=== PATIENT | female | born 1950 | race Caucasian/White ===

== ENCOUNTER → 2016-11-20 | Outpatient (CLI) | payer OTHER ==
[~2016-11-20] MED LIST: AMLO-110 PO; ASPI81TA28 PO; ATOR-24 PO; CIPR-255 PO; CLOP1TAB15 PO; DOCU-94 PO; LOSA50TA6 PO; MELA1TAB5 PO; METO50TA16 PO; NICO4GUM PO
== END | disposition home or self-care (01) ==
LOC: C.LABSPEC 17:16
PROVIDERS: ATTEND Urology
DX: C67.9 Malignant neoplasm of bladder, unspecified (principal)

== ENCOUNTER → 2017-04-08 | Outpatient (CLI) | payer OTHER ==
[~2017-04-08] MED LIST changes: +ASPI325T4 PO; +CALC200T PO; +CHOL100010 PO; +FSM70 PO; +NAPR1TAB9 PO; +PHEN-876 PO; +POTA10CA28 PO; +TPRSR/50 PO; +VITACAP37 PO
== END | disposition home or self-care (01) ==
LOC: C.LABSPEC 16:47
PROVIDERS: ATTEND Nurse Practitioner Family
DX: N39.0 Urinary tract infection, site not specified (principal)

== ENCOUNTER → 2017-06-25 | Outpatient (CLI) | payer OTHER ==
[~2017-06-25] MED LIST changes: -ASPI325T4 PO; -CALC200T PO; -CHOL100010 PO; -FSM70 PO; -NAPR1TAB9 PO; -PHEN-876 PO; -POTA10CA28 PO; -TPRSR/50 PO; -VITACAP37 PO
== END | disposition home or self-care (01) ==
LOC: C.PATHSPEC 17:26
PROVIDERS: ATTEND Urology
DX: C67.9 Malignant neoplasm of bladder, unspecified (principal)

== ENCOUNTER 2017-10-08 06:58 | Day surgery (SDC) | payer OTHER ==
[2017-10-02 09:57] VITALS: BMI 25.0
--- NOTE | 2017-10-02 10:37 | PAT Medication Instructions ---
Service Date Oct 02, 2017. Current Home Medication List Alendronate Sodium (Alendronate Sodium), 1 TAB PO WK Amlodipine (Norvasc), 5 MG PO QAM Aspirin (Aspirin), 325 MG PO QAM Atorvastatin (Lipitor), 40 TAB PO HS Calcium Carbonate-Vitamin D (Oscal 500/200 D-3), 1 TAB PO BID Cholecalciferol (Vitamin D), 1 TAB PO QAM Losartan Potassium (Cozaar), 50 MG PO QAM Melatonin (Kp Melatonin), 1 TAB PO HS Metoprolol Succinate (Metoprolol Succinate ER), 1 TAB PO BID Naproxen (Aleve), 220 MG PO DAILY PRN for Pain or Fever Potassium Chloride (Micro-K Ext Rel), 10 MEQ PO QAM Vitamin E (E-400), 1 TAB PO QAM Medication Instructions For Your Scheduled Surgery - Hold the following medications 3 days prior to surgery per surgeon's instructions: Aspirin (Aspirin), 325 MG PO QAM - Hold the following medications as of 10/03/17: Vitamin E (E-400), 1 TAB PO QAM Naproxen (Aleve), 220 MG PO DAILY PRN for Pain or Fever (per surgeon's instructions) - Continue as directed: Alendronate Sodium (Alendronate Sodium), 1 TAB PO WK - Hold the following medications the morning of surgery: Cholecalciferol (Vitamin D), 1 TAB PO QAM Losartan Potassium (Cozaar), 50 MG PO QAM Calcium Carbonate-Vitamin D (Oscal 500/200 D-3), 1 TAB PO BID Potassium Chloride (Micro-K Ext Rel), 10 MEQ PO QAM - Take the following medications the morning of surgery with a sip of water OTHERWISE NOTHING TO EAT OR DRINK AFTER MIDNIGHT: Amlodipine (Norvasc), 5 MG PO QAM Metoprolol Succinate (Metoprolol Succinate ER), 1 TAB PO BID - Take the following medications as scheduled the night before surgery: Melatonin (Kp Melatonin), 1 TAB PO HS Atorvastatin (Lipitor), 40 TAB PO HS Calcium Carbonate-Vitamin D (Oscal 500/200 D-3), 1 TAB PO BID Metoprolol Succinate (Metoprolol Succinate ER), 1 TAB PO BID If you have any questions please call us at [phone] or [phone] or [phone]
[2017-10-02 11:25] LABS: BASO % 0.1 %; BASO ABS # 0.01 K/uL (0-0.2); COMPLETE YES; EOS % 1.2 %; HEMATOCRIT 44.6 % (37-47); IG% 0.2 %; LYMPH % 23.7 %; LYMPH ABS # 2.11 K/uL (1.2-3.4); MEAN CELL VOLUME 93.3 fL (80-100); MEAN CORPUSCULAR HEMOGLOBIN 31.2 pg (25-34); MEAN CORPUSCULAR HGB CONC 33.4 g/dl (32-36); MEAN PLATELET VOLUME 9.7 fL (7.4-10.4); MONO % 8.5 %; NEUT % 66.3 %; PLATELET COUNT 227 K/uL (130-400); RED BLOOD COUNT 4.78 M/uL (4.2-5.4); WHITE BLOOD COUNT 8.89 K/uL (4.8-10.8)
[2017-10-02 11:34] LABS: URINE APPEARANCE CLEAR (CLEAR); URINE BILIRUBIN NEG (NEG); URINE COLOR YELLOW; URINE EPITHELIAL CELL AUTO >30 /lpf (0-5); URINE NITRITE NEG (NEG); URINE SPECIFIC GRAVITY 1.017 (1.000-1.030); UROBILINOGEN NEG (NEG)
[2017-10-02 11:36] LABS: MANUAL MICROSCOPIC REQUIRED? NO; REVIEW REQ? NO
--- NOTE | 2017-10-02 11:43 | DIAGNOSTIC IMAGING REPORT ---
TWO VIEW CHEST CLINICAL HISTORY: Preoperative examination. FINDINGS: PA and lateral chest radiographs are compared to study dated 08/10/2016. The heart is mildly enlarged and there is atherosclerotic calcification of the thoracic aorta. The pulmonary vasculature is noncongested. Linear atelectasis versus scarring is seen at the left lung base. No airspace consolidation or pleural effusion is identified. There is no pneumothorax. The skeletal structures are osteopenic. Degenerative change and scoliosis are noted in the thoracic spine. IMPRESSION: Mild cardiac enlargement with no active disease in the chest. Electronically signed by: Radu Alejo M.D. 10/02/2017 11:41 AM Dictated Date/Time: 10/02/2017 11:40 AM
[2017-10-02 12:13] LABS: BUN/CREATININE RATIO 29.4 (10-20); CALCIUM 9.5 mg/dl (8.5-10.1); CREATININE 0.69 mg/dl (0.60-1.20)
[~2017-10-08] VITALS: Ht 154.9 cm; Wt 61.3 kg
[~2017-10-08 06:58] MED LIST changes: +ASPI325T4 PO; -ASPI81TA28 PO; +CALC200T PO; +CHOL100010 PO; -CIPR-255 PO; +CIPROFLOXACIN / D5W 400 MG IV SCH; -CLOP1TAB15 PO; -DOCU-94 PO; +FSM70 PO; +LACTATED RINGER'S 1000ML 1,000 ML IV SCH; -METO50TA16 PO; +NAPR1TAB9 PO; -NICO4GUM PO; +POTA10CA28 PO; +TPRSR/50 PO; +VITACAP37 PO
[2017-10-08 07:35] VITALS: BP 123/70; PULSE 64; TEMP 36.9; O2SAT 98; Ht 154.9 cm; Wt 61.3 kg
[2017-10-08] MEDS ORDERED: ONDANSETRON INJ 2 MG/ML 2 ML VIAL ONE (07:54)
[2017-10-08] MEDS ORDERED: FENTANYL CITRATE INJ 50 MCG/1 ML 2 ML VIAL ONE (07:54)
[2017-10-08] MEDS ORDERED: EpHEDrine SULFATE 50MG/5ML SYR ONE (07:54)
[2017-10-08] MEDS ORDERED: PHENYLEPHRINE 100MCG/ML 5ML SYR ONE (07:54)
[2017-10-08] MEDS ORDERED: LIDOCAINE HCL 2% 2 ML VIAL (20MG/ML) ONE (07:54)
[2017-10-08] MEDS ORDERED: DEXAMETHASONE SOD INJ 4 MG/ML VIAL ONE (07:54)
[2017-10-08] MEDS ORDERED: MIDAZOLAM HCL 1 MG/ML 2ML VIAL ONE (07:54)
[2017-10-08] MEDS ORDERED: PROPOFOL IV EMULSION 10 MG/ML 20 ML VIAL IV ONE (07:54)
--- NOTE | 2017-10-08 08:40 | History & Physical Bridge Note ---
H&P Re-Evaluation Bridge Note: I have examined the patient, reviewed the History & Physical and in the interval since the performance of the History & Physical I have noted the following changes of clinical significance: No changes noted
[2017-10-08] MEDS ORDERED: MITOMYCIN FOR IR SCH (09:30)
[2017-10-08] MEDS ORDERED: EpHEDrine SULFATE INJ 50 MG/ML AMP IV PRN (09:45)
[2017-10-08] MEDS ORDERED: LABETALOL HCL IV 5 MG/ML 20ML IV PRN (09:45)
[2017-10-08] MEDS ORDERED: ONDANSETRON INJ 2 MG/ML 2 ML VIAL IV PRN (09:45)
[2017-10-08] MEDS ORDERED: MEPERIDINE HCL 25 MG/ML CARP IV PRN (09:45)
[2017-10-08] MEDS ORDERED: HYDROmorphone INJ 0.5 MG/0.5 ML SYR IV PRN (09:45)
[2017-10-08] MEDS ORDERED: FENTANYL CITRATE INJ 50 MCG/1 ML 2 ML VIAL IV PRN (09:45)
[2017-10-08] MEDS ORDERED: ATROPINE SULFATE 0.1 MG/ML 5ML SYR IV PRN (09:45)
--- NOTE | 2017-10-08 10:26 | [facility] Post Operative Brief Note ---
Immediate Operative Summary Operative Date Oct 08, 2017. Pre-Operative Diagnosis Primary Transitional cell carcinoma of bladder Post-Operative Diagnosis Primary Transitional cell carcinoma of bladder Procedure(s) Performed cysto multiple bladder biopsies around ureteral orifices and bladder neck Surgeon Dr. 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
[2017-10-08] MEDS ORDERED: PHEN-876 PO (10:28)
--- NOTE | 2017-10-08 10:30 | Discharge Instructions ---
Discharge Instructions Date of Service Oct 08, 2017. Visit Reason for Visit: Bladder Tumor Discharge Discharge Diagnosis / Problem: post op bladder biopsies Discharge Goals Goal(s): Improve disease control Activity Recommendations Activity Limitations: resume your previous activity Anesthesia . Post Anesthesia Instructions: If you have had General Anesthesia or IV Sedation: * Do not drive today. * Resume driving when surgeon permits. * Do not make important decisions or sign legal documents today. * Call surgeon for: 1. Temperature elevations greater than 101 degrees F. 2. Uncontrollable pain. 3. Excessive bleeding. 4. Persistent nausea and vomiting. 5. Medication intolerance (nausea, vomiting or rash). * For nausea and vomiting use only clear liquids such as: tea, soda, bouillon until nausea subsides, then gradually increase diet as tolerated. * If you have any concerns or questions, call your surgeon's office. If physician is unavailable and it is an emergency, call 911 or go to the nearest emergency room. . Diet Recommendations Recommended Home Diet: resume previous diet Procedures Procedures Performed: cysto multiple bladder biopsies around ureteral orifices and bladder neck Pending Studies Studies pending at discharge: no Medical Emergencies . Who to Call and When: Medical Emergencies: If at any time you feel your situation is an emergency, please call 911 immediately. . Non-Emergent Contact Non-Emergency issues call your: Urologist you have bleeding with clots that does not stop after several days , blood tinged urine is ok . . "Provider Documentation" section prepared by Anand Olivo. .
--- NOTE | 2017-10-08 10:36 | Anesthesiology Progress Note ---
Anesthesia Post Op Note Date & Time Oct 08, 2017 at 10:36 Vital Signs Pain Intensity: 0 Vital Signs Past 12 Hours Date Time Temp Pulse Resp B/P (MAP) Pulse Ox O2 Delivery O2 Flow Rate FiO2 10/08/17 10:25 83 18 114/68 97 Oxymask 10 10/08/17 10:15 78 16 105/66 96 Oxymask 10 10/08/17 10:05 36.4 81 18 109/66 95 Oxymask 10 10/08/17 07:35 36.9 64 18 123/70 (87) 98 Room Air Notes Mental Status: alert / awake / arousable, participated in evaluation Pt Amnestic to Procedure: Yes Nausea / Vomiting: adequately controlled Pain: adequately controlled Airway Patency, RR, SpO2: stable & adequate BP & HR: stable & adequate Hydration State: stable & adequate Anesthetic Complications: no major complications apparent
[2017-10-08 11:15] VITALS: BP 110/82; PULSE 81; TEMP 36.1; O2SAT 92
--- NOTE | 2017-10-08 11:28 | OPERATIVE REPORT ---
DATE OF OPERATION: 10/08/2017 DATE OF PROCEDURE: 10/08/2017. PROCEDURE PERFORMED: Multiple cup biopsies of the bladder. SURGEON: Dr. Anand Olivo. HISTORY OF PRESENTATION: The patient is a 67-year-old female who has had a long history of bladder cancer who has had several TURBTs in the past, whose last TURBT was not quite a year ago. She subsequently has had BCG who presented to the office with some changes in the bladder neck which she has had in the past, but could not rule out bladder cancer. The changes were inflammatory and there were some papillary changes and some erythema that mimicked CIS and possible papillary tumors. There also were changes that looked suspicious for cystitis glandularis. Because of the location around the ureteral orifices. bilaterally and right at the bladder neck, impossible to do adequate biopsies in the office. She is brought today for bladder biopsies and staging. DESCRIPTION OF THE PROCEDURE: The patient was taken to the operating room. She had been off aspirin for 3 days. She was given preoperative antibiotics. She was given general anesthesia with Venodyne stockings and placed in dorsal lithotomy position. Cystoscopy was performed initially with 110 degrees lens to thoroughly examine the bladder neck. There was a 7-8 mm papillary lesion right inside the bladder neck at the base of the trigone where it intersected with the bladder neck. There were some papillary changes at the bladder neck. There were some granulomatous changes around the left ureteral orifice and erythema around the right ureteral orifice, but clear efflux was seen bilaterally. Biopsies were taken around each ureteral orifice and then these areas were fulgurated. There was a lot of erythema which bleed easily and the fulguration was aggressive. Subsequent biopsies were taken of the papillary lesion on the right bladder neck and a second area in the left bladder neck and then another biopsy was taken lateral to the left ureteral orifice. All these areas were fulgurated. There was fulgurated anteriorly at the bladder neck that appeared also to be inflammatory and could not rule out tumor. At the end of the procedure, the rest of the bladder appeared clear. No other biopsies were taken. A Patiño catheter was placed and mitomycin was instilled and the catheter was clamped. She was sent to the recovery room in stable condition. I attest to the content of the Intraoperative Record and any orders documented therein. Any exception s are noted below.
[2017-10-08 11:45] VITALS: BP 122/63; PULSE 79; O2SAT 93
[2017-10-08 12:15] VITALS: BP 100/53; PULSE 82; TEMP 36.6; O2SAT 18
== END 2017-10-08 13:20 | disposition home or self-care (01) ==
LOC: C.ACU 06:58
PROVIDERS: ATTEND Urology
DX: C67.5 Malignant neoplasm of bladder neck (principal); I10 Essential (primary) hypertension; F17.200 Nicotine dependence, unspecified, uncomplicated; Z79.899 Other long term (current) drug therapy

== ENCOUNTER → 2017-11-05 | Outpatient (CLI) | payer OTHER ==
[~2017-11-05] MED LIST changes: -AMLO-110 PO; +AMLO5TAB3 PO; +CEFD1CAP14 PO; -CIPROFLOXACIN / D5W 400 MG IV SCH; +ENOX40IN SQ; +HYDR-5688 PO; -LACTATED RINGER'S 1000ML 1,000 ML IV SCH; +ONDA4TAB10 SL; +OPTIRAY 320 IV PRN; +PHEN-876 PO
--- NOTE | 2017-11-05 10:07 | DIAGNOSTIC IMAGING REPORT ---
CT ABD/PELVIS COMBO CLINICAL HISTORY: C67.9 Carcinoma of [id number] Gross hematuria/ COMPARISON STUDY: 07/17/2016 TECHNIQUE: Unenhanced images were obtained to the abdomen and pelvis. The patient was injected with 50 cc of Optiray 320. Findings 5 delay, the patient was rescanned in a dynamic helical fashion during intravenous administration of additional 68 cc of Optiray 320. A dose lowering technique was utilized adhering to the principles of ALARA. CT DOSE: 1015.20 mGycm FINDINGS: Lower chest: There are mild basilar atelectatic changes. Liver: There is a stable 1 cm hypodense lesion within the left hepatic lobe, consistent with a cyst. Gallbladder: Unremarkable. Spleen: Normal in size and attenuation. Pancreas: Unremarkable. Adrenal glands: Unremarkable. Kidneys: No renal, ureteral, or bladder calculi are visualized. There are tiny subcentimeter renal hypodensities, similar to the prior study and likely representing cysts. No solid renal masses are visualized. There is mild right-sided hydronephrosis with a dilated renal pelvis. This may be secondary to a congenital UPJ obstruction. The findings appear similar to the preceding study. There is an extrarenal pelvis on the left. No collecting system or ureteral filling defects are visualized. Bowel: There are no transition zones indicate bowel obstruction. No acute inflammatory changes are visualized. Peritoneum: There is no intraperitoneal free air or abdominal ascites. Vasculature: The abdominal aorta is normal in course and caliber. Adenopathy: None. Pelvic viscera: The uterus appears surgically absent. There is mild bladder base thickening with wall calcification. Skeletal structures: No destructive osseous lesions are seen. IMPRESSION: 1. Mild thickening and calcification of the bladder base 2. No evidence of pathologic adenopathy 3. No upper tract mucosal lesions identified 4. No renal, ureteral, or bladder calculi identified 5. Persistent mild UPJ type obstruction on the right Electronically signed by: Mendez Guardado M.D. 11/05/2017 10:05 AM Dictated Date/Time: 11/05/2017 9:54 AM
== END | disposition home or self-care (01) ==
LOC: C.CTS 09:25
PROVIDERS: ATTEND Urology
DX: C67.9 Malignant neoplasm of bladder, unspecified (principal); R31.0 Gross hematuria; R93.41 Abnormal radiologic findings on diagnostic imaging of renal pelvis, ureter, or bladder; Q62.39 Other obstructive defects of renal pelvis and ureter

== ENCOUNTER 2017-12-23 16:11 | Emergency (ER) | payer OTHER ==
[~2017-12-23] VITALS: Ht 154.9 cm; Wt 60.5 kg
[~2017-12-23 16:11] MED LIST changes: +AMLO-110 PO; -AMLO5TAB3 PO; -CEFD1CAP14 PO; -ENOX40IN SQ; -HYDR-5688 PO; -ONDA4TAB10 SL; -OPTIRAY 320 IV PRN
[2017-12-23 16:21] VITALS: TEMP 36.9; Ht 154.9 cm; Wt 60.5 kg
[2017-12-23] MEDS ORDERED: SODIUM CHLORIDE 0.9% 1000ML 1,000 ML IV STA (18:32)
[2017-12-23 19:06] LABS: BASO % 0.1 %; BASO ABS # 0.02 K/uL (0-0.2); EOS % 0.6 %; HEMATOCRIT 34.4 % (37-47); IG# 0.07 K/uL (0.00-0.02); LYMPH ABS # 0.62 K/uL (1.2-3.4); MEAN CELL VOLUME 88.4 fL (80-100); MEAN CORPUSCULAR HEMOGLOBIN 30.8 pg (25-34); MEAN CORPUSCULAR HGB CONC 34.9 g/dl (32-36); MEAN PLATELET VOLUME 8.4 fL (7.4-10.4); MONO ABS # 0.94 K/uL (0.11-0.59); NEUT % 88.9 %; PLATELET COUNT 420 K/uL (130-400); RED CELL DISTRIBUTION WIDTH CV 14.3 % (11.5-14.5); RED CELL DISTRIBUTION WIDTH SD 46.2 fL (36.4-46.3); WHITE BLOOD COUNT 15.65 K/uL (4.8-10.8)
[2017-12-23 19:25] LABS: ALBUMIN 1.8 gm/dl (3.4-5.0); CALCIUM 10.2 mg/dl (8.5-10.1); CREATININE 1.15 mg/dl (0.60-1.20); POTASSIUM 3.9 mmol/L (3.5-5.1)
[2017-12-23 19:28] LABS: TOTAL PROTEIN 6.5 gm/dl (6.4-8.2)
--- NOTE | 2017-12-23 19:33 | EMERGENCY ROOM VISIT NOTE ---
History Report prepared by Julieth: Rosa Velasquez Under the Supervision of: Dr. Kevon Swan D.O. First contact with patient: 18:24 Chief Complaint: GI ASSESSMENT Stated Complaint: C-DIFF Nursing Triage Summary: Diarrhea since Saturday. Worsened today. She relates that it is almost constant. History of Present Illness The patient is a 67 year old female who presents to the Emergency Room with complaints of worsening diarrhea starting 3 days ago. She has never had diarrhea like this before. She states her diarrhea is resolved as long as she does not eat or drink. She reports some nausea, but denies any vomiting. She is having abdominal pain and back pain. She denies any fever. She denies any history of C diff. The patient has a history of bladder removal, hypertension, hysterectomy, and spinal stenosis. Source of History: patient Onset: 3 days ago Position: other (global) Quality: other (diarrhea) Timing: worsening Associated Symptoms: + nausea, + abdominal pain, + back pain, No fevers, No vomiting Review of Systems See HPI for pertinent positives & negatives. A total of 10 systems reviewed and were otherwise negative. Past Medical & Surgical Medical Problems: (1) Bladder cancer (2) Chest pain (3) Hypertension (4) PVD (peripheral vascular disease) Surgical Problems: (1) History of hysterectomy (2) History of procedure for peripheral vascular disease (3) S/P urological surgery Family History FH: heart disease Hypertension Social History Smoking Status: Former Smoker Marital Status: Housing Status: lives alone Current/Historical Medications Scheduled Alendronate Sodium (Alendronate Sodium), 70 MG PO WK Amlodipine (Norvasc), 5 MG PO QAM Aspirin (Aspirin), 325 MG PO QAM Atorvastatin (Lipitor), 40 MG PO DAILY Calcium Carbonate-Vitamin D (Oscal 500/200 D-3), 1 TAB PO BID Cefdinir (Omnicef), 300 MG PO Q12H Cholecalciferol (Vitamin D), 1 TAB PO QAM Enoxaparin (Lovenox), 40 MG SQ DAILY Losartan Potassium (Cozaar), 50 MG PO QAM Melatonin (Kp Melatonin), 1 TAB PO HS Metoprolol Succinate (Metoprolol Succinate ER), 1 TAB PO BID Ondasetron Odt (Zofran Odt), 4 MG SL Q6H Phenazopyridine HCl (Pyridium), 200 MG PO TID Potassium Chloride (Micro-K Ext Rel), 10 MEQ PO QAM Vitamin E (E-400), 1 TAB PO QAM Scheduled PRN Naproxen (Aleve), 220 MG PO DAILY PRN for Pain or Fever Allergies Coded Allergies: No Known Allergies (Unverified , 10/02/17) Physical Exam Vital Signs Date Time Temp Pulse Resp B/P (MAP) Pulse Ox O2 Delivery O2 Flow Rate FiO2 12/23/17 21:49 87 16 93/56 92 12/23/17 21:17 84 16 106/57 91 Room Air 12/23/17 19:44 94 18 109/59 93 Room Air 12/23/17 18:26 85 16 100/58 96 Room Air 12/23/17 16:21 36.9 100 20 113/68 92 Room Air Physical Exam GENERAL: Patient is awake, alert, and in no acute distress. Patient is resting comfortably and showing no signs of anxiety EYES: The conjunctivae are clear. The pupils are round and reactive. EARS, NOSE, MOUTH AND THROAT: The nose is without any evidence of any deformity. Mucous membranes are moist tongue is midline NECK: The neck is nontender and supple. RESPIRATORY: Normal respiratory effort is noted there is no evidence of wheezing rhonchi or rales CARDIOVASCULAR: Regular rate and rhythm noted there no murmurs rubs or gallops normal S1 normal S2 GASTROINTESTINAL: The abdomen is mildly distended with tenderness in both lower quadrants. There was a bladder stoma noted in the suprapubic region. Clear yellow urine was noted. MUSCULOSKELETAL/EXTREMITIES: There is no evidence of gross deformity full range of motion is noted in the hips and shoulders SKIN: There is no obvious evidence of any rash. There are no petechiae, pallor or cyanosis noted. NEUROLOGIC: Patient is awake alert and oriented x3 Medical Decision & Procedures ER Provider Diagnostic Interpretation: X-ray results as stated below per interpretation by me and the radiologist. ABDOMEN 2VIEW W/PA CHEST RTN CLINICAL HISTORY: ABDOMINAL PAIN/GI pain COMPARISON STUDY: 10/02/2017 FINDINGS: Chronic atelectatic change left lung base. Lungs otherwise appear clear. There is right-sided ostomy. Ureteral stents are present possibly from an ileal conduit. Nonobstructive bowel pattern. 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 Nonobstructive bowel pattern. No acute process the chest. The above report was generated using voice recognition software. It may contain grammatical, syntax or spelling errors. Electronically signed by: Santana Gastelum M.D. 12/23/2017 8:55 PM Dictated Date/Time: 12/23/2017 8:54 PM Laboratory Results 12/23/17 18:55 Red Blood Count 3.89, Mean Corpuscular Volume 88.4, Mean Corpuscular Hemoglobin 30.8, Mean Corpuscular Hemoglobin Concent 34.9, Mean Platelet Volume 8.4, Neutrophils (%) (Auto) 88.9, Lymphocytes (%) (Auto) 4.0, Monocytes (%) (Auto) 6.0, Eosinophils (%) (Auto) 0.6, Basophils (%) (Auto) 0.1, Neutrophils # (Auto) 13.90, Lymphocytes # (Auto) 0.62, Monocytes # (Auto) 0.94, Eosinophils # (Auto) 0.10, Basophils # (Auto) 0.02 12/23/17 18:55 Test 12/23/17 18:55 12/23/17 19:38 White Blood Count 15.65 K/uL (4.8-10.8) Red Blood Count 3.89 M/uL (4.2-5.4) Hemoglobin 12.0 g/dL (12.0-16.0) Hematocrit 34.4 % (37-47) Mean Corpuscular Volume 88.4 fL (80-100) Mean Corpuscular Hemoglobin 30.8 pg (25-34) Mean Corpuscular Hemoglobin Concent 34.9 g/dl (32-36) Platelet Count 420 K/uL (130-400) Mean Platelet Volume 8.4 fL (7.4-10.4) Neutrophils (%) (Auto) 88.9 % Lymphocytes (%) (Auto) 4.0 % Monocytes (%) (Auto) 6.0 % Eosinophils (%) (Auto) 0.6 % Basophils (%) (Auto) 0.1 % Neutrophils # (Auto) 13.90 K/uL (1.4-6.5) Lymphocytes # (Auto) 0.62 K/uL (1.2-3.4) Monocytes # (Auto) 0.94 K/uL (0.11-0.59) Eosinophils # (Auto) 0.10 K/uL (0-0.5) Basophils # (Auto) 0.02 K/uL (0-0.2) RDW Standard Deviation 46.2 fL (36.4-46.3) RDW Coefficient of Variation 14.3 % (11.5-14.5) Immature Granulocyte % (Auto) 0.4 % Immature Granulocyte # (Auto) 0.07 K/uL (0.00-0.02) Anion Gap 10.0 mmol/L (3-11) Est Creatinine Clear Calc Drug Dose 39.1 ml/min Estimated GFR () 56.6 Estimated GFR (Non- 48.9 BUN/Creatinine Ratio 19.3 (10-20) Calcium Level 10.2 mg/dl (8.5-10.1) Total Bilirubin 0.7 mg/dl (0.2-1) Direct Bilirubin 0.2 mg/dl (0-0.2) Aspartate Amino Transf (AST/SGOT) 68 U/L (15-37) Alanine Aminotransferase (ALT/SGPT) 71 U/L (12-78) Alkaline Phosphatase 73 U/L (45-117) Total Protein 6.5 gm/dl (6.4-8.2) Albumin 1.8 gm/dl (3.4-5.0) Lipase 145 U/L (73-393) Urine Color DK YELLOW Urine Appearance TURBID (CLEAR) Urine pH 5.5 (4.5-7.5) Urine Specific [place]ley 1.017 (1.000-1.030) Urine Protein 2+ (NEG) Urine Glucose (UA) NEG (NEG) Urine Ketones TRACE (NEG) Urine Occult Blood 2+ (NEG) Urine Nitrite NEG (NEG) Urine Bilirubin NEG (NEG) Urine Urobilinogen NEG (NEG) Urine Leukocyte Esterase LARGE (NEG) Urine WBC (Auto) >30 /hpf (0-5) Urine RBC (Auto) 5-10 /hpf (0-4) Urine Hyaline Casts (Auto) >30 /lpf (0-5) Urine Epithelial Cells (Auto) >30 /lpf (0-5) Urine Bacteria (Auto) 4+ (NEG) Urine Pathogenic Casts 5-10 GRANULAR CASTS /lpf (0) Urine Yeast (Auto) (NONE PRSENT) Date/Time Source Procedure Growth Status 12/23/17 19:38 Stool C.difficile Toxin B Gene (PCR) - Final No C. difficile toxin B gene detected Complete Laboratory results per my review. Medications Administered Medications (Trade) Dose Ordered Sig/Dyana Route Start Time Stop Time Status Last Admin Dose Admin Sodium Chloride 1,000 ml @ 999 mls/hr Q1H1M STAT IV 12/23/17 18:32 12/23/17 19:32 DC 12/23/17 19:42 999 MLS/HR Cefdinir (Omnicef Cap) 600 mg ONE STAT PO 12/23/17 21:12 12/23/17 21:13 DC 12/23/17 21:44 600 MG ED Course 1829: The patient was evaluated in room C8. A complete history and physical examination were performed. 1831: NSS 1000 ml @ 999 mls/hr IV. 2111: Cefdinir 600 mg PO. 2129: Upon reevaluation, the patient is resting comfortably. I discussed the results and treatment plan with her. She verbalized agreement of the treatment plan. She was discharged home. Medical Decision Prior records/ancillary studies reviewed. Triage Nursing notes reviewed. The patient's history was concerning for abdominal pain. Differential diagnosis: Etiologies such as appendicitis, diverticulitis, PUD, biliary pathology, UTI, pancreatitis, obstruction, mesenteric ischemia, aortic pathology, infections, inflammatory bowel disease, renal colic, as well as others were entertained. The patient is a 67-year-old female who presented to the emergency department for evaluation of diarrhea and malaise. The patient had recent surgery. She was found to have signs of urinary tract infection on urinalysis. Her stool was sent for studies and was negative for C. difficile. The patient was treated with IV fluids as well as antibiotics in the emergency department. She was reevaluated multiple times. I discussed patient's laboratory and radiographic studies with her. She was encouraged to rest and avoid any strenuous activity. She was also encouraged to follow-up with her primary care physician for further evaluation but return to the emergency department immediately if symptoms change worsening of the need arises. Medication Reconcilliation Current Medication List: was personally reviewed by me Blood Pressure Screening Patient's blood pressure: Normal blood pressure Blood pressure disposition: Did not require urgent referral Impression Primary Impression: Diarrhea Additional Impression: UTI (urinary tract infection) Scribe Attestation The scribe's documentation has been prepared under my direction and personally reviewed by me in its entirety. I confirm that the note above accurately reflects all work, treatment, procedures, and medical decision making performed by me. Departure Information Dispostion Home / Self-Care Prescriptions Ondasetron Odt (ZOFRAN ODT) 4 Mg Tab 4 MG SL Q6H for Nausea, #15 TAB Prov: Kevon Swan, DO 12/23/17 Cefdinir (Omnicef) 300 Mg Cap 300 MG PO Q12H, #14 CAP Prov: Kevon Swan, DO 12/23/17 Referrals Ashwin Ji PA-C (PCP) Anand Olivo M.D. Forms HOME CARE DOCUMENTATION FORM, IMPORTANT VISIT INFORMATION Patient Instructions Diarrhea, My [facility], Urinary Tract Infecs Women Additional Instructions Continue all medications as prescribed. Drink plenty of clear liquids. Follow- up with your family doctor as well as her primary urologist as soon as possible. Return to the emergency department immediately if symptoms change worsen or the need arises. Problem Qualifiers Primary Impression: Diarrhea Diarrhea type: unspecified type Qualified Codes: R19.7 - Diarrhea, unspecified Additional Impression: UTI (urinary tract infection) Urinary tract infection type: catheter-associated UTI Indwelling urinary catheter type: cystostomy catheter Encounter type: initial encounter Qualified Codes: T83.510A - Infection and inflammatory reaction due to cystostomy catheter, initial encounter; N39.0 - Urinary tract infection, site not specified
--- NOTE | 2017-12-23 20:57 | DIAGNOSTIC IMAGING REPORT ---
ABDOMEN 2VIEW W/PA CHEST RTN CLINICAL HISTORY: ABDOMINAL PAIN/GI pain COMPARISON STUDY: 10/02/2017 FINDINGS: Chronic atelectatic change left lung base. Lungs otherwise appear clear. There is right-sided ostomy. Ureteral stents are present possibly from an ileal conduit. Nonobstructive bowel pattern. 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 Nonobstructive bowel pattern. No acute process the chest. The above report was generated using voice recognition software. It may contain grammatical, syntax or spelling errors. Electronically signed by: Santana Gastelum M.D. 12/23/2017 8:55 PM Dictated Date/Time: 12/23/2017 8:54 PM
[2017-12-23] MEDS ORDERED: ENOX40IN SQ (21:12)
[2017-12-23] MEDS ORDERED: CEFDINIR 300 MG CAP PO STA (21:12)
[2017-12-23] MEDS ORDERED: ATOR-24 PO (21:22)
[2017-12-23] MEDS ORDERED: ONDA4TAB10 SL (21:27)
[2017-12-23] MEDS ORDERED: CEFD1CAP14 PO (21:27)
[2017-12-23 21:49] VITALS: BP 93/56; PULSE 87; O2SAT 92
== END 2017-12-23 21:50 | disposition home or self-care (01) ==
LOC: C.EDB 16:19 → C.EDC 21:50
DX: R19.7 Diarrhea, unspecified (principal); N39.0 Urinary tract infection, site not specified; T83.510A Infection and inflammatory reaction due to cystostomy catheter, initial encounter; X58.XXXA Exposure to other specified factors, initial encounter; I10 Essential (primary) hypertension; I73.9 Peripheral vascular disease, unspecified; Z82.49 Family history of ischemic heart disease and other diseases of the circulatory system; Z87.891 Personal history of nicotine dependence; Z79.82 Long term (current) use of aspirin

== ENCOUNTER → 2018-01-16 | Outpatient (CLI) | payer OTHER ==
[~2018-01-16] MED LIST changes: +CEFD1CAP14 PO; +ENOX40IN SQ; +ONDA4TAB10 SL
[2018-01-16 12:21] LABS: BASO % 0.2 %; BASO ABS # 0.02 K/uL (0-0.2); EOS ABS # 0.16 K/uL (0-0.5); HEMATOCRIT 34.5 % (37-47); HEMOGLOBIN 11.3 g/dL (12.0-16.0); IG# 0.08 K/uL (0.00-0.02); LYMPH % 18.6 %; MEAN CELL VOLUME 89.6 fL (80-100); MEAN CORPUSCULAR HEMOGLOBIN 29.4 pg (25-34); MEAN CORPUSCULAR HGB CONC 32.8 g/dl (32-36); MEAN PLATELET VOLUME 8.9 fL (7.4-10.4); MONO % 8.2 %; MONO ABS # 0.66 K/uL (0.11-0.59); NEUT ABS # 5.63 K/uL (1.4-6.5); PLATELET COUNT 545 K/uL (130-400); RED CELL DISTRIBUTION WIDTH CV 14.4 % (11.5-14.5); RED CELL DISTRIBUTION WIDTH SD 46.9 fL (36.4-46.3); WHITE BLOOD COUNT 8.05 K/uL (4.8-10.8)
[2018-01-16 12:56] LABS: BLOOD UREA NITROGEN 16 mg/dl (7-18); CALCIUM 9.3 mg/dl (8.5-10.1); CARBON DIOXIDE 27 mmol/L (21-32); CREATININE 0.76 mg/dl (0.60-1.20); GLUCOSE 107 mg/dl (70-99); POTASSIUM 3.6 mmol/L (3.5-5.1); SODIUM 139 mmol/L (136-145)
== END | disposition home or self-care (01) ==
LOC: C.LABPBG 10:11
PROVIDERS: ATTEND Urology
DX: C67.9 Malignant neoplasm of bladder, unspecified (principal)

== ENCOUNTER → 2018-01-29 | Day surgery (SDC) | payer OTHER ==
[~2018-01-29] VITALS: Ht 156.2 cm; Wt 56.0 kg
[~2018-01-29] MED LIST changes: +ATROPINE SULFATE 0.1 MG/ML 5ML SYR IV PRN; +CEFAZOLIN 2000MG IV PUSH 15 ML IV SCH; +CEFAZOLIN SOD 1 GM VIAL ONE; +CONRAY 60% 50 ML VIAL ONE; +EpHEDrine SULFATE INJ 50 MG/ML AMP IV PRN; +FENTANYL CITRATE INJ 50 MCG/1 ML 2 ML VIAL IV PRN; +FENTANYL CITRATE INJ 50 MCG/1 ML 2 ML VIAL ONE; +HEPARIN SOD (PORCINE) 1000 UNIT/ML 10 ML VIAL ONE; +HYDR-5688 PO; +HYDROCODONE/ACETAMIN 5/325MG TAB PO PRN; +KETAMINE HCL INJ 50 MG/ML 10 ML VIAL ONE; +LACTATED RINGER'S 1000ML 1,000 ML IV SCH; +LIDOCAINE HCL 1% 20 ML VIAL ONE; +LIDOCAINE HCL 2% 2 ML VIAL (20MG/ML) ONE; +MIDAZOLAM HCL 1 MG/ML 2ML VIAL ONE; +ONDANSETRON INJ 2 MG/ML 2 ML VIAL IV PRN; +PROPOFOL IV EMULSION 10 MG/ML 20 ML VIAL IV ONE; +THROMBIN FOR SOLN 20000 UNIT KIT ONE
[2018-01-29 05:32] VITALS: BP 117/60; PULSE 67; TEMP 36.9; O2SAT 95; Ht 156.2 cm; Wt 56.0 kg
--- NOTE | 2018-01-29 07:34 | Discharge Instructions ---
Discharge Instructions Date of Service Jan 29, 2018. Visit Reason for Visit: Bladder Cancer Discharge Discharge Diagnosis / Problem: A-port Discharge Goals Goal(s): Therapeutic intervention Activity Recommendations Activity Limitations: resume your previous activity Shower/Bathe: keep incision dry (for 2 days) Anesthesia . Post Anesthesia Instructions: If you have had General Anesthesia or IV Sedation: * Do not drive today. * Resume driving when surgeon permits. * Do not make important decisions or sign legal documents today. * Call surgeon for: 1. Temperature elevations greater than 101 degrees F. 2. Uncontrollable pain. 3. Excessive bleeding. 4. Persistent nausea and vomiting. 5. Medication intolerance (nausea, vomiting or rash). * For nausea and vomiting use only clear liquids such as: tea, soda, bouillon until nausea subsides, then gradually increase diet as tolerated. * If you have any concerns or questions, call your surgeon's office. If physician is unavailable and it is an emergency, call 911 or go to the nearest emergency room. . Instructions / Follow-Up Instructions / Follow-Up Dr. Goncalves office in 2 weeks for suture removal, call [phone] if you do not already have an appt or have any questions Diet Recommendations Recommended Home Diet: no limitations Pending Studies Studies pending at discharge: no Medical Emergencies . Who to Call and When: Medical Emergencies: If at any time you feel your situation is an emergency, please call 911 immediately. . Non-Emergent Contact Non-Emergency issues call your: Surgeon Call Non-Emergent contact if: you have a fever, temperature is above 101.5, your pain is not controlled, wound has increased redness, you have any medication questions . . "Provider Documentation" section prepared by Kvng Roland. .
--- NOTE | 2018-01-29 07:49 | [facility] Operative Report ---
Operative Report Operative Date Jan 29, 2018. Pre-Operative Diagnosis Carcinoma of bladder Post-Operative Diagnosis Carcinoma of bladder Procedure(s) Performed Insertion of A-Port Surgeon Dr. Singleton Geodetic Engineer Surgeon(s) none Estimated Blood Loss 5 ML Findings placed via Lt cephalic vein Specimens none per surgeon Anesthesia Type MAC Complication(s) none Disposition Recovery Room / PACU I attest to the content of the Intraoperative Record and any orders documented therein. Any exceptions are noted below.
[2018-01-29 07:55] VITALS: BP 117/62; PULSE 67; TEMP 36.8; O2SAT 92
--- NOTE | 2018-01-29 08:05 | OPERATIVE REPORT ---
DATE OF OPERATION: 01/29/2018 NAME OF OPERATION: Port placement. PREOPERATIVE DIAGNOSIS: Bladder cancer. POSTOPERATIVE DIAGNOSIS: Same. STAFF SURGEON: Alfredo Singleton MD. ANESTHESIA: 1% plain lidocaine with sedation. DESCRIPTION OF PROCEDURE: The patient was brought into the operating room and placed on the operating table in supine position. Her chest was prepped and draped in usual fashion. The skin and subcutaneous tissue over the left deltopectoral groove were anesthetized. Incision made carrying dissection down identifying the left cephalic vein which was ligated distally using 2-0 silk suture. It was opened and under fluoroscopy, a catheter was passed into the superior vena cava. The catheter was secured using 2-0 silk suture. It was aspirated and flushed with heparinized solution. A pocket was fashioned in the chest wall. The port was attached to the catheter, placed into the pocket and secured to the chest wall using 3-0 Prolene suture. The port was aspirated and flushed with heparinized solution. The site was irrigated with antibiotic solution. Subcutaneous tissue was reapproximated using 2-0 chromic catgut suture and then the skin reapproximated using 4-0 nylon suture. Dressing applied and patient transferred to recovery room in stable condition. I attest to the content of the Intraoperative Record and any orders documented therein. Any exception s are noted below.
--- NOTE | 2018-01-29 08:06 | OPERATIVE REPORT ---
DATE OF OPERATION: 01/29/2018 NAME OF OPERATION: Fluoroscopy used for port placement. PROCEDURE: The patient in the operating room undergoing port placement where I was able to use fluoroscopy to place the catheter in the superior vena cava. I attest to the content of the Intraoperative Record and any orders documented therein. Any exception s are noted below.
[2018-01-29 08:25] VITALS: BP 111/60; PULSE 70; TEMP 36.7; O2SAT 95
--- NOTE | 2018-01-29 08:33 | Anesthesiology Progress Note ---
Anesthesia Post Op Note Date & Time Jan 29, 2018 at 08:33 Vital Signs Pain Intensity: 0 Vital Signs Past 12 Hours Date Time Temp Pulse Resp B/P (MAP) Pulse Ox O2 Delivery O2 Flow Rate FiO2 01/29/18 07:55 36.8 67 18 117/62 92 Room Air 01/29/18 05:32 36.9 67 18 117/60 (79) 95 Room Air Notes Mental Status: alert / awake / arousable, participated in evaluation Pt Amnestic to Procedure: Yes Nausea / Vomiting: adequately controlled Pain: adequately controlled Airway Patency, RR, SpO2: stable & adequate BP & HR: stable & adequate Hydration State: stable & adequate Anesthetic Complications: no major complications apparent
== END | disposition home or self-care (01) ==
LOC: C.ACU 05:13
PROVIDERS: ATTEND Surgery
DX: C67.9 Malignant neoplasm of bladder, unspecified (principal); I10 Essential (primary) hypertension; F17.200 Nicotine dependence, unspecified, uncomplicated; Z87.440 Personal history of urinary (tract) infections; Z90.710 Acquired absence of both cervix and uterus; Z82.49 Family history of ischemic heart disease and other diseases of the circulatory system

== ENCOUNTER → 2018-02-04 | Outpatient (CLI) | payer OTHER ==
[~2018-02-04] MED LIST changes: -ATROPINE SULFATE 0.1 MG/ML 5ML SYR IV PRN; -CEFAZOLIN 2000MG IV PUSH 15 ML IV SCH; -CEFAZOLIN SOD 1 GM VIAL ONE; -CEFD1CAP14 PO; -CONRAY 60% 50 ML VIAL ONE; -ENOX40IN SQ; -EpHEDrine SULFATE INJ 50 MG/ML AMP IV PRN; -FENTANYL CITRATE INJ 50 MCG/1 ML 2 ML VIAL IV PRN; -FENTANYL CITRATE INJ 50 MCG/1 ML 2 ML VIAL ONE; -HEPARIN SOD (PORCINE) 1000 UNIT/ML 10 ML VIAL ONE; -HYDROCODONE/ACETAMIN 5/325MG TAB PO PRN; -KETAMINE HCL INJ 50 MG/ML 10 ML VIAL ONE; -LACTATED RINGER'S 1000ML 1,000 ML IV SCH; -LIDOCAINE HCL 1% 20 ML VIAL ONE; -LIDOCAINE HCL 2% 2 ML VIAL (20MG/ML) ONE; -MIDAZOLAM HCL 1 MG/ML 2ML VIAL ONE; -ONDANSETRON INJ 2 MG/ML 2 ML VIAL IV PRN; +OPTIRAY 320 IV PRN; -PHEN-876 PO; -PROPOFOL IV EMULSION 10 MG/ML 20 ML VIAL IV ONE; -THROMBIN FOR SOLN 20000 UNIT KIT ONE
--- NOTE | 2018-02-04 16:02 | DIAGNOSTIC IMAGING REPORT ---
CT SCAN OF THE CHEST, ABDOMEN, AND PELVIS WITH IV CONTRAST CLINICAL HISTORY: Bladder cancer. COMPARISON STUDY: Chest x-ray dated 10/02/2017. Abdominal CT dated 11/05/2017. TECHNIQUE: Following the IV administration of 115 of Optiray 320, CT scan of the chest, abdomen, and pelvis was performed from the thoracic inlet to the proximal femora. Images are reviewed in the axial, sagittal, and coronal planes. IV contrast was administered without complication. Automated dose control exposure was utilized. A dose lowering technique was utilized adhering to the principles of ALARA. CT DOSE: 456.67 mGy.cm FINDINGS: CHEST: Thyroid: Imaged portions of the thyroid gland are normal in size and attenuation. Thoracic aorta: There is atherosclerotic calcification of the thoracic aorta, which is normal in caliber and demonstrates standard 3-vessel arch anatomy. No dissection is seen. A left subclavian central venous infusion port is in place. Pulmonary vasculature: The pulmonary trunk is normal in caliber. There are no filling defects identified in the central pulmonary vessels to indicate pulmonary embolus. Note that this examination was not protocoled for evaluation of the pulmonary arteries. Heart: The heart is mildly enlarged and without pericardial effusion. There are coronary artery calcifications. Lungs and pleural spaces: Emphysematous change is identified. No airspace consolidation or pleural effusion is seen. The trachea and central airways are clear. Bibasilar scarring versus atelectasis is noted. No concerning pulmonary lesion is identified. Mediastinum: There is no mediastinal lymphadenopathy. Zohreh: Clear. Axillae: There is no axillary lymphadenopathy. Bony thorax: The skeletal structures are osteopenic. Degenerative change and mild hyperkyphosis are noted in the thoracic spine. No lytic or blastic lesions are identified. ABDOMEN AND PELVIS: Liver: The contrast-enhanced liver is normal in size, contour, and attenuation. There is no intrahepatic or ductal dilatation. The hepatic veins and portal veins are patent. An 11 mm cyst is noted in the left hepatic lobe. Gallbladder: Unremarkable. Spleen: Normal in size and attenuation. Pancreas: Unremarkable. Adrenal glands: Unremarkable. Kidneys: The contrast enhanced kidneys are demonstrate cortical atrophy. There is mild right hydronephrosis. There is fullness of the left renal pelvis and small extrarenal pelvises are seen bilaterally. The ureters are normal in caliber. The kidneys enhance symmetrically. Scattered subcentimeter cortical hypodensities likely represent cysts but are too small for definitive characterization. Abdominal vasculature: The abdominal aorta is normal in course and caliber noting advanced atherosclerotic calcification. Bowel: There is moderate colonic fecal retention. No bowel obstruction is identified. A small bowel anastomosis is noted in the pelvis and there is a diverging right lower quadrant urostomy. The appendix is not identified and reported surgically absent. Peritoneum: There is no intraperitoneal free air or abdominal ascites. There is a small fat-containing umbilical hernia. Lymphadenopathy: There is an enlarged left iliac chain lymph node seen on image #252. This measures 1.5 x 1.3 cm. Pelvic viscera: The the bladder and uterus are surgically absent. No adnexal lesion is seen. Skeletal structures: The skeletal structures are osteopenic. There is mild to moderate lumbosacral spondylosis. Mild anterolisthesis is noted at L5-S1. Sclerotic degenerative change is noted in the sacroiliac joints. No lytic or blastic lesions are seen. IMPRESSION: 1. There is no evidence of intrathoracic metastatic disease. 2. Cardiomegaly and emphysema. 3. There is no airspace consolidation or pleural effusion. 4. There are postoperative changes from bladder resection and right lower quadrant urostomy. 5. There is a mildly enlarged left iliac chain lymph node. This is nonspecific and metastatic disease is not excluded. 6. No additional findings are concerning for metastatic disease in the abdomen or pelvis. 7. Mild right hydronephrosis is similar to previous. The right ureter is normal in caliber and this likely represents a UPJ type obstruction. 8. Moderate colonic fecal retention. 9. Additional findings as above. Electronically signed by: Radu Alejo M.D. 02/04/2018 4:01 PM Dictated Date/Time: 02/04/2018 3:44 PM
== END | disposition home or self-care (01) ==
LOC: C.CTS 13:29
PROVIDERS: ATTEND Internal Medicine Hematology & Oncology
DX: C67.3 Malignant neoplasm of anterior wall of bladder (principal)

== ENCOUNTER → 2018-05-21 | Outpatient (CLI) | payer OTHER ==
[~2018-05-21] MED LIST changes: -AMLO-110 PO; +AMLO5TAB3 PO; -OPTIRAY 320 IV PRN
[2018-05-21 13:06] LABS: BASO % 0.2 %; BASO ABS # 0.01 K/uL (0-0.2); EOS % 0.6 %; EOS ABS # 0.03 K/uL (0-0.5); HEMATOCRIT 33.1 % (37-47); HEMOGLOBIN 10.7 g/dL (12.0-16.0); IG# 0.01 K/uL (0.00-0.02); LYMPH % 23.4 %; LYMPH ABS # 1.24 K/uL (1.2-3.4); MEAN CELL VOLUME 93.8 fL (80-100); MEAN CORPUSCULAR HEMOGLOBIN 30.3 pg (25-34); MEAN CORPUSCULAR HGB CONC 32.3 g/dl (32-36); MEAN PLATELET VOLUME 9.4 fL (7.4-10.4); MONO % 1.1 %; MONO ABS # 0.06 K/uL (0.11-0.59); NEUT % 74.5 %; NEUT ABS # 3.94 K/uL (1.4-6.5); PLATELET COUNT 335 K/uL (130-400); RED CELL DISTRIBUTION WIDTH CV 19.3 % (11.5-14.5); RED CELL DISTRIBUTION WIDTH SD 66.5 fL (36.4-46.3); WHITE BLOOD COUNT 5.29 K/uL (4.8-10.8)
[2018-05-21 13:55] LABS: ALBUMIN 3.1 gm/dl (3.4-5.0); ALKALINE PHOSPHATASE 69 U/L (45-117); ALT/SGPT 26 U/L (12-78); AST/SGOT 19 U/L (15-37); BLOOD UREA NITROGEN 22 mg/dl (7-18); CALCIUM 9.6 mg/dl (8.5-10.1); CARBON DIOXIDE 26 mmol/L (21-32); CREATININE 1.13 mg/dl (0.60-1.20); GLUCOSE 124 mg/dl (70-99); POTASSIUM 3.2 mmol/L (3.5-5.1); SODIUM 135 mmol/L (136-145); TOTAL PROTEIN 6.3 gm/dl (6.4-8.2)
== END | disposition home or self-care (01) ==
LOC: C.LABPBG 09:54
PROVIDERS: ATTEND Internal Medicine Hematology & Oncology
DX: C67.3 Malignant neoplasm of anterior wall of bladder (principal)

== ENCOUNTER 2019-01-22 19:16 | Inpatient (IN) ==
[2019-01-22 20:26] LABS: Appearance Urine Turbid (Clear); Bilirubin Urine Negative (Negative); Blood Urine Negative (Negative); Color Urine Yellow; Glucose Urine UA Negative (Negative); Ketones Urine Negative (Negative); Leukocyte Esterase Urine Trace (Negative); Nitrite Urine Positive (Negative); Protein Urine Negative (Negative); Specific Gravity Urine 1.003 (1.000-1.030); Urobilinogen Urine Negative (Negative)
[2019-01-22 21:05] LABS: Amorphous Sediment Urine Present (None Prsent); Cast Urine Automated 0 /lpf (0-5); RBC Urine Automated 0-4 /hpf (0-4)
[2019-01-22 21:06] LABS: Bacteria Urine Automated 1+ (Negative)
[2019-01-22] MEDS ORDERED: ACETAMINOPHEN 1,000 MG/100 ML VIAL IV STA (21:19)
[2019-01-22] MEDS ORDERED: SODIUM CHLORIDE 0.9% 1000ML 1,000 ML IV SCH (21:30)
[2019-01-22 21:50] LABS: Eosinophils # (auto) 0.02 K/uL (0-0.5); Eosinophils % (auto) 0.8 %; Hematocrit (blood only) 30.9 % (37-47); Hemoglobin 10.4 g/dL (12.0-16.0); Immature Granulocytes # (auto) 0.02 K/uL (0.00-0.02); Immature Granulocytes % (auto) 0.8 %; Lymphocytes # (auto) 0.66 K/uL (1.2-3.4); Mean Corpuscular Hgb Conc 33.7 g/dL (32-36); Mean Corpuscular Volume 93.9 fL (80-100); Mean Platelet Volume 9.7 fL (7.4-10.4); Monocytes # (auto) 0.13 K/uL (0.11-0.59); Monocytes % (auto) 5.5 %; Neutrophils # (auto) 1.53 K/uL (1.4-6.5); Neutrophils % (auto) 64.9 %; Platelet Count 138 K/uL (130-400); RDW Coefficient of Variation 18.3 % (11.5-14.5); RDW Standard Deviation 60.9 fL (36.4-46.3); Red Blood Count 3.29 M/uL (4.2-5.4); White Blood Count 2.36 K/uL (4.8-10.8)
[2019-01-22 22:08] LABS: Albumin Level 2.6 gm/dl (3.4-5.0); BUN Creatinine Ratio 24.4 (10-20); Calcium 8.5 mg/dl (8.5-10.1); Creatinine Clr Calc Pharmacy 56.2 ml/min; Est GFR (African American) 97.4; Potassium 3.1 mmol/L (3.5-5.1)
[2019-01-22 22:11] LABS: Albumin Globulin Ratio 0.9 (0.9-2); Bilirubin,Total 1.2 mg/dl (0.2-1); Globulin 2.9 gm/dl (2.5-4.0); Total Protein 5.5 gm/dl (6.4-8.2)
[2019-01-22] MEDS ORDERED: IOVERSOL 100ml IV PRN (22:49)
--- NOTE | 2019-01-22 23:42 | CT Scan Report ---
CT OF THE ABDOMEN AND PELVIS WITH CONTRAST CLINICAL HISTORY: Abdominal pain. Bladder cancer. COMPARISON STUDY: CT of the abdomen and pelvis September 08, 2018. PET/CT July 21, 2018. TECHNIQUE: Following IV administration of 93 mL of Optiray-320, axial images of the abdomen and pelvi s were obtained from the lung bases to the proximal femurs. Images were reviewed in the axial, sagitt al, and coronal planes. IV contrast was administered without complication. Automated exposure contro l was utilized for the study. A dose lowering technique was utilized adhering to the principles of A CHASE. CT DOSE: 241.42 mGy.cm FINDINGS: The heart is moderately enlarged. There has been interval development of bilateral lower lo be and right middle lobe airspace opacity. No pneumatosis, free air or portal venous gas is present. Note is made of interval development of multiple hypodense hepatic lesions since CT of September 08 18. The largest is a 1.9 cm segment 7 lesion. The spleen, adrenal glands and pancreas are unremarkabl e. There is material within the gallbladder. There is mild gallbladder wall thickening. Mild biliary ductal dilatation has developed. A right lower quadrant urostomy is noted. Moderate bilateral hydrone phrosis, greater on the right, is minimally increased. No pneumatosis, free air or portal venous gas is present. There is no evidence for a bowel obstruction. There is extensive aortoiliac plaque. A few mildly enlarged left iliac lymph nodes are similar to prior exam. A destructive lesion within the le ft inferior pubic ramus has increased in size since CT of September 08, 2018. This measures 5.1 cm. Den sity of this metastasis is decreased since treatment planning CT of November 05, 2018. An additional 1. 9 cm left inferior pubic ramus lesion is noted. There is associated pathologic fracture. There is a n ondisplaced fracture of the left superior pubic ramus. There is been interval development of multiple skeletal lesions, including a 1.7 cm right acetabular lesion and a 1.2 cm proximal left femoral lesi on. Lower abdominal and pelvic infiltration is noted. This is nonspecific. Left adrenal nodularity is noted. Ill-defined mesenteric nodules have developed. IMPRESSION: 1. Interval development of multiple small hepatic metastases and progression of skeletal metastatic d isease. 2. Sludge or stones within the gallbladder with mild gallbladder wall thickening. This could be corre lated with right upper quadrant pain. Interval development of biliary ductal dilatation which could b e correlated with liver function tests. 3. Lower lung opacities which favor pneumonia. Atelectasis could appear similar. 4. Status post post cystectomy with right lower quadrant urostomy. Slight increase in moderate bilate ral hydronephrosis, greater on the right. 5. No significant change in left inguinal lymphadenopathy. New ill-defined mesenteric nodules which m ay reflect metastatic disease. Nonspecific mesenteric infiltration. Electronically signed by: Simone Nieves M.D. 01/22/2019 11:39 PM
[2019-01-23] MEDS ORDERED: AMPICILLIN/SULBACTAM SOD 3,000 MG in 0.9 % SODIUM CHLORIDE 100 ML IV STA (00:34)
[2019-01-23] MEDS ORDERED: DOXYCYCLINE HYCLATE 100 MG in DEXTROSE 5% 100 ML IV STA (00:34)
[2019-01-23] MEDS ORDERED: POTASSIUM CHLORIDE / WTR 10 MEQ/100 ML PLCT IV ONE (00:41)
[2019-01-23] MEDS ORDERED: SODIUM CHLORIDE 0.9% 1000ML 1,000 ML IV SCH (00:45)
--- NOTE | 2019-01-23 01:18 | Emergency Department Note ---
Entered by Zuelyma Eduardo acting as a scribe for History of Present Illness General Chief complaint: Ostomy Problem Stated complaint: BLADDER PROBLEMS- CHEMO PT Time Seen by Provider: 01/22/19 20:41 Source: patient Mode of arrival: ambulatory Limitations: no limitations History of Present Illness Provider complaint: burning Onset (ago): day(s) (a few) Location: abdomen Pain Consistency: + other (persistent) Maximum Pain Intensity: 10 Current Pain Intensity: 6 Quality: + burning Associated symptoms: + denies other symptoms (diarrhea) and + other (dizzy, cramping); no fever/chills and no nausea/vomiting The patient is a 68 year old female who presents to the Emergency Room with com plaints of a persistent dysuria that began a few days ago. The patient reports that she has felt a burning sensation when urinating. She states that she has a history of bladder cancer and did have urostomy bag placed a year ago last month. She denies ever having any previous infections. She also denies any nausea, vomiting or diarrhea but notes she has been dizzy and had a cramping sensation around the site. She denies any fevers but reports she is always cold. She states that her last cancer treatment was 1.5 weeks ago and that she always has lab work done the day before receiving treatment. Home Medications Home Medications Medication Instructions Recorded Confirmed Type Oscal 500 mg PO BID 01/23/19 01/23/19 History alendronate [Fosamax] 70 mg PO WK 01/23/19 01/23/19 History amlodipine 5 mg PO DAILY 01/23/19 01/23/19 History aspirin, buffered 325 mg PO DAILY 01/23/19 01/23/19 History atorvastatin 40 mg PO DAILY 01/23/19 01/23/19 History cholecalciferol (vitamin D3) 1,000 unit PO DAILY 01/23/19 01/23/19 History [Vitamin D3] gabapentin 300 mg PO DIRECTED 01/23/19 01/23/19 History melatonin 1 - 3 mg PO HS PRN 01/23/19 01/23/19 History metoprolol succinate 50 mg PO BID 01/23/19 01/23/19 History oxycodone 5 mg PO DAILY PRN 01/23/19 01/23/19 History potassium chloride 10 meq PO DAILY 01/23/19 01/23/19 History vitamin E 400 unit PO DAILY 01/23/19 01/23/19 History Allergies Allergy/AdvReac Type Severity Reaction Status Date / Time No Known Allergies Allergy Verified 01/23/19 00:03 Past Med/Surg History Medical History PVD (peripheral vascular disease) (Chronic) "s/p stent placement" Hypertension (Chronic) Bladder cancer (Chronic) Gross hematuria 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 Status post cystoscopy and biopsy July 26, 2016 Reoccurrence October 08, 2017 right neck of the bladder Status post radical cystectomy December 10, 2017 Systemic chemotherapy with cisplatin and Gemzar beginning February 14, 2018 Enlarging left common iliac lymph nodes beginning February 2018 Bone metastasis left inferior pubic ramus noted July 02, 2018 Arthritis (Chronic) Hyperlipemia (Chronic) Hypertension (Chronic) Osteoporosis (Chronic) Surgical History History of procedure for peripheral vascular disease (Chronic) S/P urological surgery (Chronic) History of hysterectomy (Chronic) H/O hysterectomy with oophorectomy (Resolved) H/O total cystectomy (Resolved) History of appendectomy (Resolved) Family History Mother , Passed age 84 of Alzheimers No problems noted. Father , Passed age 64 of PA No problems noted. Brother No problems noted. Brother No problems noted. Brother No problems noted. Brother No problems noted. Son Cerebral aneurysm Son Cerebral aneurysm Social History Preferred Language: Japanese Communication Ability: Effective Rn Medicare Required: No Beliefs That Will Affect Care: Protestant marital status: Current Living Situation: Alone current occupational status: retired current occupation: Retired from [employer] Other Information That Helps Us Care for You: No Feels Safe at Home: Yes Safety Concerns: Feels Safe At This Time Smoking Status: Current some day smoker Hx Alcohol Use: Yes Hx Substance Use: No well-balanced diet: daily or most days caffeine: No during the past year weight has: decreased > 10 lbs Review of Systems See HPI for pertinent positives & negatives. and A total of 10 systems reviewed and were otherwise negative Physical Exam Vital Signs Vital Signs - 24 hr 01/22/19 19:53 01/22/19 20:24 01/22/19 21:53 Temperature 37.1 C Temperature Source Oral Sepsis Recent Fever Within 48 Hours No Sepsis New/Unexplained Change in Mental Status No Sepsis Action Taken by Nursing No Action Required Pulse Rate 86 Pulse Rate [Right Finger] 87 80 Pulse Rhythm Regular Pulse Rhythm [Right Finger] Regular Regular Pulse Strength Normal Pulse Strength [Right Finger] Normal Normal Respiratory Rate 17 20 20 Respiratory Effort / Characteristics Non-Labored Spontaneous Non-Labored Spontaneous Non-Labored Spontaneous Respiratory Depth Normal Normal Normal Respiratory Pattern Regular Blood Pressure 103/62 Blood Pressure [Left Arm] Blood Pressure [Right Arm] 107/58 L 119/65 Blood Pressure Mean 75 Blood Pressure Mean [Left Arm] Blood Pressure Mean [Right Arm] 74 83 Blood Pressure Position Sitting Pulse Oximetry 93 93 89 L Oxygen Delivery Method Room Air Room Air Room Air Oxygen Flow Rate 01/22/19 21:54 01/22/19 23:30 01/23/19 00:00 Temperature 37 C Temperature Source Oral Sepsis Recent Fever Within 48 Hours Sepsis New/Unexplained Change in Mental Status Sepsis Action Taken by Nursing Pulse Rate Pulse Rate [Right Finger] 82 Pulse Rhythm Pulse Rhythm [Right Finger] Regular Pulse Strength Pulse Strength [Right Finger] Normal Respiratory Rate 20 Respiratory Effort / Characteristics Non-Labored Spontaneous Respiratory Depth Normal Respiratory Pattern Blood Pressure Blood Pressure [Left Arm] Blood Pressure [Right Arm] 101/50 L Blood Pressure Mean Blood Pressure Mean [Left Arm] Blood Pressure Mean [Right Arm] 67 Blood Pressure Position Pulse Oximetry 93 97 Oxygen Delivery Method Nasal Cannula Room Air Oxygen Flow Rate 2 01/23/19 02:00 01/23/19 02:39 01/23/19 03:22 Temperature 36.7 C Temperature Source Oral Sepsis Recent Fever Within 48 Hours Sepsis New/Unexplained Change in Mental Status Sepsis Action Taken by Nursing Pulse Rate Pulse Rate [Right Finger] 95 H 70 71 Pulse Rhythm Pulse Rhythm [Right Finger] Regular Pulse Strength Pulse Strength [Right Finger] Normal Respiratory Rate 20 20 16 Respiratory Effort / Characteristics Non-Labored Spontaneous Non-Labored Spontaneous Non-Labored Respiratory Depth Normal Normal Normal Respiratory Pattern Regular Regular Blood Pressure Blood Pressure [Left Arm] 122/59 L Blood Pressure [Right Arm] 112/55 L 106/60 Blood Pressure Mean Blood Pressure Mean [Left Arm] 80 Blood Pressure Mean [Right Arm] 74 75 Blood Pressure Position Pulse Oximetry 95 97 98 Oxygen Delivery Method Room Air Nasal Cannula Nasal Cannula Oxygen Flow Rate 2 3 GENERAL: Awake, alert, chronically ill-appearing, in no distress HENT: Normocephalic, atraumatic. Oropharynx with dry mucous membranes and otherwise unremarkable. EYES: Normal conjunctiva. Sclera non-icteric. NECK: Supple. No nuchal rigidity. FROM. No JVD. RESPIRATORY: Diminished breath sounds at the bases but otherwise clear to auscultation. CARDIAC: Regular rate, normal rhythm. Extremities warm and well perfused. Pulses equal. ABDOMEN: Soft, non-distended. Generalized abdominal discomfort without discrete tenderness to palpation. No rebound or guarding. No masses. Urostomy site in RLQ without surrounding erythema or warmth. RECTAL: Deferred. MUSCULOSKELETAL: Chest examination reveals no tenderness. The back is symmetrical on inspection without obvious abnormality. There is no CVA tenderness to palpation. No joint edema. LOWER EXTREMITIES: Calves are equal size bilaterally and non-tender. No edema. No discoloration. NEURO: Normal sensorium. No sensory or motor deficits noted. SKIN: No rash or jaundice noted. Course 2057: Past medical records reviewed. The patient was evaluated in room A9A, and a complete history and physical examination were performed. Administered Medications Potassium Chloride/Sodium Chloride (Normal Saline W/20 Meq Kcl) 20 meq in 1,000 mls @ 100 mls/hr IV .Q10H SUSHMA Stop: 02/22/19 02:14 Last Admin: 01/23/19 03:16 Dose: 100 mls/hr Documented by: [id number] Piperacillin Sod/Tazobactam (Sod 3.375 gm/ Dextrose) 115 mls @ 230 mls/hr IV NOW ONE; Protocol Stop: 01/23/19 04:29 Last Admin: 01/23/19 03:57 Dose: 230 mls/hr Documented by: [id number] Ioversol (Optiray 320 100ml) 93 ml IV ONCE PRN PRN Reason: Interaction Checking Stop: 01/26/19 22:48 Last Admin: 01/22/19 22:50 Dose: 93 ml Documented by: [id number] Discontinued Medications Acetaminophen (Ofirmev) 1,000 mg in 100 mls @ 400 mls/hr IV NOW STA Stop: 01/22/19 21:33 Last Infusion: 03/21/19 22:23 Dose: 0 mls/hr Documented by: [id number] Admin: 01/22/19 21:52 Dose: 400 mls/hr Documented by: [id number] Sodium Chloride (Nss 1000ml) 1,000 mls @ 999 mls/hr IV .Q1H1M SUSHMA Stop: 01/22/19 22:30 Last Infusion: 01/22/19 22:58 Dose: 0 mls/hr Documented by: [id number] Admin: 01/22/19 21:52 Dose: 999 mls/hr Documented by: [id number] Ampicillin Sodium/Sulbactam Sodium 3,000 mg/ Sodium Chloride 108 mls @ 200 mls/hr IV NOW STA Stop: 01/23/19 01:06 Last Infusion: 01/23/19 02:15 Dose: 0 mls/hr Documented by: [id number] Admin: 01/23/19 01:45 Dose: 200 mls/hr Documented by: [id number] Doxycycline Hyclate 100 mg/ (Dextrose) 110 mls @ 50 mls/hr IV NOW STA Stop: 01/23/19 02:45 Last Admin: 01/23/19 02:15 Dose: 50 mls/hr Documented by: [id number] Sodium Chloride (Nss 1000ml) 1,000 mls @ 125 mls/hr IV .Q8H [facility] Stop: 02/22/19 00:44 Last Admin: 01/23/19 00:50 Dose: 125 mls/hr Documented by: [id number] Potassium Chloride (K Daquan / Wtr) 10 meq in 100 mls @ 100 mls/hr IV ONE ONE Stop: 01/23/19 01:40 Last Infusion: 01/23/19 01:45 Dose: 0 mls/hr Documented by: [id number] Admin: 01/23/19 00:50 Dose: 100 mls/hr Documented by: [id number] Medical Decision Making Differential Diagnosis Differential diagnosis includes: gastritis, peptic ulcer disease, GERD, gallbladder disease, pancreatitis, small bowel obstruction, acute coronary syndrome, pericarditis, ischemic bowel, irritable bowel disease, irritable bowel syndrome, appendicitis, diverticulitis, malignancy, hernia, UTI, torsion, perforation, trauma, and kidney stones. Medical Records Attestation: I reviewed the patient's medical records. Home Medications Current Medication List: was personally reviewed by me Laboratory Data Attestation: I reviewed the patient's lab results. Result diagrams: 01/22/19 21:40 01/22/19 21:40 Lab Results 01/22/19 01/22/19 01/22/19 Range/Units 20:03 21:40 21:40 WBC 2.36 L (4.8-10.8) K/uL RBC 3.29 L (4.2-5.4) M/uL Hgb 10.4 L (12.0-16.0) g/dL Hct 30.9 L (37-47) % MCV 93.9 (80-100) fL MCH 31.6 (25-34) pg MCHC 33.7 (32-36) g/dL RDW Std Deviation 60.9 H (36.4-46.3) fL RDW Coeff of [place] 18.3 H (11.5-14.5) % Plt Count 138 (130-400) K/uL MPV 9.7 (7.4-10.4) fL Immature Gran % (Auto) 0.8 % Neut % (Auto) 64.9 % Lymph % (Auto) 28.0 % Nelson % (Auto) 5.5 % Eos % (Auto) 0.8 % Baso % (Auto) 0.0 % Immature Gran # (Auto) 0.02 (0.00-0.02) K/uL Neut # (Auto) 1.53 (1.4-6.5) K/uL Lymph # (Auto) 0.66 L (1.2-3.4) K/uL Nelson # (Auto) 0.13 (0.11-0.59) K/uL Eos # (Auto) 0.02 (0-0.5) K/uL Baso # (Auto) 0.00 (0-0.2) K/uL Sodium 136 (136-145) mmol/L Potassium 3.1 L (3.5-5.1) mmol/L Chloride 103 (98-107) mmol/L Carbon Dioxide 27 (21-32) mmol/L Anion Gap 6.0 (3-11) BUN 18 (7-18) mg/dl Creatinine 0.73 (0.6-1.2) mg/dl Est Cr Clr Drug Dosing 56.2 ml/min Est GFR ( Amer) 97.4 Est GFR (Non-Af Amer) 84.0 BUN/Creatinine Ratio 24.4 H (10-20) Glucose 113 H (70-99) mg/dl Calcium 8.5 (8.5-10.1) mg/dl Total Bilirubin 1.2 H (0.2-1) mg/dl AST 15 (15-37) U/L ALT 27 (12-78) U/L Alkaline Phosphatase 66 (45-117) U/L Total Protein 5.5 L (6.4-8.2) gm/dl Albumin 2.6 L (3.4-5.0) gm/dl Globulin 2.9 (2.5-4.0) gm/dl Albumin/Globulin Ratio 0.9 (0.9-2) Lipase 36 L (73-393) U/L Urine Color Yellow Urine Appearance Turbid H (Clear) Urine pH 8.0 H (4.5-7.5) Ur Specific [place] 1.003 (1.000-1.030) Urine Protein Negative (Negative) Urine Glucose (UA) Negative (Negative) Urine Ketones Negative (Negative) Urine Blood Negative (Negative) Urine Nitrite Positive H (Negative) Urine Bilirubin Negative (Negative) Urine Urobilinogen Negative (Negative) Ur Leukocyte Esterase Trace H (Negative) Urine WBC (Auto) 1-5 (0-5) /hpf Urine RBC (Auto) 0-4 (0-4) /hpf U Hyaline Cast (Auto) 0 (0-5) /lpf U Epithel Cells (Auto) 5-10 H (0-5) /lpf Urine Bacteria (Auto) 1+ H (Negative) Ur Renal Epithelial Cell Not Reportable Amorphous Sediment Present H (None Prsent) Imaging Data Radiologist's Impression: Radiology results as stated below per my review and the radiologist's interpretation: CT OF THE ABDOMEN AND PELVIS WITH CONTRAST CLINICAL HISTORY: Abdominal pain. Bladder cancer. COMPARISON STUDY: CT of the abdomen and pelvis September 08, 2018. PET/CT July 21, 2018. TECHNIQUE: Following IV administration of 93 mL of Optiray-320, axial images of the abdomen and pelvis were obtained from the lung bases to the proximal femurs. Images were reviewed in the axial, sagittal, and coronal planes. IV contrast was administered without complication. Automated exposure control was utilized for the study. A dose lowering technique was utilized adhering to the principles of ALARA. CT DOSE: 241.42 mGy.cm FINDINGS: The heart is moderately enlarged. There has been interval development of bilateral lower lobe and right middle lobe airspace opacity. No pneumatosis, free air or portal venous gas is present. Note is made of interval development of multiple hypodense hepatic lesions since CT of September 08, 2018. The largest is a 1.9 cm segment 7 lesion. The spleen, adrenal glands and pancreas are unremarkable. There is material within the gallbladder. There is mild gallbladder wall thickening. Mild biliary ductal dilatation has developed. A right lower quadrant urostomy is noted. Moderate bilateral hydronephrosis, greater on the right, is minimally increased. No pneumatosis, free air or portal venous gas is present. There is no evidence for a bowel obstruction. There is ex tensive aortoiliac plaque. A few mildly enlarged left iliac lymph nodes are similar to prior exam. A destructive lesion within the left inferior pubic ramus has increased in size since CT of September 08, 2018. This measures 5.1 cm. Density of this metastasis is decreased since treatment planning CT of November 05, 2018. An additional 1.9 cm left inferior pubic ramus lesion is noted. There is associated pathologic fracture. There is a nondisplaced fracture of the left superior pubic ramus. There is been interval development of multiple skeletal lesions, including a 1.7 cm right acetabular lesion and a 1.2 cm proximal left femoral lesion. Lower abdominal and pelvic infiltration is noted. This is nonspecific. Left adrenal nodularity is noted. Ill-defined mesenteric nodules have developed. IMPRESSION: 1. Interval development of multiple small hepatic metastases and progression of skeletal metastatic disease. 2. Sludge or stones within the gallbladder with mild gallbladder wall [place]. This could be correlated with right upper quadrant pain. Interval development of biliary ductal dilatation which could be correlated with liver function tests. 3. Lower lung opacities which favor pneumonia. Atelectasis could appear similar. 4. Status post post cystectomy with right lower quadrant urostomy. Slight increase in moderate bilateral hydronephrosis, greater on the right. 5. No significant change in left inguinal lymphadenopathy. New ill-defined mesenteric nodules which may reflect metastatic disease. Nonspecific mesenteric infiltration. Electronically signed by: Simone Nieves M.D. 01/22/2019 11:39 PM Blood Pressure Blood Pressure Findings: Low blood pressure Blood Pressure Disposition: further management by hospitalist ROSALEE Narrative The patient is a pleasant 68-year-old woman with a past medical history of invasive bladder cancer who is status post urostomy and currently undergoing salvage chemotherapy with carboplatin and paclitaxel who presents emergency department with generalized weakness and lightheadedness with associated abdominal pain and concern for warmth of her urostomy site per hpi. On arrival the patient is chronically ill-appearing but no acute distress, afebrile stable vital signs. Patient appears clinically dry. She has diminished breath sounds at the bases but otherwise lungs are clear to auscultation bilaterally. She has generalized abdominal discomfort without discrete tenderness. Urostomy site in the right lower quadrant is without surrounding erythema or warmth. WBC 2.36 with ANC of 1.53. H/H 10.4/30.9 similar to recent values. Platelets within normal limits. Chemistry without acidosis. Total bilirubin marginally elevated at 1.2 and otherwise AST, ALT and alk phos within normal limits. UA from patient's urostomy site with positive nitrites, trace leuk esterase, 5-10 epithelial cells and 1+ bacteria. CT of abdomen pelvis demonstrates interval development of small hepatic metastases and progression of skeletal metastatic disease. There is sludge or stones within the gallbladder with mild thickening as well as interval development of biliary ductal dilatation however patient has a negative Langston sign and LFTs are reassuring. Basilar lung opacities is suspicious for pneumonia. There is a slight increase in the patient's bilateral hydronephrosis which is greater on the right. Additionally, there is new mesenteric nodules which is likely reflective of metastatic disease. Patient feeling improved after IV fluid hydration. However upon ambulation the patient became near syncopal. Additionally, the patient did become hypoxic to 89% on room air. Will treat for pneumonia. Given basilar location will treat with Augmentin for possible aspiration with doxycycline for atypical coverage. Case d/w Dr. Hobbs, [facility] hospitalist, who will evaluated the pateint for admission. Impression & Plan Pneumonia, Metastatic disease Discharge Plan Visit Data *Final* Discharge Date/Time: 01/23/19 02:48 Chief Complaint: Ostomy Problem Stated Complaint: BLADDER PROBLEMS- CHEMO PT ED Provider: Jacob Thompson Discharge Problem: Pneumonia, Metastatic disease Patient Disposition: Admitted As Inpatient Discharge Instructions Interventions: ED Discharge Assessment Last Done: 03/22/19 02:48 The scribe's documentation has been prepared under my direction and personally reviewed by me in its entirety. I confirm that the note above accurately reflects all work, treatment, procedures, and medical decision making performed by me.
[2019-01-23] MEDS ORDERED: VANCOMYCIN CONSULT ACTIVE PRN (03:05)
[2019-01-23] MEDS ORDERED: PIPERACILLIN/TAZOBACTAM 4.5 GM in DEXTROSE 5% 100 ML IV STA (03:05)
[2019-01-23] MEDS ORDERED: ACETAMINOPHEN 1000 MG/100 ML IV IV PRN (03:05)
[2019-01-23] MEDS ORDERED: ACETAMINOPHEN 325 MG TAB PO PRN (03:05)
[2019-01-23] MEDS ORDERED: POLYETHYLENE (MIRALAX) 17 GM PACK PO PRN (03:05)
[2019-01-23] MEDS ORDERED: ONDANSETRON INJ 2 MG/ML 2 ML VIAL IV PRN (03:05)
[2019-01-23] MEDS ORDERED: PIPERACILL/TAZOBAC CONSULT ACTIVE PRN (03:05)
[2019-01-23] MEDS: NSS + 20MEQ KCL 20 MEQ/1,000 ML BAG IV SCH ×2 (03:16→13:55)
[2019-01-23] MEDS ORDERED: ACETAMINOPHEN IV PRN (03:45)
[2019-01-23] MEDS ORDERED: VANCOMYCIN HCL 1,250 MG in SODIUM CHLORIDE 0.9% 250 ML IV SCH (04:00)
[2019-01-23] MEDS ORDERED: PIPERACILLIN/TAZOBACTAM 3.375 GM in DEXTROSE 5% 100 ML IV ONE (04:00)
--- NOTE | 2019-01-23 06:06 | History & Physical Report ---
Date of Service January 23, 2019 Assessment & Plan (1) Pathological fracture in neoplastic disease, pelvis, initial encounter for fracture: Bladder cancer/status post cystectomy with right lower quadrant urostomy/new metastases to the liver and bone/pain and pathologic fracture from bone metastases affecting ambulation-- Changes on imaging studies have progressed significantly since September. She is handling surprisingly well the discomfort that she must be having associated with multiple pelvic bone metastases. A destructive lesion within the left inferior pubic ramus has increased in size to 5.1 cm since 09/08/18. There is an additional 1.9 cm left inferior pubic ramus lesion, with associated pathologic fracture. There is a nondisplaced fracture of the left superior pubic ramus. There has been interval development of multiple skeletal lesions: A 1.7 cm right acetabular lesion, a 1.2 cm proximal left femoral lesion. There is lower abdominal and pelvic infiltration. There is left adrenal nodularity. There are ill-defined mesenteric nodules. We will consult her oncologist Dr. Shea. She has been seen by radiation oncology in the past, and we will consult them as well. Consult physical therapy/Occupational Therapy once seen by other consultants. A palliative care consult should be considered. Present on Admission?: Yes (2) Pain from bone metastases: See above Present on Admission?: Yes (3) Pneumonia: Pneumonia bilateral lower lobes and right middle lobe-- She received Unasyn IV and doxycycline IV in the ED. Treat as healthcare associated and relatively immunocompromised due to ongoing chemotherapy. Placed on vancomycin IV and Zosyn IV. Duonebs every 4 hours while awake and every 2 hours when necessary. Present on Admission?: Yes (4) Bladder cancer: As above Present on Admission?: Yes (5) History of total cystectomy: As above Present on Admission?: Yes (6) Presence of urostomy: As above Present on Admission?: Yes (7) PVD (peripheral vascular disease): Peripheral vascular disease/hypertension/history of unknown procedure/hypertension/extensive aortoiliac disease noted on CT-- Continue treatment for hypertension, and hyperlipidemia. Present on Admission?: Yes (8) Hyperlipidemia LDL goal <70: Continue atorvastatin 40 mg p.o. daily Present on Admission?: Yes (9) Hypertension: Hold amlodipine and metoprolol succinate due to relative hypotension. Continue aspirin 325 mg p.o. daily Present on Admission?: Yes (10) Peripheral neuropathy due to chemotherapy: Gabapentin 300 mg p.o. as directed, unclear what the directions are. We will be consulting Dr. Shea who prescribed it. Present on Admission?: Yes (11) Metastases to the liver: CT notes the interval development of multiple hypodense hepatic lesions since most recent CT of September 08, 2018, with the largest being 1.9 cm. There is mild gallbladder wall thickening, and mild biliary ductal dilatation. Present on Admission?: Yes (12) Common bile duct dilatation: Patient has essentially normal LFTs except for bilirubin slight increase to 1.2, and no specific symptoms. Suspect associated with metastatic disease. We will repeat laboratories, and if bilirubin and/or enzymes continue to elevate, could perform an MRCP and/or ERCP with GI consult. Present on Admission?: Yes History of Present Illness Chief Complaint: The patient presented to the emergency department with complaint of generalized weakness, and abnormal warm sensation in her pelvis, and "having to be careful when she walks due to pelvic pain". Primary Care Provider: Ashwin Ji The patient is a 68-year-old female with a past medical history including bladder cancer, status post cystectomy with right lower quadrant urostomy, who presents with progressive generalized weakness, dyspnea on exertion, abnormal sensation in her lower abdomen and pelvis, and difficulty with ambulation secondary to pelvic bone pain. When she called her doctor's office, and described the abnormal sensation in her pelvis, she was advised to come to the emergency department for assessment. Allergies Allergy/AdvReac Type Severity Reaction Status Date / Time No Known Allergies Allergy Verified 01/23/19 00:03 Home Medications Home Medications Medication Instructions Recorded Confirmed Type Oscal 500 mg PO BID 01/23/19 01/23/19 History alendronate [Fosamax] 70 mg PO WK 01/23/19 01/23/19 History amlodipine 5 mg PO DAILY 01/23/19 01/23/19 History aspirin, buffered 325 mg PO DAILY 01/23/19 01/23/19 History atorvastatin 40 mg PO DAILY 01/23/19 01/23/19 History cholecalciferol (vitamin D3) 1,000 unit PO DAILY 01/23/19 01/23/19 History [Vitamin D3] gabapentin 300 mg PO DIRECTED 01/23/19 01/23/19 History melatonin 1 - 3 mg PO HS PRN 01/23/19 01/23/19 History metoprolol succinate 50 mg PO BID 01/23/19 01/23/19 History oxycodone 5 mg PO DAILY PRN 01/23/19 01/23/19 History potassium chloride 10 meq PO DAILY 01/23/19 01/23/19 History vitamin E 400 unit PO DAILY 01/23/19 01/23/19 History Past Med/Surg History Medical History PVD (peripheral vascular disease) (Chronic) "s/p stent placement" Hypertension (Chronic) Bladder cancer (Chronic) Gross hematuria 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 Status post cystoscopy and biopsy July 26, 2016 Reoccurrence October 08, 2017 right neck of the bladder Status post radical cystectomy December 10, 2017 Systemic chemotherapy with cisplatin and Gemzar beginning February 14, 2018 Enlarging left common iliac lymph nodes beginning February 2018 Bone metastasis left inferior pubic ramus noted July 02, 2018 Arthritis (Chronic) Hyperlipemia (Chronic) Hypertension (Chronic) Osteoporosis (Chronic) Surgical History History of procedure for peripheral vascular disease (Chronic) S/P urological surgery (Chronic) History of hysterectomy (Chronic) H/O hysterectomy with oophorectomy (Resolved) H/O total cystectomy (Resolved) History of appendectomy (Resolved) Family History Mother , Passed age 84 of Alzheimers No problems noted. Father , Passed age 64 of [place] No problems noted. Brother No problems noted. Brother No problems noted. Brother No problems noted. Brother No problems noted. Son Cerebral aneurysm Son Cerebral aneurysm Social History Preferred Language: Upper Sorbian Communication Ability: Effective Justice Professor Required: No Beliefs That Will Affect Care: Jewish marital status: Current Living Situation: Alone current occupational status: retired current occupation: Retired from [employer] Other Information That Helps Us Care for You: No Feels Safe at Home: Yes Safety Concerns: Feels Safe At This Time Smoking Status: Current some day smoker Hx Alcohol Use: Yes Hx Substance Use: No well-balanced diet: daily or most days caffeine: No during the past year weight has: decreased > 10 lbs Review of Systems The patient denies chest pain, palpitations, lower extremity swelling, sore throat, fevers, chills, sweats, weight change, nausea, vomiting, diarrhea , constipation, blood in urine or stool, dysuria, urinary frequency or urgency, lightheadedness, dizziness, headache, memory loss, loss of consciousness, rash, abnormal bruising or bleeding, focal weakness, numbness or tingling in arms or legs, generalized arthralgias or myalgias, back or neck pain, or night sweats. The review of systems is otherwise negative other than for that already noted above, and at least 10 systems have been reviewed. Physical Exam Vital Signs (Past 24 Hours): Last Vital Signs Temp 36.7 C 01/23/19 03:22 Pulse 71 01/23/19 03:22 Resp 16 01/23/19 03:22 BP 122/59 L 01/23/19 03:22 Pulse Ox 98 01/23/19 03:22 Physical Exam: The patient is awake, alert and oriented 3, normocephalic and atraumatic, lying in bed and in no acute distress. HEENT--PERRL, EOMI, mucous membranes and oropharynx normal. Neck--supple. No JVD. No bruits. Thyroid normal, trachea midline, no adenopathy. Heart--normal S1 and S2. No murmurs, rubs or gallops. Lungs--clear bilaterally, no respiratory distress, no accessory muscle use. Abdomen/pelvis--normal bowel sounds and soft. Nondistended. Multiple areas of pain over pelvis and hips with light pressure. Extremities--no cyanosis or clubbing. No edema. There are good distal pulses b/l. Dermatologic--normal skin turgor, normal color, no rash. Neurologic--cranial nerves II through XII grossly intact. Rheumatologic--normal range of motion. Psychiatric--normal affect. Results & Data Laboratory Results Laboratory Results WBC 2.36 K/uL (4.8-10.8) L 01/22/19 21:40 RBC 3.29 M/uL (4.2-5.4) L 01/22/19 21:40 Hgb 10.4 g/dL (12.0-16.0) L 01/22/19 21:40 Hct 30.9 % (37-47) L 01/22/19 21:40 MCV 93.9 fL (80-100) 01/22/19 21:40 MCH 31.6 pg (25-34) 01/22/19 21:40 MCHC 33.7 g/dL (32-36) 01/22/19 21:40 RDW Std Deviation 60.9 fL (36.4-46.3) H 01/22/19 21:40 RDW Coeff of [place] 18.3 % (11.5-14.5) H 01/22/19:40 Plt Count 138 K/uL (130-400) 01/22/19:40 MPV 9.7 fL (7.4-10.4) 01/22/19 21:40 Immature Gran % (Auto) 0.8 % 01/22/19 21:40 Neut % (Auto) 64.9 % 01/22/19 21:40 Lymph % (Auto) 28.0 % 01/22/19 21:40 [place] % (Auto) 5.5 % 01/22/19 21:40 Eos % (Auto) 0.8 % 01/22/19 21:40 Baso % (Auto) 0.0 % 01/22/19 21:40 Immature Gran # (Auto) 0.02 K/uL (0.00-0.02) 01/22/19 21:40 Neut # (Auto) 1.53 K/uL (1.4-6.5) 01/22/19 21:40 Lymph # (Auto) 0.66 K/uL (1.2-3.4) L 01/22/19 21:40 [place] # (Auto) 0.13 K/uL (0.11-0.59) 01/22/19 21:40 Eos # (Auto) 0.02 K/uL (0-0.5) 01/22/19 21:40 Baso # (Auto) 0.00 K/uL (0-0.2) 01/22/19 21:40 Sodium 136 mmol/L (136-145) 01/22/19 21:40 Potassium 3.1 mmol/L (3.5-5.1) L 01/22/19 21:40 Chloride 103 mmol/L (98-107) 01/22/19 21:40 Carbon Dioxide 27 mmol/L (21-32) 01/22/19 21:40 Anion Gap 6.0 (3-11) 01/22/19 21:40 BUN 18 mg/dl (7-18) 01/22/19 21:40 Creatinine 0.73 mg/dl (0.6-1.2) 01/22/19 21:40 Est Cr Clr Drug Dosing 56.2 ml/min 01/22/19 21:40 Est GFR ( Amer) 97.4 01/22/19 21:40 Est GFR (Non-Af Amer) 84.0 01/22/19 21:40 BUN/Creatinine Ratio 24.4 (10-20) H 01/22/19 21:40 Glucose 113 mg/dl (70-99) H 01/22/19 21:40 Calcium 8.5 mg/dl (8.5-10.1) 01/22/19 21:40 Total Bilirubin 1.2 mg/dl (0.2-1) H 01/22/19 21:40 AST 15 U/L (15-37) 01/22/19 21:40 ALT 27 U/L (12-78) 01/22/19 21:40 Alkaline Phosphatase 66 U/L (45-117) 01/22/19 21:40 Total Protein 5.5 gm/dl (6.4-8.2) L 01/22/19 21:40 Albumin 2.6 gm/dl (3.4-5.0) L 01/22/19 21:40 Globulin 2.9 gm/dl (2.5-4.0) 01/22/19 21:40 Albumin/Globulin Ratio 0.9 (0.9-2) 01/22/19 21:40 Lipase 36 U/L (73-393) L 01/22/19 21:40 Urine Color Yellow 01/22/19 20:03 Urine Appearance Turbid (Clear) H 01/22/19 20:03 Urine pH 8.0 (4.5-7.5) H 01/22/19 20:03 Ur Specific [place] 1.003 (1.000-1.030) 01/22/19 20:03 Urine Protein Negative (Negative) 01/22/19 20:03 Urine Glucose (UA) Negative (Negative) 01/22/19 20:03 Urine Ketones Negative (Negative) 01/22/19 20:03 Urine Blood Negative (Negative) 01/22/19 20:03 Urine Nitrite Positive (Negative) H 01/22/19 20:03 Urine Bilirubin Negative (Negative) 01/22/19 20:03 Urine Urobilinogen Negative (Negative) 01/22/19 20:03 Ur Leukocyte Esterase Trace (Negative) H 01/22/19 20:03 Urine WBC (Auto) 1-5 /hpf (0-5) 01/22/19 20:03 Urine RBC (Auto) 0-4 /hpf (0-4) 01/22/19 20:03 U Hyaline Cast (Auto) 0 /lpf (0-5) 01/22/19 20:03 U Epithel Cells (Auto) 5-10 /lpf (0-5) H 01/22/19 20:03 Urine Bacteria (Auto) 1+ (Negative) H 01/22/19 20:03 Ur Renal Epithelial Cell Not Reportable 01/22/19 20:03 Amorphous Sediment Present (None Prsent) H 01/22/19 20:03 Diagnostic Findings [place], [place] [phone] CT Scan Report Patient: MANOJ RUSS Date: 01/22/19 MR#: [id number]: [address] [place] [address] Acct ID:[id number]: Date: 1950[facility] Zip: [place] [id number] Age: 68Location: ED Sex: F Room/Bed: Att Phy: Diagnosis: BLADDER PROBLEMS- CHEMO PT Yara Phy: Ashwin Ji-CService Date: 01/22/19 Fam Phy: Ashwin Shea D.O.Interpreting Phy: Simone Nieves MD Admit Phy: Ordering Phy: Jacob Thompson M.D. cc: ~ CT OF THE ABDOMEN AND PELVIS WITH CONTRAST CLINICAL HISTORY: Abdominal pain. Bladder cancer. COMPARISON STUDY: CT of the abdomen and pelvis September 08, 2018. PET/CT July 21, 2018. TECHNIQUE: Following IV administration of 93 mL of Optiray-320, axial images of the abdomen and pelvis were obtained from the lung bases to the proximal femurs. Images were reviewed in the axial, sagittal, and coronal planes. IV contrast was administered without complication. Automated exposure control was utilized for the study. A dose lowering technique was utilized adhering to the principles of ALARA. CT DOSE: 241.42 mGy.cm FINDINGS: The heart is moderately enlarged. There has been interval development of bilateral lower lobe and right middle lobe airspace opacity. No pneumatosis, free air or portal venous gas is present. Note is made of interval development of multiple hypodense hepatic lesions since CT of September 08, 2018. The largest is a 1.9 cm segment 7 lesion. The spleen, adrenal glands and pancreas are unremarkable. There is material within the gallbladder. There is mild gallbladder wall thickening. Mild biliary ductal dilatation has developed. A right lower quadrant urostomy is noted. Moderate bilateral hydronephrosis, greater on the right, is minimally increased. No pneumatosis, free air or portal venous gas is present. There is no evidence for a bowel obstruction. There is extensive aortoiliac plaque. A few mildly enlarged left iliac lymph nodes are similar to prior exam. A destructive lesion within the left inferior pubic ramus has increased in size since CT of September 08, 2018. This measures 5.1 cm. Density of this metastasis is decreased since treatment planning CT of November 05, 2018. An additional 1.9 cm left inferior pubic ramus lesion is noted. There is associated pathologic fracture. There is a nondisplaced fracture of the left superior pubic ramus. There is been interval development of multiple skeletal lesions, including a 1.7 cm right acetabular lesion and a 1.2 cm proximal left femoral lesion. Lower abdominal and pelvic infiltration is noted. This is nonspecific. Left adrenal nodularity is noted. Ill-defined mesenteric nodules have developed. IMPRESSION: 1. Interval development of multiple small hepatic metastases and progression of skeletal metastatic disease. 2. Sludge or stones within the gallbladder with mild gallbladder wall thickening. This could be correlated with right upper quadrant pain. Interval development of biliary ductal dilatation which could be correlated with liver function tests. 3. Lower lung opacities which favor pneumonia. Atelectasis could appear similar. 4. Status post post cystectomy with right lower quadrant urostomy. Slight increase in moderate bilateral hydronephrosis, greater on the right. 5. No significant change in left inguinal lymphadenopathy. New ill-defined m esenteric nodules which may reflect metastatic disease. Nonspecific mesenteric infiltration. Electronically signed by: Simone Nieves M.D. 01/22/2019 11:39 PM Dictated: 01/22/19 231 Transcribed: 01/22/192309 Code Status & VTE Plan Code Status Full code VTE Prophylaxis Plan VTE Prophylaxis will be ordered: Yes (1) Pneumonia Laterality: bilateral Lung location: lower lobe of lung Pneumonia type: due to unspecified organism Qualified Code(s): J18.1 - Lobar pneumonia, unspecified organism
--- NOTE | 2019-01-23 06:45 | XRay Report ---
XR chest 1V portable HISTORY: 68 years-old Female hypoxia acute hypoxia COMPARISON: PET CT 07/21/2018, acute abdominal series radiographs 12/23/2017 TECHNIQUE: Portable AP view of the chest FINDINGS: Cardiomediastinal and hilar silhouettes are within normal limits. Background emphysema. Patchy airspa ce opacities are noted about the right midlung and right lung base. Mild atelectasis/scarring about t he left lung base. There is no pneumothorax, pleural effusion or overt pulmonary edema. Left subclavi an [id number] catheter distal tip terminates within the expected location of the mid SVC. Calcific ation of the thoracic aortic arch. Degenerative changes of the shoulders and spine. IMPRESSION: 1. Patchy right midlung and right lung base airspace opacities are suspicious for pneumonia or aspira tion pneumonitis. 2. Mild emphysema. The above report was generated using voice recognition software. It may contain grammatical, syntax o r spelling errors. Electronically signed by: Jordan Taylor M.D. 01/23/2019 6:44 AM
[2019-01-23 07:10] LABS: INR 1.3 (0.9-1.1); Prothrombin Time 13.3 Seconds (9.0-12.0)
[2019-01-23] MEDS: ALBUT/IPRATROP 3MG/0.5MG NEB 3 ML VIAL NEB SCH ×4 (07:29→19:35)
--- NOTE | 2019-01-23 08:04 | Family Medicine Progress Note ---
Date of Service January 23, 2019 Assessment & Plan (1) Metastatic disease: 68F with a PMHX of metastatic bladder cancer presents s/p cystectomy & RLQ urostomy presents with ostomy site tenderness. CT Abdo Pelvis showed biliary sludge, and R lung opacities and progression of metastatic disease. Pt admitted for progression of metastic disease & hypoxia 2/2 pneumonia on 01/23/19. IV Abx include Vanc and Zosyn for HCAP. Rad Onc & Oncology consulted. Will also monitor for GB symptoms. After discussing with patient , palliative care consulted. {} Pelvic Pain likely 2/2 Metastatic Cancer with Progression of Fractures from September 2018 CT results, - Destructive lesion within the left inferior pubic ramus has increased in size to 5.1 cm since 09/08/18. - New 1.9 cm left inferior pubic ramus lesion, with associated pathologic fracture. - Nondisplaced fracture of the left superior pubic ramus. - Worsening skeletal lesions: A 1.7 cm right acetabular lesion, a 1.2 cm proximal left femoral lesion. - Oncology - prognosis is poor, further chemo unlikely to benefit. - Rad. Onc - no specific sites would benefit from targetted radiation. (await final note) - Pall Care - see note, pt doesn't want one son involved. - PT / OT on board, will likely need short term placement at least given her state. c/w home Gabapentin at home dosing. PRN Tylenol for pain, well controlled at the moment. Progress pain meds as needed. {} HCAP in setting of chemotherapy. Admitted on Vanco + Zosyn started 01/23/19. Will continue. Duonebs Q4H. {} Mild gallbladder wall thickening, and mild biliary ductal dilatation. LFTs wnl, bili 1.2, Langston's sign negative, ddx includes Cholecystitis however pain likely from mets as above, will monitor for LFTs, vital signs and physical exam findings for cholecystitis. {} Peripheral vascular disease/extensive aortoiliac disease noted on CT-- c/w ASA 325mg daily. {} HLD c/w Lipitor 40mg daily. {} HTN Hold Amlodipine & Metoprolol due to hypotension. FEN: NSS + 20meq KCL @ 100mls/hr. DVT Proph: Lovenox 30mg SQ daily. CODE STATUS: DNR/DNI - spoke about this with patient at length. (2) Pneumonia: (3) Presence of urostomy: (4) DVT prophylaxis: Supervising Physician Co-Signing Physician Notes I personally examined the patient and verified all quiroz points of history and exam, discussed case, and agree with decision making with Dr Lam Feeling okay, except that she feels like she cannot quite cough up any mucus. But she is not feeling short of breath. She expresses understanding of her situation, and she is deciding whether or not she will proceed with any further treatments for her cancer. I encouraged open discussion in this regard, and she is giving all options good consideration. Vitals noted, in general she is awake alert oriented x3 pleasant no distress. HEENT normal cephalic atraumatic mucous membranes moist. Breathing is unlabored no accessory muscle use good effort. Skin shows no rashes no pallor or icterus. Pneumoniacontinue antibiotics, she appears stable Metastatic bladder cancerongoing discussions DVT prophylaxis Lovenox Subjective Pt was seen and examined at bedside. Pt states that her ostomy site is improved. Overall she states that her daily pain is tolerable. She is undergoing chemo, she is unsure what the state of her radiation oncology r eferral is. Pt states that Dr. Shea was in sooner. Pt has been thinking about stopping her chemotherapy. She isn't aware of the services that palliative care provides, in fact has never heard the word palliative before. She is tolerating PO well. No nausea or vomiting. Stating that her urine is yellow. Yesterday the urine was darker red and her urostomy was tender to palpation - both of thos e have resolved. ROS: No chest pain, no SOB, no dyspnea on exertion, no palpitations, no fevers, no chills, no nausea, no vomiting, no diarrhea, no dysuria, no rash. +chronic pain (back, hips, while ambulating). Physical Exam Vital Signs (Past 24 Hours): Last Vital Signs Temp 36.7 C 01/23/19 03:22 Pulse 78 01/23/19 07:33 Resp 16 01/23/19 07:33 BP 122/59 L 01/23/19 03:22 Pulse Ox 100 01/23/19 07:33 Constitutional: well nourished, + well hydrated and + thin; no acute distress and not ill appearing Eyes: PERRL, conjunctivae normal, anicteric sclerae ENMT: external ear and nose normal, oropharynx normal Neck: trachea midline, no thyromegaly Respiratory: normal respiratory effort, lungs clear to auscultation no respiratory distress Auscultation: no crackles and no wheezes Cardiovascular: RRR, no murmur, no edema Extremities: no calf tenderness Chest (Breasts): Chest: + vascular access device or port (chemo port on left chest) Gastrointestinal (Abdomen): Inspection/Auscultation: abdomen not distended Percussion/Palpation: + abdomen tender (tender in the Left side, no rebound tenderness, ) and abdomen soft (non tender pink, non erythematous urostomy site. ) Musculoskeletal: no cyanosis or clubbing, extremities motor strength 5/5 Skin: no rashes, warm and dry Neurologic: patellar DTR's 2+ bilat, sensation intact Psychiatric: A+Ox3, euthymic affect Resident Activity Tracking Resident Involvement: Resident Care Provided Care Provided: Adult Hospital Medicine (1) Pneumonia Laterality: bilateral Lung location: lower lobe of lung Pneumonia type: due to unspecified organism Qualified Code(s): J18.1 - Lobar pneumonia, unspecified organism
[2019-01-23] MEDS ORDERED: INFLUENZA VIRUS QUAD VACCINE 0.5 ML SYR IM ONE (08:15)
[2019-01-23] MEDS ORDERED: INFLUENZA ADMINISTRATION CHARGE ONE (08:15)
[2019-01-23] MEDS: ASPIRIN/ALUM/MAGNES/CAL CARB 325 MG TAB PO SCH (08:23)
[2019-01-23] MEDS: ENOXAPARIN INJ 30 MG/0.3 ML SYR SQ SCH (08:23)
[2019-01-23] MEDS: CHOLECALCIFEROL 1,000 UNITS TAB PO SCH (08:23)
[2019-01-23] MEDS: ATORVASTATIN 40 MG TAB PO SCH (08:24)
--- NOTE | 2019-01-23 09:01 | Pharmacy Report ---
Pharmacy Abx Initial Consult - Date of Service January 23, 2019 - Pharmacy Dosing Scope Date of Consult: 01/22/2019 Consultation requested by: Dr. Hobbs Pharmacy is consulted to initiate Vancomycin and Zosyn IV dosing therapy, order appropriate labs and adjust drug dose/frequency. - Subjective The patient is a 68 year old F admitted on 01/23/19 02:05. - Objective Height: 5 ft 1 in Weight: 49.1 kg Vital Signs (Past 12hrs): Vital Signs Temp Pulse Resp BP BP Pulse Ox 01/23/19 08:05 36.5 C 66 22 180/81 H 98 01/23/19 07:33 78 16 100 01/23/19 03:22 36.7 C 71 16 122/59 L 98 01/23/19 02:39 70 20 106/60 97 01/23/19 02:00 95 H 20 112/55 L 95 01/23/19 00:00 37 C 01/22/19 23:30 82 20 101/50 L 97 01/22/19 21:54 93 01/22/19 21:53 80 20 119/65 89 L Lab Results (24hrs): Laboratory Tests (24 Hours) 01/22/19 01/22/19 21:40 21:40 WBC 2.36 L Neut # (Auto) 1.53 Creatinine 0.73 Est Cr Clr Drug Dosing 56.2 Micro Results: 01/22/19 21:50 Blood Culture - Pending Blood 01/23/19 01:00 Blood Culture - Pending Blood 01/22/19 20:03 Urine Culture - Pending Urine,Clean Catch - Risk Factors for Resistance * Immunocompromised (history of bladder cancer, s/p cystectomy RLQ urostomy) - Assessment & Plan Assessment 68 year old F with a history of metastatic bladder cancer, s/p cystectomy and RLQ urostomy presents with nonspecific pelvic pain. CT of abdomen/pelvis showed biliary sludge and right lung opacities. Treating as HCAP per provider. Plan Vancomycin and Zosyn for treatment of HCAP. Vancomycin IV * Estimated PK Parameters: Vd 0.07 L/kg, [place] 0.05 hr-1, t1/2 ~14 hr * Loading dose: 1250 mg (25 mg/kg) * Maintenance dose: 750 mg IV (15 mg/kg) every 16 hours * Goal trough level : 15 to 20 mcg/mL * Trough/Random level ordered for 01/25/19 prior to 4th dose. Piperacillin/tazobactam * 3.375g bolus administered over 30 minutes, then 3.375 g IV extended infusion every 8 hours for CrCl greater than 20 mL/min. Pharmacy will continue to follow and will adjust dose/frequency as necessary. Thank you.
[2019-01-23] MEDS: PIPERACILLIN/TAZOBACTAM 3.375 GM in DEXTROSE 5% 100 ML IV SCH ×2 (10:20→18:22)
--- NOTE | 2019-01-23 12:56 | Radiation Oncology Progress Nt ---
Date of Service January 23, 2019 Assessment & Plan (1) Bladder cancer metastasized to bone: Ms. Russ is a 68-year-old female who presents with metastatic bladder cancer to multiple bones. More recently, she was treated for a palliative course of external beam radiation therapy to the left pelvis due to significant metastatic disease there. Currently, she states that she has had a significant pain reduction but still has some pain requiring the use of pain medications. She was admitted to the hospital due to unrelated issues and we have been asked to evaluate her for consideration of further radiation therapy. Currently, she does complain of low back pain. I did review her imaging studies with our radiology department and there is no metastatic disease which correlates with her low back pain. As such, we will recommend no further radiation therapy at this point. There is no current role for radiation therapy for this patient unless there is a new area of metastatic disease identified which she is symptomatic from. Please call us with any further questions or concerns or for further clarification. 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 November 05, 2017 finding of right sided hydronephrosis with dilated renal pelvis due to recurrent tumor. Status post radical cystectomy and anterior vaginal resection 12/10/2017 Systemic chemotherapy Bone metastasis 06/12/2018 left inferior pelvic ramus Development of pelvic pain. Status post completion of radiation therapy to the left pelvis 11/23/2018. She received 3000 cGy. 07/26/2016. Bladder biopsies revealed a noninvasive low-grade papillary urothelial carcinoma with no invasion of subepithelial connective tissues identified and no muscularis propria tissue identified. 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 Case: [id number]. Patient was treated with BCG. 06/25/2017. Repeat cystoscopy with biopsy performed. Low-grade urothelial proliferation was again noted case: [id number]. 10/08/2017. Repeat cystoscopic evaluation and biopsies performed. At the right bladder neck biopsy revealed noninvasive low-grade urothelial neoplasm. Case: [id number]. 10/14/2017. The slides were reviewed at [facility]. Recent cystoscopy demonstrated some changes in the bladder neck which were present in the past. There were now noted some papillary changes and some erythema that mimic CIS and possibly papillary tumors. There were also changes that are cystoscopically suggestive of cystitis glandularis. SYS [id number]. 11/05/2017. CT scan of the abdomen and pelvis performed. There was a mild right-sided hydronephrosis with dilated renal pelvis. These findings were similar to prior studies. There was an extrarenal pelvis on the left no collecting system or ureteral filling defects were visualized. 12/10/2017. Patient undergoes radical cystectomy and anterior vaginal wall resection at [facility].. The vaginal wall resection revealed invasive urothelial carcinoma, high-grade measuring 8.2 cm in greatest dimension. The carcinoma invaded through the lamina propria and muscularis propria and microscopically into the perivesical adipose tissue. There was lymphovascular invasion identified along with perineural invasion. The anterior vaginal wall was free of carcinoma. All examined surgical margins showed no definitive involvement by carcinoma. Distal urethral excision revealed no definitive carcinoma identified. Left pelvic lymph node dissection was performed. 3 of 4 lymph nodes were positive for metastatic carcinoma. Right pelvic lymph node dissection was performed. 6 of 6 lymph nodes were positive for metastatic carcinoma. The left distal ureteral excision was negative for carcinoma. The right distal ureteral excision showed no definitive carcinoma. The tumor size measured 8.2 x 3.6 x 1.0 cm. The final AJCC pathologic staging was pT3a pN2 02/04/2018. CT scan of the chest abdomen and pelvis performed for restaging. There was an enlarged left iliac chain lymph node seen on image 252 measuring 1.5 x 1.3 cm. No evidence of intrathoracic metastatic disease. No additional findings of concern for metastatic disease in the abdomen or pelvis. 02/14/2018. Patient started on adjuvant systemic chemotherapy consisting of cisplatin and gemcitabine. 07/02/2018. CT scan of the chest with contrast reveals no evidence of metastatic disease within the chest. CT scan of the abdomen and pelvis with contrast showed interval development of a 2.2 cm lytic lesion within the left inferior pubic ramus which was highly suggestive of skeletal metastatic disease. There was no change in a mildly enlarged left common iliac lymph node since the prior CT scan of February 04, 2018 and therefore remains indeterminate. 07/21/2018. Patient undergoes PET CT scan. This showed metastatic bony changes involving the left inferior pubic ring and possibly a posterior right fifth rib. There is metabolically active rosemarie pathology within the right inferior iliac chain with node measuring 1.[address] Shea has started adjuvant systemic chemotherapy 6 cycles were completed June 2018. She underwent a PET/CT scan on July 21, 2018. This showed evidence of metastatic bony changes involving the left inferior pubic ring and possibly the posterior right fifth rib. There was metabolically active rosemarie pathology within the right inferior iliac chain with nodes measuring up to 1.5 cm. Postoperative changes involving the abdomen secondary to prior cystectomy and right urostomy were appreciated. Patient underwent a CT scan of the abdomen and pelvis on September 08, 2018. This showed interval progression of metastatic disease. The dominant left external iliac lymph node measured 1.8 x 1.2 cm with previous measurement of 1.3 x 0.8 cm. There was increase in the dominant lytic lesion within the left inferior pubic ramus. It measured 3.8 x 2.5 cm. Also a new lytic lesion was noted within the inferior pubic ramus measuring 1 cm. Stable left hepatic lobe hypodense lesion measuring 1.1 cm favoring cyst. She completed palliative radiation therapy to the left pubic ramus on November 23, 2018. She received 3000 cGy. Interim history After completion of her treatment to the left pubic ramus she had a steady decrease in pain of the groin area. Today she gives a pain level of 4. She has some mild discomfort in the left SI area. This occurs after sitting in her reclining chair for long period of time. She gave a pain level of 3. She was admitted 01/23/2019 due to onset of pain in the area of her ostomy. She had a burning sensation that steadily increased. She had abdominal bloating and discomfort. She had chills that were associated there was some flank discomfort. She presented to the emergency room and was evaluated. She also had a cough which was minimally productive. She was evaluated with urinalysis that showed a urinary tract infection. She is also had a CT of the abdomen and pelvis which have shown increase in the skeletal metastasis as well as the liver metastasis. There is a pathologic fracture of the left pubic ramus. Her office was consulted to evaluate for any possible need for radiation or side effect from prior treatment. Physical Exam Vital Signs (Past 24 Hours): Last Vital Signs Temp 36.4 C L 01/23/19 11:23 Pulse 81 01/23/19 11:23 Resp 20 01/23/19 11:23 BP 114/67 01/23/19 11:23 Pulse Ox 94 01/23/19 11:23 Constitutional: WD/WN, vitals as above Eyes: PERRL, conjunctivae normal, anicteric sclerae ENMT: external ear and nose normal, oropharynx normal Neck: trachea midline, no thyromegaly Respiratory: Wheezing noted in right lung. Cardiovascular: RRR, no murmur, no edema Gastrointestinal (Abdomen): Ileostomy is noted and has been connected to a catheter bag. The urine is clear. There is no gross hematuria. There is no tenderness of the groin. Musculoskeletal: She has mild tenderness of the left SI area. Skin: no rashes, warm and dry + pallor Neurologic: Normal strength and coordination. Psychiatric: A+Ox3, euthymic affect Lymphatic: no cervical or axillary lymphadenopathy Results & Data Laboratory Results Laboratory Results WBC 2.36 K/uL (4.8-10.8) L 01/22/19 21:40 RBC 3.29 M/uL (4.2-5.4) L 01/22/19 21:40 Hgb 10.4 g/dL (12.0-16.0) L 01/22/19 21:40 Hct 30.9 % (37-47) L 01/22/19 21:40 MCV 93.9 fL (80-100) 01/22/19 21:40 MCH 31.6 pg (25-34) 01/22/19 21:40 MCHC 33.7 g/dL (32-36) 01/22/19 21:40 RDW Std Deviation 60.9 fL (36.4-46.3) H 01/22/19 21:40 RDW Coeff of [place] 18.3 % (11.5-14.5) H 01/22/19 21:40 Plt Count 138 K/uL (130-400) 01/22/19 21:40 MPV 9.7 fL (7.4-10.4) 01/22/19 21:40 Immature Gran % (Auto) 0.8 % 01/22/19 21:40 Neut % (Auto) 64.9 % 01/22/19 21:40 Lymph % (Auto) 28.0 % 01/22/19 21:40 [place] % (Auto) 5.5 % 01/22/19 21:40 Eos % (Auto) 0.8 % 01/22/19 21:40 Baso % (Auto) 0.0 % 03/21/19 21:40 Immature Gran # (Auto) 0.02 K/uL (0.00-0.02) 01/22/19 21:40 Neut # (Auto) 1.53 K/uL (1.4-6.5) 01/22/19 21:40 Lymph # (Auto) 0.66 K/uL (1.2-3.4) L 01/22/19 21:40 [place] # (Auto) 0.13 K/uL (0.11-0.59) 01/22/19 21:40 Eos # (Auto) 0.02 K/uL (0-0.5) 01/22/19 21:40 Baso # (Auto) 0.00 K/uL (0-0.2) 01/22/19 21:40 Sodium 136 mmol/L (136-145) 01/22/19 21:40 Potassium 3.1 mmol/L (3.5-5.1) L 01/22/19 21:40 Chloride 103 mmol/L (98-107) 01/22/19 21:40 Carbon Dioxide 27 mmol/L (21-32) 01/22/19 21:40 Anion Gap 6.0 (3-11) 01/22/19 21:40 BUN 18 mg/dl (7-18) 01/22/19 21:40 Creatinine 0.73 mg/dl (0.6-1.2) 01/22/19 21:40 Est Cr Clr Drug Dosing 56.2 ml/min 01/22/19 21:40 Est GFR ( Amer) 97.4 01/22/19 21:40 Est GFR (Non-Af Amer) 84.0 01/22/19 21:40 BUN/Creatinine Ratio 24.4 (10-20) H 01/22/19 21:40 Glucose 113 mg/dl (70-99) H 01/22/19 21:40 Calcium 8.5 mg/dl (8.5-10.1) 01/22/19 21:40 Total Bilirubin 1.2 mg/dl (0.2-1) H 01/22/19 21:40 AST 15 U/L (15-37) 01/22/19 21:40 ALT 27 U/L (12-78) 01/22/19 21:40 Alkaline Phosphatase 66 U/L (45-117) 01/22/19 21:40 Total Protein 5.5 gm/dl (6.4-8.2) L 01/22/19 21:40 Albumin 2.6 gm/dl (3.4-5.0) L 01/22/19 21:40 Globulin 2.9 gm/dl (2.5-4.0) 01/22/19 21:40 Albumin/Globulin Ratio 0.9 (0.9-2) 01/22/19 21:40 Lipase 36 U/L (73-393) L 01/22/19 21:40 Urine Color Yellow 01/22/19 20:03 Urine Appearance Turbid (Clear) H 01/22/19 20:03 Urine pH 8.0 (4.5-7.5) H 01/22/19 20:03 Ur Specific [place] 1.003 (1.000-1.030) 01/22/19 20:03 Urine Protein Negative (Negative) 01/22/19 20:03 Urine Glucose (UA) Negative (Negative) 01/22/19 20:03 Urine Ketones Negative (Negative) 01/22/19 20:03 Urine Blood Negative (Negative) 01/22/19 20:03 Urine Nitrite Positive (Negative) H 01/22/19 20:03 Urine Bilirubin Negative (Negative) 01/22/19 20:03 Urine Urobilinogen Negative (Negative) 01/22/19 20:03 Ur Leukocyte Esterase Trace (Negative) H 01/22/19 20:03 Urine WBC (Auto) 1-5 /hpf (0-5) 01/22/19 20:03 Urine RBC (Auto) 0-4 /hpf (0-4) 01/22/19 20:03 U Hyaline Cast (Auto) 0 /lpf (0-5) 01/22/19 20:03 U Epithel Cells (Auto) 5-10 /lpf (0-5) H 01/22/19 20:03 Urine Bacteria (Auto) 1+ (Negative) H 01/22/19 20:03 Ur Renal Epithelial Cell Not Reportable 01/22/19 20:03 Amorphous Sediment Present (None Prsent) H 01/22/19 20:03 Diagnostic Findings [facility], [place] [phone] CT Scan Report Patient: MANOJ RUSS Date: 01/22/19 MR#: [id number]: [id number] [facility] Acct ID:[id number]: Date: 1950[facility] Zip: [place] [id number] Age: 68Location: ED Sex: F Room/Bed: Att Phy: Diagnosis: BLADDER PROBLEMS- CHEMO PT Yara Phy: Ashwin Ji-CService Date: 01/22/19 Fam Phy: Ashwin Shea D.O.Interpreting Phy: Simone Nieves MD Admit Phy: Ordering Phy: Jacob Thompson M.D. cc: ~ CT OF THE ABDOMEN AND PELVIS WITH CONTRAST CLINICAL HISTORY: Abdominal pain. Bladder cancer. COMPARISON STUDY: CT of the abdomen and pelvis September 08, 2018. PET/CT July 21, 2018. TECHNIQUE: Following IV administration of 93 mL of Optiray-320, axial images of the abdomen and pelvis were obtained from the lung bases to the proximal femurs. Images were reviewed in the axial, sagittal, and coronal planes. IV contrast was administered without complication. Automated exposure control was utilized for the study. A dose lowering technique was utilized adhering to the principles of ALARA. CT DOSE: 241.42 mGy.cm FINDINGS: The heart is moderately enlarged. There has been interval development of bilateral lower lobe and right middle lobe airspace opacity. No pneumatosis, free air or portal venous gas is present. Note is made of interval development of multiple hypodense hepatic lesions since CT of September 08, 2018. The largest is a 1.9 cm segment 7 lesion. The spleen, adrenal glands and pancreas are unremarkable. There is material within the gallbladder. There is mild gallbladder wall thickening. Mild biliary ductal dilatation has developed. A right lower quadrant urostomy is noted. Moderate bilateral hydronephrosis, greater on the right, is minimally increased. No pneumatosis, free air or portal venous gas is present. There is no evidence for a bowel obstruction. There is extensive aortoiliac plaque. A few mildly enlarged left iliac lymph nodes are similar to prior exam. A destructive lesion within the left inferior pubic ramus has increased in size since CT of September 08, 2018. This measures 5.1 cm. Density of this metastasis is decreased since treatment planning CT of November 05, 2018. An additional 1.9 cm left inferior pubic ramus lesion is noted. There is associated pathologic fracture. There is a nondisplaced fracture of the left superior pubic ramus. There is been interval development of multiple skeletal lesions, including a 1.7 cm right acetabular lesion and a 1.2 cm proximal left femoral lesion. Lower abdominal and pelvic infiltration is noted. This is nonspecific. Left adrenal nodularity is noted. Ill-defined mesenteric nodules have developed. IMPRESSION: 1. Interval development of multiple small hepatic metastases and progression of skeletal metastatic disease. 2. Sludge or stones within the gallbladder with mild gallbladder wall thickening. This could be correlated with right upper quadrant pain. Interval development of biliary ductal dilatation which could be correlated with liver function tests. 3. Lower lung opacities which favor pneumonia. Atelectasis could appear similar. 4. Status post post cystectomy with right lower quadrant urostomy. Slight increase in moderate bilateral hydronephrosis, greater on the right. 5. No significant change in left inguinal lymphadenopathy. New ill-defined mesenteric nodules which may reflect metastatic disease. Nonspecific mesenteric infiltration. Electronically signed by: Simoen Nieves M.D. 01/22/2019 11:39 PM Dictated: 01/22/19 2310 Transcribed: 01/22/19 231
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
--- NOTE | 2019-01-23 15:25 | Palliative Care Consultation ---
Date of Consultation January 23, 2019 Assessment & Plan (1) Palliative care encounter: Patient is a 68-year-old female with a history of metastatic urothelial carcinoma-diagnosed in July 2016. Patient had done well until she had a recurrence in November 2017. Patient underwent cystectomy in December, nodes were positive at that time. Patient was found to have pelvic metastases in June 2018-received XRT, completed on 11/23/18. Patient presented to the emergency room on 01/22 having some increased pain and discomfort around her urostomy. Patient reports the urostomy area was warm to touch, she also noted increased cough for approximately 3 days prior. Patient denied any fever at home, but did report some chills. Patient's last chemo was approximately 2 weeks ago-white count on admission was 2.36 with an ANC of 1.53, hemoglobin 10.4, platelets 138. Patient also noticed some lower pelvic [id number] showed a pathological fracture of the left inferior pubic ramus as well as increased bone metastases and liver metastases. Patient also has a met identified in the fifth rib. Patient's past medical history is significant for PVD-status post stent, osteoarthritis, hypertension, HLD, osteoporosis-on Fosamax, and chemo-induced peripheral neuropathy. Patient does note pain when sitting in her recliner in the coccyx area-she states pain has been well controlled with oxycodone 5 mg tablets 1-2 tablets 3 times a day as needed. Patient denies any other areas of pain or discomfort. Patient has a productive cough-reports difficulty mobilizing secretions-will start some Mucinex. Chest x-ray showed bilateral lower lobe infiltrates as well as right middle lobe infil trate. Patient is currently being treated with IV Zosyn and IV Vanco, as well as aggressive pulmonary toilet and nebs. Patient reported that she saw Dr. Shea this a.m.-he has plans to alter some of her chemo-she states she is thinking about whether or not to continue chemo. Patient states her current chemo leaves her feeling poorly for approximately 3-4 days then she feels well for a day or 2 than its time for more chemo. Her current chemo regime is weekly infusions times 3 weeks then off 1 week. Discussed with patient at length considerations for further treatment-needs to discuss with Dr. Shea with the chemo regimen would entail, as well as its side effects and expected effectiveness. Encouraged her to have further discussion with Dr. Shea and she may want to give the new chemo try before discontinuing all further therapy. Discussed role of home health, and home nursing as well as hospice depending on patient's decisions. Patient stated she has 2 sons, both live within 5-6 miles of her. Patient stated she would want her son Yordan, to be her medical power of assistant district attorney. The patient and her older son ,Yordan, have a difficult relationship with her younger son Anson. Patient stated she did not want any medical information given to her younger son Anson. Patient's current CODE STATUS is DNR -Metastatic urothelial carcinoma-further plans per him on-encouraged patient to get more information regarding proposed chemotherapy before making any decisions regarding further care -Made referral to patient indirect sales representative to help patient complete paperwork regarding medical power of assistant district attorney for her son Yordan -Urinary tract infection-this is the first time she has had an infection since her cystectomy/urostomy done in December 2017. -Pathological fracture of the left inferior pubic ramus-pain well controlled with as needed oxycodone -PNA-would add Mucinex to help mobilize secretions, continue IV Zosyn and bank as well as aggressive pulmonary toilet with nebs -Advance care planning-Case management gave patient information regarding home health agencies as well as private duty and nursing facilities. -We will continue to follow and assist with medical decision making -Patient also offered outpatient follow-up if desired in the palliative clinic (2) Bladder cancer: Further plans per him on (3) Metastatic disease: Scan showed increase bone metastases as well as increased liver metastases-pain controlled with as needed oxycodone (4) Pathological fracture in neoplastic disease, pelvis, initial encounter for fracture: Pain well controlled with as needed oxycodone (5) Metastases to the liver: Scan show increased liver metastases (6) Pain from bone metastases: Currently well controlled on as needed oxycodone (7) Presence of urostomy: Recent dysuria-positive UA-on IV Vanco and IV Zosyn. Urine cultures pending (8) Pneumonia: Chest x-ray shows bilateral lower lobe and right middle lobe infiltrates- patient notes only occasional dysphasia. Patient on IV Zosyn and IV Vanco, would recommend adding Mucinex twice daily to help mobilize phlegm Laterality: bilateral Lung location: lower lobe of lung Pneumonia type: due to unspecified organism Qualified Code(s): J18.1 - Lobar pneumonia, unspecified organism (9) Peripheral neuropathy due to chemotherapy: Patient on Neurontin 300 mg nightly-patient had been on 300 mg 3 times daily but had some altered mental status that resulted in a fall-patient reports no significant difference in taking the Neurontin nightly versus 3 times daily- would like to continue Neurontin for her chemo-induced peripheral neuropathy. History of Present Illness Reason for Consultation: Goals of care Requesting Physician: Dr Santana Lam Attending Physician: Pedrito Altamirano DO History of Present Illness Patient is a 68-year-old female with a history of metastatic urothelial carcinoma-diagnosed in July 2016. Patient had done well until she had a recurrence in November 2017. Patient underwent cystectomy in December, nodes were positive at that time. Patient was found to have pelvic metastases in June 2018-received XRT, completed on 11/23/18. Patient presented to the emergency room on 01/22 having some increased pain and discomfort around her urostomy. Patient reports the urostomy area was warm to touch, she also noted increased cough for approximately 3 days prior. Patient denied any fever at home, but did report some chills. Patient's last chemo was approximately 2 weeks ago-white count on admission was 2.36 with an ANC of 1.53, hemoglobin 10.4, platelets 138. Patient also noticed some lower pelvic [id number] showed a pathological fracture of the left inferior pubic ramus as well as increased bone metastases and liver metastases. Patient also has a met identified in the fifth rib. Patient's past medical history is significant for PVD-status post stent, osteoarthritis, hypertension, HLD, osteoporosis-on Fosamax, and chemo-induced peripheral neuropathy. Patient does note pain when sitting in her recliner in the coccyx area-she states pain has been well controlled with oxycodone 5 mg tablets 1-2 tablets 3 times a day as needed. Patient denies any other areas of pain or discomfort. Patient has a productive cough-reports difficulty mobilizing secretions-will start some Mucinex. Chest x-ray showed bilateral lower lobe infiltrates as well as right middle lobe infiltrate. Patient is currently being treated with IV Zosyn and IV Vanco, as well as aggressive pulmonary toilet and nebs. Patient reported that she saw Dr. Shabbir this a.m.-he has plans to alter some of her chemo-she states she is thinking about whether or not to continue chemo. Patient states her current chemo leaves her feeling poorly for approximately 3-4 days then she feels well for a day or 2 than its time for more chemo. Her current chemo regime is weekly infusions times 3 weeks then off 1 week. Discussed with patient at length considerations for further treatment-needs to discuss with Dr. Shea with the chemo regimen would entail, as well as its side effects and expected effectiveness. Encouraged her to have further discussion with Dr. Shea and she may want to give the new chemo try before discontinuing all further therapy. Discussed role of home health, and home nursing as well as hospice depending on patient's decisions. Patient stated she has 2 sons, both live within 5-6 miles of her. Patient stated she would want her son Yordan, to be her medical power of assistant district attorney. The patient and her older son ,Yordan, have a difficult relationship with her younger son Anson. Patient stated she did not want any medical information given to her younger son Anson. Patient's current CODE STATUS is DNR Allergies Allergy/AdvReac Type Severity Reaction Status Date / Time No Known Allergies Allergy Verified 01/23/19 00:03 Home Medications Home Medications Medication Instructions Recorded Confirmed Type Oscal 500 mg PO BID 01/23/19 01/23/19 History alendronate [Fosamax] 70 mg PO WK 01/23/19 01/23/19 History amlodipine 5 mg PO DAILY 01/23/19 01/23/19 History aspirin, buffered 325 mg PO DAILY 01/23/19 01/23/19 History atorvastatin 40 mg PO DAILY 01/23/19 01/23/19 History cholecalciferol (vitamin D3) 1,000 unit PO DAILY 01/23/19 01/23/19 History [Vitamin D3] gabapentin 300 mg PO DIRECTED 01/23/19 01/23/19 History melatonin 1 - 3 mg PO HS PRN 01/23/19 01/23/19 History metoprolol succinate 50 mg PO BID 01/23/19 01/23/19 History oxycodone 5 mg PO DAILY PRN 01/23/19 01/23/19 History potassium chloride 10 meq PO DAILY 01/23/19 01/23/19 History vitamin E 400 unit PO DAILY 01/23/19 01/23/19 History Patient History Medical History PVD (peripheral vascular disease) (Chronic) "s/p stent placement" Hypertension (Chronic) Bladder cancer (Chronic) Gross hematuria 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 Status post cystoscopy and biopsy July 26, 2016 Reoccurrence October 08, 2017 right neck of the bladder Status post radical cystectomy December 10, 2017 Systemic chemotherapy with cisplatin and Gemzar beginning February 14, 2018 Enlarging left common iliac lymph nodes beginning February 2018 Bone metastasis left inferior pubic ramus noted July 02, 2018 Arthritis (Chronic) Hyperlipemia (Chronic) Hypertension (Chronic) Osteoporosis (Chronic) Surgical History History of procedure for peripheral vascular disease (Chronic) S/P urological surgery (Chronic) History of hysterectomy (Chronic) H/O hysterectomy with oophorectomy (Resolved) H/O total cystectomy (Resolved) History of appendectomy (Resolved) Family History Mother , Passed age 84 of Alzheimers No problems noted. Father , Passed age 64 of [place] No problems noted. Brother No problems noted. Brother No problems noted. Brother No problems noted. Brother No problems noted. Son Cerebral aneurysm Son Cerebral aneurysm Social History Communication Ability: Effective Beliefs That Will Affect Care: Moravian marital status: Current Living Situation: Alone current occupational status: retired current occupation: Retired from [employer] Other Information That Helps Us Care for You: No Feels Safe at Home: Yes Safety Concerns: Feels Safe At This Time Smoking Status: Current some day smoker Hx Alcohol Use: Yes Hx Substance Use: No well-balanced diet: daily or most days caffeine: No during the past year weight has: decreased > 10 lbs Review of Systems Constitutional: + chills and + fatigue; no fever Eyes: no problem reported Ear, Nose, Mouth, Throat: + dysphagia Episodic occasions of food or liquid going down the wrong way-intermittent, not increasing in frequency Respiratory: + cough and + sputum production Additional Comments: Positive PVD Gastrointestinal: no problem reported Dysuria with increased warmth in the area of her urostomy Musculoskeletal: no problem reported Integumentary: no problem reported Positive neuropathy hands and feet Psychiatric: no problem reported Chemo induced pancytopenia Physical Exam Vital Signs (Past 24 Hours): Last Vital Signs Temp 36.4 C L 01/23/19 11:23 Pulse 81 01/23/19 11:23 Resp 20 01/23/19 11:23 BP 114/67 01/23/19 11:23 Pulse Ox 94 01/23/19 11:23 Physical Exam: PE no acute distress, cachectic HEENT: EOMI, normal hearing, alopecia Respiratory: Positive productive cough, no increased work of breathing CV: Regular rate, no edema Abdomen: Not distended Extremities: Thin Neuro: Alert and oriented x4 Psych: Appropriate Time Spent Attending Total time spent 70 minutes with greater than 50% of the time spent at bedside discussing treatment options, goals of care, prognosis, and advanced directives.
[2019-01-23] MEDS ORDERED: OXYCODONE HCL IR 5 MG TAB (IMMEDIATE RELEASE) PO PRN (16:30)
[2019-01-23] MEDS: VANCOMYCIN HCL 750 MG in SODIUM CHLORIDE 0.9% 250 ML IV SCH (20:22)
[2019-01-23] MEDS: guaiFENesin 600 MG TABCR PO SCH (20:56)
[2019-01-24] MEDS: NSS + 20MEQ KCL 20 MEQ/1,000 ML BAG IV SCH ×3 (00:08→17:41)
[2019-01-24] MEDS: PIPERACILLIN/TAZOBACTAM 3.375 GM in DEXTROSE 5% 100 ML IV SCH ×3 (01:58→17:41)
[2019-01-24] MEDS ORDERED: HEPARIN 100 UNIT/ML 5ML FLUSH FLUSH PRN (02:33)
--- NOTE | 2019-01-24 06:44 | Family Medicine Progress Note ---
Date of Service January 24, 2019 Assessment & Plan (1) Metastatic disease: 68F with a PMHX of metastatic bladder cancer presents s/p cystectomy & RLQ urostomy presents with ostomy site tenderness. CT Abdo Pelvis showed biliary sludge, and R lung opacities and progression of metastatic disease. Pt admitted for progression of metastic disease & hypoxia 2/2 pneumonia on 01/23/19. IV Abx include Vanc and Zosyn for HCAP. Rad Onc & Oncology consulted. Will also monitor for GB symptoms. After discussing with patient , palliative care consulted. {} Pelvic Pain likely 2/2 Metastatic Cancer with Progression of Fractures from September 2018 CT results, - Destructive lesion within the left inferior pubic ramus has increased in size to 5.1 cm since 09/08/18. - New 1.9 cm left inferior pubic ramus lesion, with associated pathologic fracture. - Nondisplaced fracture of the left superior pubic ramus. - Worsening skeletal lesions: A 1.7 cm right acetabular lesion, a 1.2 cm proximal left femoral lesion. - Oncology - prognosis is poor, further chemo unlikely to benefit. - Rad. Onc - no specific sites would benefit from targetted radiation. (await final note) - Pall Care - see note, pt doesn't want one son involved. - PT / OT on board, will likely need short term placement at least given her state. c/w home Gabapentin at home dosing. PRN Tylenol for pain, well controlled at the moment. Progress pain meds as needed. {} HCAP in setting of chemotherapy. Admitted on Vanco + Zosyn started 01/23/19. Will continue. Duonebs Q4H. {} Mild gallbladder wall thickening, and mild biliary ductal dilatation. LFTs wnl, bili 1.2, Langston's sign negative, ddx includes Cholecystitis however pain likely from mets as above, will monitor for LFTs, vital signs and physical exam findings for cholecystitis. {} Peripheral vascular disease/extensive aortoiliac disease noted on CT-- c/w ASA 325mg daily. {} HLD c/w Lipitor 40mg daily. {} HTN Hold Amlodipine & Metoprolol due to hypotension. FEN: NSS + 20meq KCL @ 100mls/hr. DVT Proph: Lovenox 30mg SQ daily. CODE STATUS: DNR/DNI - spoke about this with patient at length. (2) Pneumonia: (3) Presence of urostomy: (4) DVT prophylaxis: Physical Exam Vital Signs (Past 24 Hours): Last Vital Signs Temp 37.1 C 01/23/19 23:31 Pulse 84 01/23/19 23:31 Resp 20 01/23/19 23:31 BP 118/61 01/23/19 23:31 Pulse Ox 95 01/23/19 23:31 (1) Pneumonia Laterality: bilateral Lung location: lower lobe of lung Pneumonia type: due to unspecified organism Qualified Code(s): J18.1 - Lobar pneumonia, unspecified organism
[2019-01-24 06:49] LABS: Eosinophils # (auto) 0.02 K/uL (0-0.5); Eosinophils % (auto) 0.6 %; Hematocrit (blood only) 25.1 % (37-47); Hemoglobin 8.4 g/dL (12.0-16.0); Lymphocytes # (auto) 0.51 K/uL (1.2-3.4); Lymphocytes % (auto) 16.1 %; Mean Corpuscular Hgb Conc 33.5 g/dL (32-36); Mean Corpuscular Volume 95.4 fL (80-100); Mean Platelet Volume 9.9 fL (7.4-10.4); Monocytes # (auto) 0.25 K/uL (0.11-0.59); Monocytes % (auto) 7.9 %; Neutrophils # (auto) 2.39 K/uL (1.4-6.5); Neutrophils % (auto) 75.4 %; Platelet Count 152 K/uL (130-400); RDW Coefficient of Variation 18.6 % (11.5-14.5); RDW Standard Deviation 64.3 fL (36.4-46.3); Red Blood Count 2.63 M/uL (4.2-5.4); White Blood Count 3.17 K/uL (4.8-10.8)
[2019-01-24] MEDS: ALBUT/IPRATROP 3MG/0.5MG NEB 3 ML VIAL NEB SCH ×4 (07:07→19:06)
[2019-01-24 07:28] LABS: Echinocytes 1+; Platelet Estimate Normal (Normal); Toxic Granulation 1+
[2019-01-24 07:38] LABS: Albumin Globulin Ratio 0.7 (0.9-2); Albumin Level 2.1 gm/dl (3.4-5.0); BUN Creatinine Ratio 15.2 (10-20); Bilirubin,Total 0.5 mg/dl (0.2-1); Calcium 7.6 mg/dl (8.5-10.1); Creatinine Clr Calc Pharmacy 64.6 ml/min; Est GFR (African American) 106.6; Globulin 2.8 gm/dl (2.5-4.0); Potassium 3.3 mmol/L (3.5-5.1); Total Protein 4.9 gm/dl (6.4-8.2)
[2019-01-24] MEDS: ENOXAPARIN INJ 30 MG/0.3 ML SYR SQ SCH (08:54)
[2019-01-24] MEDS: ATORVASTATIN 40 MG TAB PO SCH (08:54)
[2019-01-24] MEDS: guaiFENesin 600 MG TABCR PO SCH ×2 (08:54→21:23)
[2019-01-24] MEDS: CHOLECALCIFEROL 1,000 UNITS TAB PO SCH (08:54)
[2019-01-24] MEDS: ASPIRIN/ALUM/MAGNES/CAL CARB 325 MG TAB PO SCH (08:54)
[2019-01-24] MEDS ORDERED: POTASSIUM CHLORIDE 20 MEQ TABCR PO STA (09:33)
--- NOTE | 2019-01-24 12:00 | Progress Note ---
DATE: 01/24/2019 MEDICAL ONCOLOGY PROGRESS NOTE DIAGNOSES: 1. Pathologic fracture (pubic rami). 2. Progressing metastatic urothelial carcinoma. 3. Anorexia/weight loss. 4. Hypoalbuminemia. 5. Possible pneumonia. SUBJECTIVE: Jaqui was seen and examined at bedside. She looks much brighter mentally. She was walking in the halls with assistance this morning. Slowly picking up her p.o. intake and has really no overt complaints of pain. Basically came in to discuss possible therapeutic measures moving forward OBJECTIVE: GENERAL: Very pleasant 68-year-old female patient in no acute distress. VITAL SIGNS: Temperature 36.9, pulse 86, respiratory rate 17, blood pressure 118/62. SKIN: Without rash or lesion. HEENT: Oral mucosa without erythema or ulceration. NECK: Supple. Trachea midline. HEART: Regular rate and rhythm. LUNGS: Clear to auscultation bilaterally. ABDOMEN: Soft, nontender, nondistended. Functional urostomy. EXTREMITIES: No clubbing, cyanosis or edema. NEUROLOGIC: Grossly intact. LABORATORY DATA: WBC count 3170, hemoglobin 8.4, platelet count 152,000. Sodium 143, potassium 3.3, chloride 114, carbon dioxide 24, creatinine 0.62, BUN 9, albumin 2.1. IMPRESSION: 1. Pathologic fracture of the pubic rami. 2. Progressive metastatic urothelial carcinoma. 3. Anorexia/weight loss. 4. Hypoalbuminemia. 5. Suspected pneumonia. PLAN: I came in to talk to Jaqui this morning, specifically about chemotherapeutic options moving forward. Jaqui has not done well with traditional cytotoxic agents. Atezolizumab is a novel anti-PD-L1 agent which is FDA approved for metastatic bladder cancer. This agent is considered as immune therapy and one along several in this classification of anti-PD-L1 agents. Briefly discussed side effects, which are mainly autoimmune. Will engage in further discussion when Jaqui is discharged. Really, she needs 2-3 weeks to fully recover from previous treatment. She expressed a desire to consider quantity versus life quality issues. Jaqui asked specific questions regarding prognosis, which I believe depends on how she responds to Tecentriq. I provided no guarantees and she will take some time to consider whether this is a viable option for her. I agree with current supportive care. I appreciate radiation oncology's opinion regarding palliative radiation. We will plan on reconvening with Jaqui upon discharge. [facility]
[2019-01-24] MEDS: VANCOMYCIN HCL 750 MG in SODIUM CHLORIDE 0.9% 250 ML IV SCH (12:11)
--- NOTE | 2019-01-24 16:37 | Hospitalist Progress Note ---
Date of Service January 24, 2019 Assessment & Plan (1) Metastatic disease: (2) Pneumonia: Healthcare associated pneumonia -- She received Unasyn IV and doxycycline IV in the ED. Treat as healthcare associated and relatively immunocompromised due to ongoing chemotherapy. Continue on vancomycin IV and Zosyn IV. Improving (3) Presence of urostomy: As above (4) DVT prophylaxis: Lovenox (5) Bladder cancer metastasized to bone: Appreciate hematology/oncology inputthey have given her further options to consider, and she is considering treatment versus hospice, and will be L to continue to think and talk about this and then follow-up with him again in the office (6) Hypertension: Vitals overall acceptable, not on any current meds. Subjective Feeling better, starting to cough up more mucus, breathing is better. She is able to get around in the room some. She seems slow but relatively steady on her feet per her record. PT/OT formal input still pending. Review of Systems All systems reviewed & are unremarkable except as noted in HPI & below Physical Exam Vital Signs (Past 24 Hours): Last Vital Signs Temp 36.8 C 01/24/19 15:02 Pulse 85 01/24/19 15:34 Resp 16 01/24/19 15:34 BP 118/64 01/24/19 15:02 Pulse Ox 93 01/24/19 15:34 Physical Exam: General she is awake alert oriented x3 pleasant no distress. HEENT normocephalic atraumatic mucous members are moist. Breathing is unlabored no accessory muscle use, she is a little bit diminished base right but otherwise surprisingly clear to auscultation bilaterally without any overt rales rhonchi or wheezes good effort no accessory muscle use. Cardio is regular without rubs murmurs or gallops. Skin shows no rashes no pallor or icterus. Neuro shows cranial nerves II through XII are grossly intact gross motor and sensory intact. (1) Pneumonia Laterality: bilateral Lung location: lower lobe of lung Pneumonia type: due to unspecified organism Qualified Code(s): J18.1 - Lobar pneumonia, unspecified organism
[2019-01-25] MEDS ORDERED: AMOXICILLIN/CLAVULANATE 875MG HOME PACK PO SCH
[2019-01-25] MEDS: PIPERACILLIN/TAZOBACTAM 3.375 GM in DEXTROSE 5% 100 ML IV SCH ×3 (01:53→17:49)
[2019-01-25] MEDS: NSS + 20MEQ KCL 20 MEQ/1,000 ML BAG IV SCH ×3 (03:23→23:56)
[2019-01-25 06:31] LABS: Eosinophils # (auto) 0.03 K/uL (0-0.5); Eosinophils % (auto) 1.1 %; Hematocrit (blood only) 25.6 % (37-47); Hemoglobin 8.4 g/dL (12.0-16.0); Immature Granulocytes # (auto) 0.01 K/uL (0.00-0.02); Immature Granulocytes % (auto) 0.4 %; Lymphocytes # (auto) 0.64 K/uL (1.2-3.4); Lymphocytes % (auto) 22.7 %; Mean Corpuscular Hgb Conc 32.8 g/dL (32-36); Mean Corpuscular Volume 94.5 fL (80-100); Mean Platelet Volume 9.4 fL (7.4-10.4); Monocytes # (auto) 0.36 K/uL (0.11-0.59); Monocytes % (auto) 12.8 %; Neutrophils # (auto) 1.78 K/uL (1.4-6.5); Platelet Count 180 K/uL (130-400); RDW Coefficient of Variation 18.8 % (11.5-14.5); RDW Standard Deviation 64.2 fL (36.4-46.3); Red Blood Count 2.71 M/uL (4.2-5.4); White Blood Count 2.82 K/uL (4.8-10.8)
[2019-01-25 06:55] LABS: Acanthocytes 1+; Toxic Granulation 1+
[2019-01-25 07:08] LABS: Albumin Level 2.2 gm/dl (3.4-5.0); Calcium 7.6 mg/dl (8.5-10.1); Creatinine Clr Calc Pharmacy 67.9 ml/min; Est GFR (African American) 108.4; Est GFR (Non-African American) 93.5
[2019-01-25 07:10] LABS: Albumin Globulin Ratio 0.7 (0.9-2); Bilirubin,Total 0.5 mg/dl (0.2-1); Total Protein 5.2 gm/dl (6.4-8.2)
[2019-01-25] MEDS: ALBUT/IPRATROP 3MG/0.5MG NEB 3 ML VIAL NEB SCH (07:17)
[2019-01-25] MEDS: ASPIRIN/ALUM/MAGNES/CAL CARB 325 MG TAB PO SCH (08:02)
[2019-01-25] MEDS: ENOXAPARIN INJ 30 MG/0.3 ML SYR SQ SCH (08:02)
[2019-01-25] MEDS: CHOLECALCIFEROL 1,000 UNITS TAB PO SCH (08:03)
[2019-01-25] MEDS: guaiFENesin 600 MG TABCR PO SCH ×2 (08:03→20:59)
[2019-01-25] MEDS: ATORVASTATIN 40 MG TAB PO SCH (08:03)
[2019-01-25] MEDS ORDERED: ALBUT/IPRATROP 3MG/0.5MG NEB 3 ML VIAL NEB PRN (10:32)
[2019-01-25] MEDS ORDERED: VANCOMYCIN TROUGH ONE ×2 (17:30→19:30)
--- NOTE | 2019-01-25 17:58 | Hospitalist Progress Note ---
Date of Service January 25, 2019 Assessment & Plan (1) Metastatic disease: (2) Pneumonia: Healthcare associated pneumonia -- She received Unasyn IV and doxycycline IV in the ED. Treat as healthcare associated and relatively immunocompromised due to ongoing chemotherapy. was on vanco/zosyn --> can safely drop to doxy/augmentin to set up for outpt Rx Improving (3) Presence of urostomy: As above (4) DVT prophylaxis: Lovenox (5) Bladder cancer metastasized to bone: Appreciate hematology/oncology inputthey have given her further options to consider, and she is considering treatment versus hospice, and will be L to continue to think and talk about this and then follow-up with him again in the office. no new issues today in this regard. (6) Hypertension: Vitals overall acceptable, not on any current meds. no issues (7) Weakness: hopefully able to go home as ultimate dispo. PT/OT eval and treat. case management to work with pt/family on what can be set up to help her feel more safe. Subjective feeling better wonders if she could go home. breathing is better cough is easier. asked about weakness in multiple lines of questioning, she notes that she would not feel safe at home in her current state. Review of Systems All systems reviewed & are unremarkable except as noted in HPI & below Physical Exam Vital Signs (Past 24 Hours): Last Vital Signs Temp 36.7 C 01/25/19 15:59 Pulse 75 01/25/19 15:59 Resp 18 01/25/19 15:59 BP 116/67 01/25/19 15:59 Pulse Ox 97 01/25/19 15:59 Physical Exam: pleasant nad breathing unlabored no accessory muscles, lungs surprisingly clear overall maybe faintest of faint rales base L (despite pneumonia being right and yesterday's diminished breath sounds being right) no pallor or icterus. no focal deficits. (1) Pneumonia Laterality: bilateral Lung location: lower lobe of lung Pneumonia type: due to unspecified organism Qualified Code(s): J18.1 - Lobar pneumonia, unspecified organism
[2019-01-25] MEDS ORDERED: AMOXICILLIN/CLAVULANATE 875 MG TAB PO SCH (21:00)
[2019-01-25] MEDS: DOXYCYCLINE HYCLATE 100 MG CAP PO SCH (21:03)
[2019-01-26 06:05] LABS: Basophils # (auto) 0.01 K/uL (0-0.2); Basophils % (auto) 0.4 %; Eosinophils # (auto) 0.03 K/uL (0-0.5); Eosinophils % (auto) 1.1 %; Hemoglobin 8.7 g/dL (12.0-16.0); Immature Granulocytes # (auto) 0.02 K/uL (0.00-0.02); Immature Granulocytes % (auto) 0.7 %; Lymphocytes # (auto) 0.79 K/uL (1.2-3.4); Lymphocytes % (auto) 29.2 %; Mean Corpuscular Hgb Conc 32.2 g/dL (32-36); Mean Corpuscular Volume 94.7 fL (80-100); Mean Platelet Volume 9.5 fL (7.4-10.4); Monocytes % (auto) 22.1 %; Neutrophils # (auto) 1.26 K/uL (1.4-6.5); Neutrophils % (auto) 46.5 %; Platelet Count 198 K/uL (130-400); RDW Coefficient of Variation 18.9 % (11.5-14.5); RDW Standard Deviation 64.6 fL (36.4-46.3); Red Blood Count 2.85 M/uL (4.2-5.4); White Blood Count 2.71 K/uL (4.8-10.8)
[2019-01-26 06:32] LABS: Echinocytes 1+; Toxic Granulation 1+
[2019-01-26 06:35] LABS: Albumin Level 2.2 gm/dl (3.4-5.0); BUN Creatinine Ratio 6.7 (10-20); Calcium 7.5 mg/dl (8.5-10.1); Creatinine Clr Calc Pharmacy 67.9 ml/min; Est GFR (African American) 108.4; Est GFR (Non-African American) 93.5
[2019-01-26 06:38] LABS: Albumin Globulin Ratio 0.7 (0.9-2); Bilirubin,Total 0.4 mg/dl (0.2-1); Globulin 3.1 gm/dl (2.5-4.0); Total Protein 5.3 gm/dl (6.4-8.2)
[2019-01-26] MEDS: ATORVASTATIN 40 MG TAB PO SCH (08:48)
[2019-01-26] MEDS: CHOLECALCIFEROL 1,000 UNITS TAB PO SCH (08:48)
[2019-01-26] MEDS: DOXYCYCLINE HYCLATE 100 MG CAP PO SCH (08:48)
[2019-01-26] MEDS: guaiFENesin 600 MG TABCR PO SCH (08:48)
[2019-01-26] MEDS: ENOXAPARIN INJ 30 MG/0.3 ML SYR SQ SCH (08:49)
--- NOTE | 2019-01-26 09:38 | Progress Note ---
DATE: 01/26/2019 DIAGNOSES: 1. Pathologic fracture (pubic rami). 2. Progressive metastatic urothelial carcinoma, osseous and hepatic metastases. 3. Anorexia/weight loss. 4. Hypoalbuminemia. 5. Possible pneumonia. SUBJECTIVE: The patient was seen and examined at bedside this morning. She seems to be making steady progress towards discharge. She has no pain issues today. Has increased her appetite and is ambulating a little better with assistance. Discussed the possibility of treating her with an anti PD-L1 agent (atezolizumab) once she is stabilized medically. The patient now seems to be in favor of pursuing this option and will plan to reconvene once she is discharged. Nursing reports no overnight difficulties. OBJECTIVE: GENERAL: Very pleasant 68-year-old female patient, in no acute distress. VITAL SIGNS: Temperature 36.6, pulse 71, respiratory rate 18, blood pressure 128/72. SKIN: Without rash or lesion. HEENT: Oral mucosa without erythema or ulceration. HEART: Regular rate and rhythm. LUNGS: Clear to auscultation bilaterally. ABDOMEN: Functional ileostomy. Bowel sounds are normal. EXTREMITIES: No clubbing, cyanosis or edema. NEUROLOGIC: Grossly intact. LABORATORY DATA: WBC count 2710, hemoglobin 8.7, platelet count 198,000, absolute neutrophil count 1260. Sodium 141, potassium 4.0, chloride 113, carbon dioxide 23, creatinine 0.59, BUN 4. IMPRESSION: 1. Pathologic fracture of the pubic rami. 2. Progressive metastatic urothelial carcinoma. 3. Anorexia/weight loss. 4. Hypoalbuminemia. 5. Pneumonia. PLAN: With each day, the patient seems to be making slow but steady progress. After contemplation, she is amenable to exploring the possibility of receiving atezolizumab, which is a novel PD-L1 agent FDA approved for metastatic bladder cancer. We will make arrangements for her to meet with chemotherapy nurses to further discuss side effects and treatment schedule. Again, I described to additional time to allow the patient stabilize and improve her appetite before commencing further treatment. We will continue to follow her periodically during hospital stay. Appreciate your assistance in the care of this very pleasant lady.
[2019-01-26] MEDS: NSS + 20MEQ KCL 20 MEQ/1,000 ML BAG IV SCH (10:53)
[2019-01-26] MEDS ORDERED: ASPIRIN/ALUM/MAGNES/CAL CARB 325 MG TAB PO SCH (11:00)
[2019-01-26 11:31] VITALS: TEMP 98.1; O2SAT 97
[2019-01-26 13:47] VITALS: BP 116/67; PULSE 71
--- NOTE | 2019-01-26 15:14 | Discharge Summary ---
Date of Service January 26, 2019 Admission HPI Per Admitting Provider The patient is a 68-year-old female with a past medical history including bladder cancer, status post cystectomy with right lower quadrant urostomy, who presents with progressive generalized weakness, dyspnea on exertion, abnormal sensation in her lower abdomen and pelvis, and difficulty with ambulation secondary to pelvic bone pain. When she called her doctor's office, and described the abnormal sensation in her pelvis, she was advised to come to the emergency department for assessment. Admission Exam Per Admitting Provider The patient is awake, alert and oriented 3, normocephalic and atraumatic, lying in bed and in no acute distress. HEENT--PERRL, EOMI, mucous membranes and oropharynx normal. Neck--supple. No JVD. No bruits. Thyroid normal, trachea midline, no adenopathy. Heart--normal S1 and S2. No murmurs, rubs or gallops. Lungs--clear bilaterally, no respiratory distress, no accessory muscle use. Abdomen/pelvis--normal bowel sounds and soft. Nondistended. Multiple areas of pain over pelvis and hips with light pressure. Extremities--no cyanosis or clubbing. No edema. There are good distal pulses b/l. Dermatologic--normal skin turgor, normal color, no rash. Neurologic--cranial nerves II through XII grossly intact. Rheumatologic--normal range of motion. Psychiatric--normal affect. Principal Diagnosis Pneumonia, metastatic bladder cancer Discharge Exam Constitutional WD/WN, vitals as above + thin; no acute distress and not ill appearing ENMT external ear and nose normal, oropharynx normal Respiratory normal respiratory effort, lungs clear to auscultation Cardiovascular RRR, no murmur, no edema Chest (Breasts) Chest: + vascular access device or port (chemo port on left chest) Gastrointestinal (Abdomen) Inspection/Auscultation: abdomen not distended Percussion/Palpation: abdomen soft (non tender pink, non erythematous urostomy site. ) Psychiatric A+Ox3, euthymic affect Discharge Data Allergies Allergy/AdvReac Type Severity Reaction Status Date / Time No Known Allergies Allergy Verified 01/23/19 00:03 Consultations 01/23/19 00:44 ED Decision to Admit Stat 01/23/19 03:05 Consult Case Management - Discharge Planning Routine Consult Hematology Routine 01/23/19 08:33 Consult Radiation Oncology Routine 01/23/19 11:01 Consult Palliative Care Routine 01/23/19 14:53 Consult Patient Services Routine Ordered Studies 01/22/19 21:19 CT abd pelvis IV con only Stat Hospital Course (1) Metastatic disease: Ms. Gold is a 68 year old female with a PMHX of metastatic bladder cancer s/p cystectomy & RLQ urostomy who presented with pelvic pain and dyspnea on exertion. CT Abdo/Pelvis showed biliary sludge, and R lung opacities and progression of metastatic disease. Pt admitted for progression of metastatic disease & hypoxia 2/2 pneumonia on 01/23/19. IV Abx include Vanc and Zosyn for HCAP. Pelvic Pain likely 2/2 Metastatic Cancer with Progression of Fractures from September 2018 CT results, - Destructive lesion within the left inferior pubic ramus has increased in size to 5.1 cm since 09/08/18. - New 1.9 cm left inferior pubic ramus lesion, with associated pathologic fracture. - Nondisplaced fracture of the left superior pubic ramus. - Worsening skeletal lesions: A 1.7 cm right acetabular lesion, a 1.2 cm proximal left femoral lesion. - Oncology - prognosis is poor. She will schedule a f/u with Dr. Shea in 2 weeks to discuss potential treatment with atezolizumab - Rad. Onc - no specific sites would benefit from targeted radiation. - seen by palliative care c/w home Gabapentin and oxycodone - pain well controlled with this regimen, in fact, pt did not require any oxycodone for 3-4 days while in the hospital HCAP in setting of chemotherapy - Admitted on Vanco + Zosyn started 01/23/19. - discharged on 6 more days of doxycycline + azithromycin - saturating well on room air Mild gallbladder wall thickening, and mild biliary ductal dilatation. - LFTs wnl, including normal bilirubin, and Langston's sign negative, - outpt f/u HTN - Amlodipine & Metoprolol held due hypotension in hospital - restart metoprolol on discharge - w/hold parameters of systolic BP <100. Hold amlodipine until f/u with PCP. Home health will check BP (2) Pneumonia: (3) Presence of urostomy: (4) DVT prophylaxis: Total Time Total Time Spent Total Time Spent (In Minutes): 30 Discharge Plan Discharge Items Patient Disposition: Home - Home Health Services Reason For Visit: PNEUMONIA, HYPOXIA Discharge Diagnosis: Pneumonia Discharge Goals: Decrease discomfort, Improve disease control and Improve function Activity: Resume your previous activity Non-emergency contact: Primary Care Provider Call non-emergency contact if: you have any medication questions, your pain is not controlled, your pain is concerning for you and your temperature is above 101 Follow-up/Referrals: Ashwin Ji [Primary Care Provider] - 02/04/19 2:00 pm (You are scheduled for a follow up appointment with you PCP on February 04 at 2pm. Please call their office at [phone] if unable to keep this appointment. ) Diet: Regular Addtl Provider Instructions: Ms. Gold, bill were admitted to [facility] due to shortness of breath and pain in your pelvic region. 1) Shortness of breath -> you were found to have a pneumonia, an infection in your lungs. This was treated with IV antibiotics. We will be discharging you home with 6 more days of antibiotics to take. We are also arranging a follow up appointment with your primary care provider. Taking antibiotics can cause stomach upset and diarrhea - we recommend taking probiotics to help build up the good bacteria in your gut. If you continue to have persistent, frequent, watery diarrhea, please let your doctor know. We recommend drinking plenty of fluids (including gatorade) to keep up with the loss of fluid in the diarrhea and help maintain normal electrolyte levels. 2) Bladder cancer -> you were found to have metastatic lesions on your pelvic bones, which are contributing to your chronic pain. Dr. Shea will be following up with you in clinic to discuss the plan going forward. 3) Pain -> please continue taking your oxycodone as needed for the pain 4) Low blood pressure -> your blood pressure was on the lower side while you were in the hospital. Please stop taking your amlodipine, and continue taking your metoprolol. Your primary care doctor can tell you, at your follow up appt, whether you need to start taking the amlodipine again. If the top number on your blood pressure reading is less than 100, do not take your metoprolol either. If you have worsening pain, fever, chills, trouble breathing, please call your doctor. Prescriptions: New doxycycline hyclate 100 mg Capsule 100 mg PO BID 6 Days Qty: 12 RF: 0 amoxicillin-pot clavulanate [Augmentin] 875-125 mg tablet 1 tab PO BID 6 Days Qty: 12 RF: 0 Continued metoprolol succinate 50 mg Tablet Extended Release 24 Hr 50 mg PO BID RF: 0 potassium chloride 10 mEq Tablet Extended Release 10 meq PO DAILY RF: 0 aspirin, buffered 325 mg Tablet 325 mg PO DAILY RF: 0 atorvastatin 40 mg Tablet 40 mg PO DAILY RF: 0 cholecalciferol (vitamin D3) [Vitamin D3] 1,000 unit Capsule 1,000 unit PO DAILY RF: 0 vitamin E 400 unit Capsule 400 unit PO DAILY RF: 0 Oscal 500 mg PO BID RF: 0 alendronate [Fosamax] 70 mg Tablet 70 mg PO WK RF: 0 melatonin 1 mg Tablet 1 - 3 mg PO HS PRN (Reason: Sleep) RF: 0 oxycodone 5 mg Tablet 5 mg PO DAILY PRN (Reason: Pain) RF: 0 gabapentin 300 mg Capsule 300 mg PO DIRECTED RF: 0 Discontinued amlodipine 5 mg Tablet 5 mg PO DAILY RF: 0 Stand-Alone Forms: [facility] [place] Discharge Orders: Discharge Order (Routine); Ordered 01/26/19 Ordered By: Jadiel Perkins Admission Data Admit Date/Time: 01/23/19 02:05 Attending Provider: Abdelrahman Ambrosio Admit Provider: Elkin Hobbs Primary Care Provider: Ashwin Ji Other Providers: Elkin Hobbs ; Ashwin Shea V ; Ke Gustafson ; Megan Rasheed Service: Medical Other Interventions: Discharge Summary Assessment (RN) Last Done: 01/26/19 15:13 DC Date/Time DO NOT enter until pt leaves facility: 01/26/19 16:15 Supervising Physician Co-Signing Physician Notes Attending attestation Pt seen and examined in concert with Dr. Perkins. In agreement with the documented findings as noted in the resident documentation with any exceptions or additions as noted here. Resting in bed with mild left posterior hip discomfort. On examination, S1/S2 nl RRR no MCG. CTAB. Abd NT/ND BS+ve Metastatic bladder cancer with pelvic pain on exertion - heme/onc and palliative consultation - continue gabapentin - enocurage use of oxycodone pre-emptively, but also limit use where possible HCAP - complete course of doxycycline and azithromycin Else see resident documentation as noted. Resident Activity Tracking Resident Involvement: Resident Care Provided Care Provided: Adult Hospital Medicine
--- NOTE | 2019-01-26 16:23 | Palliative Care Progress Note ---
Date of Service January 26, 2019 Assessment & Plan (1) Palliative care encounter: Patient is a 68-year-old female with a history of metastatic urothelial carcinoma-diagnosed in July 2016. Patient had done well until she had a recurrence in November 2017. Patient underwent cystectomy in December, nodes were positive at that time. Patient was found to have pelvic metastases in June 2018-received XRT, completed on 11/23/18. Patient presented to the emergency room on 01/22 having some increased pain and discomfort around her urostomy. Patient reports the urostomy area was warm to touch, she also noted increased cough for approximately 3 days prior. Patient denied any fever at home, but did report some chills. Patient's last chemo was approximately 2 weeks ago-white count on admission was 2.36 with an ANC of 1.53, hemoglobin 10.4, platelets 138. Patient also noticed some lower pelvic [id number] showed a pathological fracture of the left inferior pubic ramus as well as increased bone metastases and liver metastases. Patient also has a met identified in the fifth rib. Patient's past medical history is significant for PVD-status post stent, osteoarthritis, hypertension, HLD, osteoporosis-on Fosamax, and chemo-induced peripheral neuropathy. Patient does note pain when sitting in her recliner in the coccyx area-she states pain has been well controlled with prn oxycodone 5 mg tablet -patient has not required any as needed pain meds since 01/23.. Patient denies any other areas of pain or discomfort. Patient has a productive cough-reports difficulty mobilizing secretions-will start some Mucinex. Chest x-ray showed bilateral lower lobe infiltrates as well as right middle lobe infiltrate. Patient was treated with IV antibiotics-is now transition to p.o. doxycycline. Patient reported that she saw Dr. Shea this a.m.-he has plans to offer more chemo-she states she is thinking about giving it a try-after recovery period of 1-2 weeks. Patient stated she would want her son Yordan, to be her medical power of finance attorney. The patient and her older son ,Yordan, have a difficult relationship with her younger son Anson. Patient stated she did not want any medical information given to her younger son Anson. Patient's current CODE STATUS is DNR -Metastatic urothelial carcinoma-further chemo per oncology -Made referral to patient hostess party sales representative to help patient complete paperwork regarding medical power of finance attorney for her son Yordan -Urinary tract infection-this is the first time she has had an infection since her cystectomy/urostomy done in December 2017-symptoms resolving, now on p.o. doxycycline. -Pathological fracture of the left inferior pubic ramus-pain well controlled with as needed oxycodone-last dose was on 01/23 -PNA-would add Mucinex to help mobilize secretions, continue doxycycline as well as aggressive pulmonary toilet with nebs -Advance care planning-Case management gave patient information regarding home health agencies as well as private duty and nursing facilities. -We will continue to follow and assist with medical decision making -Patient also offered outpatient follow-up if desired in the palliative clinic (2) Bladder cancer: Further chemo per [id number] with oncology in 2 weeks (3) Metastatic disease: Scan showed increase bone metastases as well as increased liver metastases-pain controlled with as needed oxycodone (4) Pathological fracture in neoplastic disease, pelvis, initial encounter for fracture: Pain well controlled with as needed oxycodone-last dose on 01/23 (5) Metastases to the liver: Scan show increased liver metastases (6) Pain from bone metastases: Currently well controlled on as needed oxycodone (7) Presence of urostomy: Recent dysuria-positive urine culture for E. coli-now on p.o. doxycycline (8) Pneumonia: Chest x-ray shows bilateral lower lobe and right middle lobe infiltrates- patient notes only occasional dysphasia. Continue Mucinex as needed (9) Peripheral neuropathy due to chemotherapy: Patient on Neurontin 300 mg nightly-patient had been on 300 mg 3 times daily but had some altered mental status that resulted in a fall-patient reports no significant difference in taking the Neurontin nightly versus 3 times daily- would like to continue Neurontin for her chemo-induced peripheral neuropathy. Subjective Patient seen and examined, no acute distress. Patient much more energetic and bright on exam today. Collaborated with Dr. Shabbir RAYA: Patient denies fever, chills, chest pain, increased shortness of breath, or dysuria. Patient now on p.o. doxycycline for E. coli UTI. Physical Exam Vital Signs (Past 24 Hours): Last Vital Signs Temp 36.7 C 01/26/19 15:13 Pulse 71 01/26/19 15:13 Resp 20 03/25/19 15:13 BP 116/67 01/26/19 15:13 Pulse Ox 97 01/26/19 15:13 Physical Exam: PE: No acute distress HEENT: EOMI, normal hearing Respiratory: Unlabored, clear breath sounds Cardiovascular: Regular rate, no edema Abdomen: Soft, nontender Neuro: Brighter, alert and oriented x4 Time Spent Attending Total time spent 25 minutes with greater than 50% of the time spent at bedside discussing patient's goals of care as well as encouraging advance care planning. Patient may follow-up in palliative clinic as an outpatient if desired. (1) Pneumonia Laterality: bilateral Lung location: lower lobe of lung Pneumonia type: due to unspecified organism Qualified Code(s): J18.1 - Lobar pneumonia, unspecified organism
== END 2019-01-26 16:15 | disposition home health service (06) | DRG 542 ==
LOC: ED 19:16 → 4E 01-23 02:05 → SUATTDRO 01-23 02:05 → 4E 01-23 02:48

== ENCOUNTER 2019-03-25 14:35 | Inpatient (IN) ==
[2019-03-25] MEDS ORDERED: SODIUM CHLORIDE 0.9% 500 ML IV SCH (15:00)
[2019-03-25 15:27] LABS: Basophils # (auto) 0.01 K/uL (0-0.2); Basophils % (auto) 0.1 %; Eosinophils # (auto) 0.01 K/uL (0-0.5); Eosinophils % (auto) 0.1 %; Hematocrit (blood only) 33.8 % (37-47); Hemoglobin 11.3 g/dL (12.0-16.0); Immature Granulocytes # (auto) 0.01 K/uL (0.00-0.02); Immature Granulocytes % (auto) 0.1 %; Lymphocytes # (auto) 0.68 K/uL (1.2-3.4); Lymphocytes % (auto) 8.1 %; Mean Corpuscular Hgb Conc 33.4 g/dL (32-36); Mean Corpuscular Volume 89.4 fL (80-100); Mean Platelet Volume 9.2 fL (7.4-10.4); Monocytes % (auto) 9.5 %; Neutrophils # (auto) 6.92 K/uL (1.4-6.5); Neutrophils % (auto) 82.1 %; Platelet Count 292 K/uL (130-400); RDW Standard Deviation 56.1 fL (36.4-46.3); Red Blood Count 3.78 M/uL (4.2-5.4); White Blood Count 8.43 K/uL (4.8-10.8)
[2019-03-25 15:48] LABS: Albumin Level 2.4 gm/dl (3.4-5.0); BUN Creatinine Ratio 36.4 (10-20); Calcium 11.8 mg/dl (8.5-10.1); Creatinine Clr Calc Pharmacy 36.1 ml/min; Est GFR (African American) 58.7; Est GFR (Non-African American) 50.6; Magnesium 1.9 mg/dl (1.8-2.4); Potassium 4.5 mmol/L (3.5-5.1)
[2019-03-25 15:50] LABS: Albumin Globulin Ratio 0.7 (0.9-2); Bilirubin,Total 0.5 mg/dl (0.2-1); Globulin 3.3 gm/dl (2.5-4.0); Total Protein 5.7 gm/dl (6.4-8.2)
--- NOTE | 2019-03-25 16:13 | XRay Report ---
XR chest 1V portable CLINICAL HISTORY: 68 years-old Female presenting with eval for pna, shortness of breath. TECHNIQUE: Portable upright AP view of the chest was obtained. COMPARISON: 01/23/2019. FINDINGS: Left subclavian Mediport terminates at the superior cavoatrial junction. Atherosclerosis of aortic ar ch. Cardiac silhouette normal in size. Mildly low lung volumes. Interval clearance of the prior right mid to basilar lung opacity. Trace opacity at the left lung base. No large pneumothorax or pleural e ffusion. Degenerative changes of the thoracic spine. Upper abdomen normal. IMPRESSION: 1. Resolution of prior right lower lung infiltrate. 2. Minimal left basilar atelectasis suspected. An infectious infiltrate or aspiration are considered less likely. Electronically signed by: Sudheer Everett M.D. 03/25/2019 4:11 PM
--- NOTE | 2019-03-25 17:33 | History & Physical Report ---
Date of Service March 25, 2019 Assessment & Plan (1) Hypercalcemia: - Corrected calcium level was 12.6 in setting of metastatic bladder cancer with nilda metastasis and calcium supplementation at home. - Received NS 500 cc bolus; will continue NS at 100 cc/hr. - Will give Zometa 4 mg IV x 1 dose. - Repeat ICal level at 9 pm tonight to evaluate for improvement; monitor Calcium level qAM. (2) Bladder cancer metastasized to bone: - Follows with oncology; was recently started on another agent due to progression of disease. - Has left inferior pubic ramus lesion, right acetabular lesion and left proximal femoral lesion noted on most recent imaging. - Has been evaluated by rad/onc in the past; no specific area was identified that would benefit from radiation therapy. - Will consult oncology for evaluation. - Will also consult palliative care for evaluation -- pt. has been evaluated by Dr. Rasheed in the past. - Continue Oxycodone 5-10 mg q6h for cancer related pain. (3) Metastases to the liver: - Treatment as noted above. - LFTs are elevated, will monitor. (4) Antineoplastic chemotherapy induced anemia: - Monitor H/H daily, transfuse for hgb <7. (5) Elevated LFTs: - LFTs are trending up overall, will monitor qAM. - During previous admission, imaging showed mild gallbladder wall thickening and mild biliary duct dilatation. - Due to lack of symptoms, will hold further work up and evaluation. - Holding home statin. (6) Weakness: - Likely related to metastatic bladder cancer and chemotherapy. - May require PT/OT evaluation. 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 (8) Hyperlipidemia LDL goal <70: - Holding statin due to elevated LFTs. (9) Hypertension: - Continue Metoprolol 50 mg BID. - Previously on Amlodipine, now discontinued. (10) PVD (peripheral vascular disease): - Continue aspirin 325 mg daily, holding statin as noted above. (11) Constipation: - Opioid induced, no BM in 2 days. - Start Senokot S BID with Miralax daily scheduled. (12) DVT prophylaxis: - SCDs; Lovenox 40 mg subQ q24hr as pt. is high risk. Dispo: Med/surg with telemetry for monitoring/treatment of hypercalcemia. Observation status, discharge over next 24 hours if pain is well controlled and lab work is improved. History of Present Illness Chief Complaint: Abnormal Lab Work Primary Care Provider: Ashwin Ji Mrs. Gold is a 68 year old with metastatic bladder cancer, neuropathy, HTN, HLD, PVD who presented to the ER with abnormal lab work. She was admitted 01/23-01/26 for progression of metastatic bladder cancer and HCAP. Palliative care and oncology were both consulted; code status was DNR/DNI but pt. requested to continue to proceed with chemotherapy. Pt. follows with Dr. Shea and has routine lab work as an outpatient prior to chemotherapy sessions. Corrected calcium level was 12.3 on 03/24/19; she received a call from her oncologist and was directed to come to the hospital for admission. Pt. feels well overall with exception of myalgias/bone pain in setting of metastatic disease. She has ge neralized pain in the groin area, left hip, low back, and abdomen. Pain is worse with movement, stable at rest. Has nausea at home, denies vomiting. Has not had a BM in 2 days; normally has a BM every 2-3 days. Has been taking Oxycodone 10 mg in the morning and mid afternoon and 5 mg at bedtime for cancer related pain. Denies fever/chills, chest pain, SOB, URI symptoms, LE edema, foul smelling uri ne. ER course: Corrected calcium level was 12.6. Pt. also had increasing LFTs on lab work. CXR showed resolution of previous opacities, no evidence of acute PNA. She received a 500 cc bolus. Will be admitted for further treatment/evaluation of hypercalcemia. Allergies Allergy/AdvReac Type Severity Reaction Status Date / Time No Known Allergies Allergy Verified 01/23/19 00:03 Home Medications Home Medications Medication Instructions Recorded Confirmed Type aspirin, buffered 325 mg PO QAM 01/23/19 03/25/19 History atorvastatin 40 mg PO QPM 01/23/19 03/25/19 History cholecalciferol (vitamin D3) 1,000 unit PO QAM 01/23/19 03/25/19 History [Vitamin D3] gabapentin 300 mg PO QPM 01/23/19 03/25/19 History oxycodone 5 - 10 mg PO TID PRN 01/23/19 03/25/19 History potassium chloride 10 meq PO QAM 01/23/19 03/25/19 History vitamin E 400 unit PO QAM 01/23/19 03/25/19 History alendronate 70 mg PO WK 03/25/19 03/25/19 History calcium carbonate [Calcium 500] 500 mg PO BID 03/25/19 03/25/19 History metoprolol tartrate 50 mg PO BID 03/25/19 03/25/19 History ondansetron 8 mg TRANSLINGUAL Q8H PRN 03/25/19 03/25/19 History Past Med/Surg History Medical History PVD (peripheral vascular disease) (Chronic) "s/p stent placement" Hypertension (Chronic) Bladder cancer (Chronic) Gross hematuria 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 Status post cystoscopy and biopsy July 26, 2016 Reoccurrence October 08, 2017 right neck of the bladder Status post radical cystectomy December 10, 2017 Systemic chemotherapy with cisplatin and Gemzar beginning February 14, 2018 Enlarging left common iliac lymph nodes beginning February 2018 Bone metastasis left inferior pubic ramus noted July 02, 2018 Arthritis (Chronic) Hyperlipemia (Chronic) Hypertension (Chronic) Osteoporosis (Chronic) Surgical History History of procedure for peripheral vascular disease (Chronic) S/P urological surgery (Chronic) History of hysterectomy (Chronic) H/O hysterectomy with oophorectomy (Resolved) H/O total cystectomy (Resolved) History of appendectomy (Resolved) Family History Mother , Passed age 84 of Alzheimers No problems noted. Father , Passed age 64 of [place] No problems noted. Brother No problems noted. Brother No problems noted. Brother No problems noted. Brother No problems noted. 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 Required: No Beliefs That Will Affect Care: Sikhism Sikhism Beliefs: Denominational marital status: Current Living Situation: Alone current occupational status: retired current occupation: Retired from [employer] Other Information That Helps Us Care for You: No Feels Safe at Home: Yes Safety Concerns: Feels Safe At This Time Smoking Status: Former smoker Tobacco Type: cigarettes Cigarettes Per Day: Down to 10, avg was 1pack/day Do You Dip or Chew Tobacco: No Second Hand Exposure: No Tobacco Cessation Education Requested by Patient: No Hx Alcohol Use: Yes Alcohol type: wine Hx Substance Use: No caffeine: No during the past year weight has: decreased > 10 lbs Review of Systems Review of Systems: All systems reviewed & are unremarkable except as noted in HPI & below Constitutional: + fatigue and + weakness; no fever, no chills and no anorexia Ear, Nose, Mouth, Throat: no nasal congestion, no nasal discharge, no post nasal drip and no sore throat Respiratory: no cough, no dyspnea, no dyspnea on exertion and no wheezing Cardiovascular: no chest pain, no palpitations, no lightheadedness, no syncope and no edema Gastrointestinal: + abdominal pain (Chronic ) and + constipation; no nausea, no vomiting, no diarrhea/loose stools and no melena Genitourinary: no difficulty urinating Musculoskeletal: + back pain, + joint pain, + myalgia and + body aches Integumentary: no non-healing lesions Neurologic: no tingling, no paresthesia and no tremor(s) Allergy / Immunological: no rash Physical Exam Physical Exam: General: Chronically ill appearing female, in no acute distress. HEENT: NC/AT; PERRLA with EOMI; [place] conjunctiva, MMM. No erythema of posterior pharynx Neck: Supple and nontender Cardiac: RRR w/o murmurs, gallops or rubs Lungs: CTA bilaterally; No rhonchi, wheezing, or rales Abdomen: Bowel normoactive X 4; Nontender to palpation Extremities: Warm. No edema present Neuro: No focal weakness Skin: No rash Results & Data Vital Signs (Past 12 Hours) Vital Signs Temp Pulse Pulse Resp BP BP Pulse Ox 03/25/19 15:51 89 L 03/25/19 15:44 72 18 106/61 91 03/25/19 14:38 36.6 C 78 16 93/56 L 94 Laboratory Results 03/25/19 03/25/19 Range/Units 15:12 15:12 WBC 8.43 (4.8-10.8) K/uL RBC 3.78 L (4.2-5.4) M/uL Hgb 11.3 L (12.0-16.0) g/dL Hct 33.8 L (37-47) % MCV 89.4 (80-100) fL MCH 29.9 (25-34) pg MCHC 33.4 (32-36) g/dL RDW Std Deviation 56.1 H (36.4-46.3) fL RDW Coeff of [place] 17.0 H (11.5-14.5) % Plt Count 292 (130-400) K/uL MPV 9.2 (7.4-10.4) fL Immature Gran % (Auto) 0.1 % Neut % (Auto) 82.1 % Lymph % (Auto) 8.1 % [place] % (Auto) 9.5 % Eos % (Auto) 0.1 % Baso % (Auto) 0.1 % Immature Gran # (Auto) 0.01 (0.00-0.02) K/uL Neut # (Auto) 6.92 H (1.4-6.5) K/uL Lymph # (Auto) 0.68 L (1.2-3.4) K/uL [place] # (Auto) 0.80 H (0.11-0.59) K/uL Eos # (Auto) 0.01 (0-0.5) K/uL Baso # (Auto) 0.01 (0-0.2) K/uL Sodium 134 L (136-145) mmol/L Potassium 4.5 (3.5-5.1) mmol/L Chloride 102 (98-107) mmol/L Carbon Dioxide 30 (21-32) mmol/L Anion Gap 2.0 L (3-11) BUN 40 H (7-18) mg/dl Creatinine 1.11 (0.6-1.2) mg/dl Est Cr Clr Drug Dosing 36.1 ml/min Est GFR ( Amer) 58.7 Est GFR (Non-Af Amer) 50.6 BUN/Creatinine Ratio 36.4 H (10-20) Glucose 96 (70-99) mg/dl Calcium 11.8 H (8.5-10.1) mg/dl Magnesium 1.9 (1.8-2.4) mg/dl Total Bilirubin 0.5 (0.2-1) mg/dl AST 135 H (15-37) U/L ALT 128 H (12-78) U/L Alkaline Phosphatase 247 H (45-117) U/L Total Protein 5.7 L (6.4-8.2) gm/dl Albumin 2.4 L (3.4-5.0) gm/dl Globulin 3.3 (2.5-4.0) gm/dl Albumin/Globulin Ratio 0.7 L (0.9-2) Lipase 80 (73-393) U/L Diagnostic Findings XR chest 1V portable CLINICAL HISTORY: 68 years-old Female presenting with eval for pna, shortness of breath. TECHNIQUE: Portable upright AP view of the chest was obtained. COMPARISON: 01/23/2019. FINDINGS: Left subclavian Mediport terminates at the superior cavoatrial junction. Atherosclerosis of aortic arch. Cardiac silhouette normal in size. Mildly low lung volumes. Interval clearance of the prior right mid to basilar lung opacity. Trace opacity at the left lung base. No large pneumothorax or pleural effusion. Degenerative changes of the thoracic spine. Upper abdomen normal. IMPRESSION: 1. Resolution of prior right lower lung infiltrate. 2. Minimal left basilar atelectasis suspected. An infectious infiltrate or aspiration are considered less likely. Code Status & VTE Plan Code Status DNR/DNI Supervising Physician Co-Signing Physician Notes Attending Admit Note & Attestation: Pt seen/examined, chart reviewed, care plan d/w TRACY Hernandez. I agree w/ the quiroz components of her admission documentation. Unfortunate 68yo female with history of stage 4 progressive bladder ca - known liver & bone mets - presenting with hypercalcemia. Pt reports extreme fatigue, abdominal discomforts and constipation at home along with various areas of bony pain. PMH, PSH, allergies, meds, sochx, famhx, ros -- reviewed VSS, transient low o2 sat of 89% gen - cacechtic, NAD, a/o x 3 mouth - MM dry heart - RRR s1 s2 lungs - CTA b/l abd - soft mild distension BS+ liver edge palpable 2-3 finger breaths below costal margin ext - 1+ edema b/l, fingernail clubbing Ca (total) - 11.7 AST, ALT, alk phos - all elevated, and worse than previous A/P: 1. progressive stage 4 bladder ca 2. mets to liver and bone 3. hypercalcemia -- serial calcium levels, hydration, consider IV bisphosphanate; stop calcium/vit D supplements 4. abnormal LFTs likely due to #2 5. cachexia/mod-severe protein calorie malnutrition 6. edema - 2nd to hypoalbuminemia? DVT? other ? check dopplers r/o DVT strongly agree w/ palliative care consultation Devendra Peters MD
[2019-03-25] MEDS ORDERED: OXYCODONE HCL IR 5 MG TAB (IMMEDIATE RELEASE) PO PRN (18:19)
[2019-03-25] MEDS ORDERED: ONDANSETRON INJ 2 MG/ML 2 ML VIAL IV PRN (18:19)
[2019-03-25] MEDS ORDERED: ZOLEDRONIC ACID 4 MG in 0.9 % SODIUM CHLORIDE 100 ML IV ONE (18:28)
[2019-03-25] MEDS: SODIUM CHLORIDE 0.9% 1000ML 1,000 ML IV SCH (18:36)
[2019-03-25 19:11] LABS: INR 1.2 (0.9-1.1); Partial Thromboplastin Ratio 1.1; Partial Thromboplastin Time 28.7 Seconds (21.0-31.0); Prothrombin Time 11.8 Seconds (9.0-12.0)
[2019-03-25] MEDS: METOPROLOL TARTRATE 50 MG TAB PO SCH (20:21)
[2019-03-25] MEDS: GABAPENTIN 300 MG CAP PO SCH (20:21)
[2019-03-25] MEDS: DOCUSATE SODIUM/SENNA 50/8.6MG TAB PO SCH (20:21)
[2019-03-25] MEDS: POLYETHYLENE (MIRALAX) 17 GM PACK PO SCH (20:22)
[2019-03-25] MEDS: ENOXAPARIN INJ 40 MG/0.4 ML SYR SQ SCH (20:22)
--- NOTE | 2019-03-25 20:53 | Emergency Department Note ---
Entered by Quinn Ramírez acting as a scribe for Krunal Hurd MD History of Present Illness General Chief complaint: Abnormal Labs/Diagnostic Testing Stated complaint: ABNORMAL BLOOD WORK,SENT BY DR TATE Source: patient History of Present Illness Onset (ago): day(s) 1 Location: head (global) Pain Consistency: + other (feels persistently run-down) Quality: + other (hypercalcemia) Associated symptoms: + other (nausea without vomiting; denies lightheadness or fevers); no chest pain The patient is a 68 year old female with bladder cancer with metastases to the groin who presents to the Emergency Room after referral from her oncologist for blood work drawn yesterday showing hypercalcemia. The patient reports that today she was told by Dr. Shea to immediately come to the ER. She states that she feels run-down but does not feel lightheaded or had any fevers. She reports nausea without vomiting. She states that at baseline she is occasionally c onfused, and this is unchanged in the past couple days. She also occasionally experiences fluttering in the chest, most recently a few days ago. She reports left-sided groin pain for the past 2 weeks. She states her cancer has spread to her groin on that side. This pain is unchanged. She denies diarrhea or chest pain. She is unsure if her calcium has been elevated in the past. Home Medications Home Medications Medication Instructions Recorded Confirmed Type aspirin, buffered 325 mg PO QAM 01/23/19 03/25/19 History atorvastatin 40 mg PO QPM 01/23/19 03/25/19 History cholecalciferol (vitamin D3) 1,000 unit PO QAM 01/23/19 03/25/19 History [Vitamin D3] gabapentin 300 mg PO QPM 01/23/19 03/25/19 History oxycodone 5 - 10 mg PO TID PRN 01/23/19 03/25/19 History potassium chloride 10 meq PO QAM 01/23/19 03/25/19 History vitamin E 400 unit PO QAM 01/23/19 03/25/19 History alendronate 70 mg PO WK 03/25/19 03/25/19 History calcium carbonate [Calcium 500] 500 mg PO BID 03/25/19 03/25/19 History metoprolol tartrate 50 mg PO BID 03/25/19 03/25/19 History ondansetron 8 mg TRANSLINGUAL Q8H PRN 03/25/19 03/25/19 History Allergies Allergy/AdvReac Type Severity Reaction Status Date / Time No Known Allergies Allergy Verified 01/23/19 00:03 Past Med/Surg History Medical History PVD (peripheral vascular disease) (Chronic) "s/p stent placement" Hypertension (Chronic) Bladder cancer (Chronic) Gross hematuria 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 Status post cystoscopy and biopsy July 26, 2016 Reoccurrence October 08, 2017 right neck of the bladder Status post radical cystectomy December 10, 2017 Systemic chemotherapy with cisplatin and Gemzar beginning February 14, 2018 Enlarging left common iliac lymph nodes beginning February 2018 Bone metastasis left inferior pubic ramus noted July 02, 2018 Arthritis (Chronic) Hyperlipemia (Chronic) Hypertension (Chronic) Osteoporosis (Chronic) Surgical History History of procedure for peripheral vascular disease (Chronic) S/P urological surgery (Chronic) History of hysterectomy (Chronic) H/O hysterectomy with oophorectomy (Resolved) H/O total cystectomy (Resolved) History of appendectomy (Resolved) Family History Mother , Passed age 84 of Alzheimers No problems noted. Father , Passed age 64 of NC No problems noted. Brother No problems noted. Brother No problems noted. Brother No problems noted. Brother No problems noted. Son Cerebral aneurysm Son Cerebral aneurysm Social History Preferred Language: Latvian Communication Ability: Effective Visual Impairment: Limited Hearing Ability: Hard of Hearing Ground [employer] Lines Person Required: No Beliefs That Will Affect Care: Cheondoism Cheondoism Beliefs: Confucianism marital status: Current Living Situation: Alone current occupational status: retired current occupation: Retired from [employer] Other Information That Helps Us Care for You: No Feels Safe at Home: Yes Safety Concerns: Feels Safe At This Time Smoking Status: Former smoker Tobacco Type: cigarettes Cigarettes Per Day: Down to 10, avg was 1pack/day Do You Dip or Chew Tobacco: No Second Hand Exposure: No Tobacco Cessation Education Requested by Patient: No Hx Alcohol Use: Yes Alcohol type: wine Hx Substance Use: No caffeine: No during the past year weight has: decreased > 10 lbs Review of Systems See HPI for pertinent positives & negatives. and A total of 10 systems reviewed and were otherwise negative Physical Exam Vital Signs Vital Signs - 24 hr 03/25/19 14:38 03/25/19 15:44 03/25/19 15:51 Temperature 36.6 C Temperature Source Oral Sepsis Recent Fever Within 48 Hours No Sepsis New/Unexplained Change in Mental Status No Sepsis Action Taken by Nursing No Action Required Pulse Rate 78 Pulse Rate [Right Finger] 72 Pulse Rhythm [Right Finger] Regular Pulse Strength [Right Finger] Normal Respiratory Rate 16 18 Respiratory Effort / Characteristics Non-Labored Respiratory Depth Normal Respiratory Pattern Regular Blood Pressure 93/56 L Blood Pressure [Right Arm] 106/61 Blood Pressure Mean 68 Blood Pressure Mean [Right Arm] 76 Blood Pressure Position [Right Arm] Lying Pulse Oximetry 94 91 89 L Oxygen Delivery Method Room Air Room Air Room Air Constitutional: Vital signs reviewed. Eyes: Pupils are equal round reactive to light. Conjunctiva are noninjected. ENT: Pharynx is clear without erythema or exudate. Mucous membranes are moist. Neck supple without meningeal signs. Respiratory: Clear to auscultation bilaterally. Breath sounds are equal bilaterally. Cardiovascular: Regular rate and rhythm. No rubs or gallops. GI: Soft, nondistended. LLQ tenderness to palpation without guarding. Ostomy bag in mid-abdomen. Bowel sounds are present. Musculoskeletal: Mild bilateral lower extremity edema. No lower extremity tenderness. Integumentary: No cyanosis. Neurological: The patient is awake and alert. No focal deficits. Psychiatric: Normal affect. Course 1443: The patient was evaluated in room A2. A complete history and physical examination were performed. 1553: I consulted Dr. Werner [facility] Hospitalist. The patient will be reevaluated for hospitalization. 1554: The patients blood pressure is now 106/61. I updated her on test results. She denies any shortness of breath. Administered Medications Enoxaparin Sodium (Lovenox) 40 mg SQ Q24H SUSHMA Stop: 04/24/19 19:59 Last Admin: 03/25/19 20:22 Dose: 40 mg Documented by: [id number] Gabapentin (Neurontin) 300 mg PO QPM SUSHMA Stop: 04/24/19 20:59 Last Admin: 03/25/19 20:21 Dose: 300 mg Documented by: [id number] Sodium Chloride (Nss 1000ml) 1,000 mls @ 100 mls/hr IV .Q10H SUSHMA Stop: 03/26/19 23:14 Last Admin: 03/25/19 18:36 Dose: 100 mls/hr Documented by: [id number] Metoprolol Tartrate (Lopressor) 50 mg PO BID SUSHMA Stop: 04/24/19 20:59 Last Admin: 03/25/19 20:21 Dose: 50 mg Documented by: [id number] Polyethylene Glycol (Miralax Powder Packet) 17 gm PO DAILY SUSHMA Stop: 04/24/19 18:18 Last Admin: 03/25/19 20:22 Dose: 17 gm Documented by: [id number] Senna/Docusate Sodium (Senokot S) 1 tab PO BID SUSHMA Stop: 04/24/19 20:59 Last Admin: 03/25/19 20:21 Dose: 1 tab Documented by: [id number] Discontinued Medications Sodium Chloride (Nss) 500 mls @ 999 mls/hr IV .Q31M SUSHMA Stop: 03/25/19 15:30 Last Infusion: 03/25/19 15:41 Dose: 0 mls/hr Documented by: [id number] Admin: 03/25/19 15:12 Dose: 999 mls/hr Documented by: [id number] Zoledronic Acid 4 mg/ Sodium (Chloride) 105 mls @ 210 mls/hr IV ONE ONE Stop: 03/25/19 18:57 Last Admin: 03/25/19 20:21 Dose: 210 mls/hr Documented by: [id number] Medical Decision Making Differential Diagnosis Differential diagnosis: hypercalcemia, metastatic cancer, dehydration, hypotension, metabolic derangement Medical Records Attestation: I reviewed the patient's medical records. I did perform a limited focused review of portions of the patient's old chart on the electronic medical record. The patient had blood work yesterday showing calcium of 11.7. On March 10 her calcium was 10.6. Home Medications Current Medication List: was personally reviewed by me Laboratory Data Attestation: I reviewed the patient's lab results. Result diagrams: 03/25/19 15:12 03/25/19 15:12 Lab Results 03/25/19 03/25/19 03/25/19 Range/Units 15:12 15:12 15:13 WBC 8.43 (4.8-10.8) K/uL RBC 3.78 L (4.2-5.4) M/uL Hgb 11.3 L (12.0-16.0) g/dL Hct 33.8 L (37-47) % MCV 89.4 (80-100) fL MCH 29.9 (25-34) pg MCHC 33.4 (32-36) g/dL RDW Std Deviation 56.1 H (36.4-46.3) fL RDW Coeff of Stanford 17.0 H (11.5-14.5) % Plt Count 292 (130-400) K/uL MPV 9.2 (7.4-10.4) fL Immature Gran % (Auto) 0.1 % Neut % (Auto) 82.1 % Lymph % (Auto) 8.1 % [place] % (Auto) 9.5 % Eos % (Auto) 0.1 % Baso % (Auto) 0.1 % Immature Gran # (Auto) 0.01 (0.00-0.02) K/uL Neut # (Auto) 6.92 H (1.4-6.5) K/uL Lymph # (Auto) 0.68 L (1.2-3.4) K/uL [place] # (Auto) 0.80 H (0.11-0.59) K/uL Eos # (Auto) 0.01 (0-0.5) K/uL Baso # (Auto) 0.01 (0-0.2) K/uL PT 11.8 (9.0-12.0) Seconds INR 1.2 H (0.9-1.1) APTT 28.7 (21.0-31.0) Seconds PTT Ratio 1.1 Sodium 134 L (136-145) mmol/L Potassium 4.5 (3.5-5.1) mmol/L Chloride 102 (98-107) mmol/L Carbon Dioxide 30 (21-32) mmol/L Anion Gap 2.0 L (3-11) BUN 40 H (7-18) mg/dl Creatinine 1.11 (0.6-1.2) mg/dl Est Cr Clr Drug Dosing 36.1 ml/min Est GFR ( Amer) 58.7 Est GFR (Non-Af Amer) 50.6 BUN/Creatinine Ratio 36.4 H (10-20) Glucose 96 (70-99) mg/dl Calcium 11.8 H (8.5-10.1) mg/dl Magnesium 1.9 (1.8-2.4) mg/dl Total Bilirubin 0.5 (0.2-1) mg/dl AST 135 H (15-37) U/L ALT 128 H (12-78) U/L Alkaline Phosphatase 247 H (45-117) U/L Total Protein 5.7 L (6.4-8.2) gm/dl Albumin 2.4 L (3.4-5.0) gm/dl Globulin 3.3 (2.5-4.0) gm/dl Albumin/Globulin Ratio 0.7 L (0.9-2) Lipase 80 (73-393) U/L Imaging Data Radiologist's Impression: Radiology results as stated below per my review and the radiologist's interpretation: XR chest 1V portable CLINICAL HISTORY: 68 years-old Female presenting with eval for pna, shortness of breath. TECHNIQUE: Portable upright AP view of the chest was obtained. COMPARISON: 01/23/2019. FINDINGS: Left subclavian Mediport terminates at the superior cavoatrial junction. Atherosclerosis of aortic arch. Cardiac silhouette normal in size. Mildly low lung volumes. Interval clearance of the prior right mid to basilar lung opacity. Trace opacity at the left lung base. No large pneumothorax or pleural effusion. Degenerative changes of the thoracic spine. Upper abdomen normal. IMPRESSION: 1. Resolution of prior right lower lung infiltrate. 2. Minimal left basilar atelectasis suspected. An infectious infiltrate or aspiration are considered less likely. Electronically signed by: Sudheer Everett M.D. 03/25/2019 4:11 PM ECG Data Attestation: I personally reviewed and interpreted this ECG as follows: Indication: other (hypercalcemia) Rate (beats per minute): 74 Rhythm: normal sinus Findings: + other (QTc interval is 401) and + T-wave inversion (inferior and lateral) Blood Pressure Blood Pressure Findings: Normal blood pressure Blood Pressure Disposition: did not require urgent referral MDM Narrative I did evaluate the patient as noted above. The patient was sent here for hypercalcemia. The patient's oncologist had called when the physicians here earlier and stated he would like to have her admitted for treatment. IV access was established. The patient was placed on a continuous dispatcher motor vehicle. I did order and personally review the patient's 12-lead EKG as described above. She has no shortening of her QT interval. There are some T wave inversions. Patient was noted to have an O2 saturation of 89% by the nurse. She denies any shortness of breath. I did order and personally reviewed the images of the patient's chest x-ray as described above. This shows resolution of her previous infiltrate. I did order and review the patient's blood work as noted in the electronic medical record. She is anemic. Her calcium is 8.7. The patient was initially slightly hypotensive. I did treat her with normal saline IV. She had improvement of her blood pressure. I did discuss case with the hospitalist and case management associate. Impression & Plan Hypercalcemia Discharge Plan Visit Data *Final* Discharge Date/Time: 03/25/19 17:47 Chief Complaint: Abnormal Labs/Diagnostic Testing Stated Complaint: ABNORMAL BLOOD WORK,SENT BY DR TATE ED Provider: Krunal Hurd Discharge Problem: Hypercalcemia Patient Disposition: Admitted As Inpatient Discharge Instructions Interventions: ED Discharge Assessment Last Done: 03/25/19 17:47 The gracie's documentation has been prepared under my direction and personally reviewed by me in its entirety. I confirm that the note above accurately reflects all work, treatment, procedures, and medical decision making performed by me.
--- NOTE | 2019-03-25 21:28 | Ultrasound Report ---
US venous doppler LE BI CLINICAL HISTORY: Leg swelling COMPARISON STUDY: February 2019 FINDINGS: Real-time and color flow Doppler imaging were performed. Flow was seen within the femoral, popliteal and calf veins with no intraluminal thrombus demonstrated. The saphenous vein is patent. IMPRESSION: No evidence of lower extremity DVT. Electronically signed by: Mendez Guardado M.D. 03/25/2019 9:26 PM
[2019-03-26 03:17] LABS: Basophils # (auto) 0.01 K/uL (0-0.2); Basophils % (auto) 0.2 %; Eosinophils # (auto) 0.04 K/uL (0-0.5); Eosinophils % (auto) 0.6 %; Hematocrit (blood only) 32.6 % (37-47); Hemoglobin 10.8 g/dL (12.0-16.0); Lymphocytes # (auto) 0.64 K/uL (1.2-3.4); Lymphocytes % (auto) 9.8 %; Mean Corpuscular Hgb Conc 33.1 g/dL (32-36); Mean Corpuscular Volume 89.3 fL (80-100); Mean Platelet Volume 8.9 fL (7.4-10.4); Monocytes # (auto) 0.66 K/uL (0.11-0.59); Monocytes % (auto) 10.1 %; Neutrophils # (auto) 5.21 K/uL (1.4-6.5); Neutrophils % (auto) 79.3 %; Platelet Count 238 K/uL (130-400); RDW Coefficient of Variation 16.8 % (11.5-14.5); RDW Standard Deviation 55.4 fL (36.4-46.3); Red Blood Count 3.65 M/uL (4.2-5.4); White Blood Count 6.56 K/uL (4.8-10.8)
[2019-03-26 03:36] LABS: Alanine Aminotransferase 120 U/L (12-78); Albumin Level 2.1 gm/dl (3.4-5.0); Aspartate Aminotransferase 131 U/L (15-37); BUN Creatinine Ratio 37.8 (10-20); Blood Urea Nitrogen 35 mg/dl (7-18); Calcium 10.7 mg/dl (8.5-10.1); Carbon Dioxide 27 mmol/L (21-32); Chloride 106 mmol/L (98-107); Creatinine Clr Calc Pharmacy 43.5 ml/min; Est GFR (African American) 73.6; Est GFR (Non-African American) 63.5; Glucose 77 mg/dl (70-99); Magnesium 1.8 mg/dl (1.8-2.4); Potassium 4.3 mmol/L (3.5-5.1); Sodium 136 mmol/L (136-145)
[2019-03-26 03:41] LABS: Albumin Globulin Ratio 0.7 (0.9-2); Alkaline Phosphatase 222 U/L (45-117); Bilirubin,Total 0.5 mg/dl (0.2-1); Globulin 2.9 gm/dl (2.5-4.0); Troponin I < 0.015 ng/ml (0-0.045)
[2019-03-26] MEDS: SODIUM CHLORIDE 0.9% 1000ML 1,000 ML IV SCH ×2 (04:40→13:53)
[2019-03-26] MEDS: CHOLECALCIFEROL 1,000 UNITS TAB PO SCH (08:42)
[2019-03-26] MEDS: ASPIRIN/ALUM/MAGNES/CAL CARB 325 MG TAB PO SCH (08:42)
[2019-03-26] MEDS: DOCUSATE SODIUM/SENNA 50/8.6MG TAB PO SCH ×2 (08:42→21:23)
[2019-03-26] MEDS: POLYETHYLENE (MIRALAX) 17 GM PACK PO SCH (08:43)
[2019-03-26] MEDS: METOPROLOL TARTRATE 50 MG TAB PO SCH (08:43)
--- NOTE | 2019-03-26 10:09 | Hospitalist Progress Note ---
Date of Service March 26, 2019 Assessment & Plan (1) Hypercalcemia: - Corrected calcium level 12.6 at admission in setting of metastatic bladder cancer with nilda metastasis and calcium supplementation at home. - Level is improved to 11.7; monitor qAM. - Continue NS at 100 cc/hr; did receive Zometa 4 mg IV x 1 dose on 03/25/19. - Continue telemetry monitoring. - Will need to discontinue all calcium supplementation following discharge. (2) Bladder cancer metastasized to bone: - Follows with oncology; was recently started on another agent due to progression of disease. - Has left inferior pubic ramus lesion, right acetabular lesion and left proximal femoral lesion noted on most recent imaging. - Has been evaluated by rad/onc in the past; no specific area identified that would benefit from radiation therapy. - Consult oncology and palliative care for evaluation. - Continue Oxycodone 5-10 mg q6h for cancer related pain. (3) Metastases to the liver: - Treatment as noted above. - LFTs are elevated above baseline, may indicate progression of liver tana. (4) Antineoplastic chemotherapy induced anemia: - Monitor H/H daily, transfuse for hgb <7. (5) Elevated LFTs: - LFTs are trending up overall; monitor qAM. - During previous admission, imaging showed mild gallbladder wall thickening and mild biliary duct dilatation. - Due to lack of symptoms, will hold further work up and evaluation. - Holding home statin. (6) Weakness: - Likely related to metastatic bladder cancer and chemotherapy. - PT/OT evaluation ordered. 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 (8) Hyperlipidemia LDL goal <70: - Holding statin due to elevated LFTs. (9) Hypertension: - Hold Metoprolol 50 mg BID in setting of hypotension -- SBP in the 90's this morning. - Previously on Amlodipine, now discontinued. - Receiving IV fluids at 100 cc/hr. (10) PVD (peripheral vascular disease): - Continue aspirin 325 mg daily, holding statin as noted above. (11) Constipation: - Senokot S BID with Miralax daily scheduled. (12) Lower extremity edema: - May be related to hypoalbuminemia vs. other. - Doppler of bilat LE was negative for DVT. - Monitor daily -- no indication for diuresis in setting of dehydration and hypotension. (13) Malnutrition, calorie: - In setting of stage IV bladder cancer, poor PO intake. - Encourage PO intake with supplements as tolerated. (14) DVT prophylaxis: - SCDs; Lovenox 40 mg subQ q24hr (is high risk) Dispo: Med/surg with telemetry for monitoring/treatment of hypercalcemia. Discharge pending PT/OT evaluation and improvement in hypotension. Supervising Physician Co-Signing Physician Notes Attending Note & Attestation: Chart reviewed, care plan d/w PA Ligia Hernandez. I agree w/ the quiroz components of her documentation. 68yo female with history of stage 4 progressive bladder ca - known liver & bone mets. Hypercalcemic at time of admission - s/p fluids and zometa overnight. Calcium improved today. Dopplers of legs neg for DVT. Appreciate palliative care consult. Very poor prognosis. Devendra Peters MD Subjective Pt. is weak/tired today. Calcium level improving with IV fluids and Zometa. Palliative and oncology consulted. Was hypotensive this morning --- held home Metoprolol. Review of Systems Review of Systems: All systems reviewed & are unremarkable except as noted in HPI & below Constitutional: + fatigue, + weakness and + anorexia; no fever and no chills Respiratory: no cough, no dyspnea, no dyspnea on exertion and no wheezing Cardiovascular: + edema; no chest pain, no palpitations, no lightheadedness and no syncope Gastrointestinal: no abdominal pain, no nausea, no vomiting, no constipation and no diarrhea/loose stools Genitourinary: no difficulty urinating Musculoskeletal: + back pain, + joint pain, + myalgia and + body aches Integumentary: no non-healing lesions Allergy / Immunological: no rash Physical Exam Physical Exam: General: Chronically ill appearing female. HEENT: [place]/AT; PERRLA with EOMI; [place] conjunctiva, MMM. No erythema of posterior pharynx Neck: Supple and nontender Cardiac: RRR Lungs: CTA bilaterally; No rhonchi, wheezing, or rales Abdomen: Bowel normoactive X 4; Nontender to palpation Extremities: Warm. +1 bilat LE edema. Neuro: No focal weakness Skin: No rash Results & Data Vital Signs (Past 12 Hours) Vital Signs Temp Pulse Pulse Resp BP BP Pulse Ox 03/26/19 08:00 67 03/26/19 07:27 37.1 C 68 20 95/56 L 90 03/26/19 04:00 36.7 C 94 H 18 94/61 L 94 03/25/19 23:44 36.9 C 63 63 18 100/64 92 Laboratory Results 03/26/19 03/26/19 03/25/19 Range/Units 03:04 03:04 22:08 WBC 6.56 (4.8-10.8) K/uL RBC 3.65 L (4.2-5.4) M/uL Hgb 10.8 L (12.0-16.0) g/dL Hct 32.6 L (37-47) % MCV 89.3 (80-100) fL MCH 29.6 (25-34) pg MCHC 33.1 (32-36) g/dL RDW Std Deviation 55.4 H (36.4-46.3) fL RDW Coeff of Stanford 16.8 H (11.5-14.5) % Plt Count 238 (130-400) K/uL MPV 8.9 (7.4-10.4) fL Immature Gran % (Auto) 0.0 % Neut % (Auto) 79.3 % Lymph % (Auto) 9.8 % [place] % (Auto) 10.1 % Eos % (Auto) 0.6 % Baso % (Auto) 0.2 % Immature Gran # (Auto) 0.00 (0.00-0.02) K/uL Neut # (Auto) 5.21 (1.4-6.5) K/uL Lymph # (Auto) 0.64 L (1.2-3.4) K/uL [place] # (Auto) 0.66 H (0.11-0.59) K/uL Eos # (Auto) 0.04 (0-0.5) K/uL Baso # (Auto) 0.01 (0-0.2) K/uL PT (9.0-12.0) Seconds INR (0.9-1.1) APTT (21.0-31.0) Seconds PTT Ratio Sodium 136 (136-145) mmol/L Potassium 4.3 (3.5-5.1) mmol/L Chloride 106 (98-107) mmol/L Carbon Dioxide 27 (21-32) mmol/L Anion Gap 3.0 (3-11) BUN 35 H (7-18) mg/dl Creatinine 0.92 (0.6-1.2) mg/dl Est Cr Clr Drug Dosing 43.5 ml/min Est GFR ( Amer) 73.6 Est GFR (Non-Af Amer) 63.5 BUN/Creatinine Ratio 37.8 H (10-20) Glucose 77 (70-99) mg/dl Calcium 10.7 H (8.5-10.1) mg/dl Ionized Calcium (1.12-1.32) mmol/L Magnesium 1.8 (1.8-2.4) mg/dl Total Bilirubin 0.5 (0.2-1) mg/dl AST 131 H (15-37) U/L ALT 120 H (12-78) U/L Alkaline Phosphatase 222 H (45-117) U/L Troponin I < 0.015 < 0.015 (0-0.045) ng/ml Total Protein 5.0 L (6.4-8.2) gm/dl Albumin 2.1 L (3.4-5.0) gm/dl Globulin 2.9 (2.5-4.0) gm/dl Albumin/Globulin Ratio 0.7 L (0.9-2) Lipase (73-393) U/L 03/25/19 03/25/19 03/25/19 Range/Units 22:08 15:13 15:12 WBC 8.43 (4.8-10.8) K/uL RBC 3.78 L (4.2-5.4) M/uL Hgb 11.3 L (12.0-16.0) g/dL Hct 33.8 L (37-47) % MCV 89.4 (80-100) fL MCH 29.9 (25-34) pg MCHC 33.4 (32-36) g/dL RDW Std Deviation 56.1 H (36.4-46.3) fL RDW Coeff of [place] 17.0 H (11.5-14.5) % Plt Count 292 (130-400) K/uL MPV 9.2 (7.4-10.4) fL Immature Gran % (Auto) 0.1 % Neut % (Auto) 82.1 % Lymph % (Auto) 8.1 % [place] % (Auto) 9.5 % Eos % (Auto) 0.1 % Baso % (Auto) 0.1 % Immature Gran # (Auto) 0.01 (0.00-0.02) K/uL Neut # (Auto) 6.92 H (1.4-6.5) K/uL Lymph # (Auto) 0.68 L (1.2-3.4) K/uL [place] # (Auto) 0.80 H (0.11-0.59) K/uL Eos # (Auto) 0.01 (0-0.5) K/uL Baso # (Auto) 0.01 (0-0.2) K/uL PT 11.8 (9.0-12.0) Seconds INR 1.2 H (0.9-1.1) APTT 28.7 (21.0-31.0) Seconds PTT Ratio 1.1 Sodium (136-145) mmol/L Potassium (3.5-5.1) mmol/L Chloride (98-107) mmol/L Carbon Dioxide (21-32) mmol/L Anion Gap (3-11) BUN (7-18) mg/dl Creatinine (0.6-1.2) mg/dl Est Cr Clr Drug Dosing ml/min Est GFR ( Amer) Est GFR (Non-Af Amer) BUN/Creatinine Ratio (10-20) Glucose (70-99) mg/dl Calcium (8.5-10.1) mg/dl Ionized Calcium 1.62 H* (1.12-1.32) mmol/L Magnesium (1.8-2.4) mg/dl Total Bilirubin (0.2-1) mg/dl AST (15-37) U/L ALT (12-78) U/L Alkaline Phosphatase (45-117) U/L Troponin I (0-0.045) ng/ml Total Protein (6.4-8.2) gm/dl Albumin (3.4-5.0) gm/dl Globulin (2.5-4.0) gm/dl Albumin/Globulin Ratio (0.9-2) Lipase (73-393) U/L 03/25/19 Range/Units 15:12 WBC (4.8-10.8) K/uL RBC (4.2-5.4) M/uL Hgb (12.0-16.0) g/dL Hct (37-47) % MCV (80-100) fL MCH (25-34) pg MCHC (32-36) g/dL RDW Std Deviation (36.4-46.3) fL RDW Coeff of [place] (11.5-14.5) % Plt Count (130-400) K/uL MPV (7.4-10.4) fL Immature Gran % (Auto) % Neut % (Auto) % Lymph % (Auto) % [place] % (Auto) % Eos % (Auto) % Baso % (Auto) % Immature Gran # (Auto) (0.00-0.02) K/uL Neut # (Auto) (1.4-6.5) K/uL Lymph # (Auto) (1.2-3.4) K/uL [place] # (Auto) (0.11-0.59) K/uL Eos # (Auto) (0-0.5) K/uL Baso # (Auto) (0-0.2) K/uL PT (9.0-12.0) Seconds INR (0.9-1.1) APTT (21.0-31.0) Seconds PTT Ratio Sodium 134 L (136-145) mmol/L Potassium 4.5 (3.5-5.1) mmol/L Chloride 102 (98-107) mmol/L Carbon Dioxide 30 (21-32) mmol/L Anion Gap 2.0 L (3-11) BUN 40 H (7-18) mg/dl Creatinine 1.11 (0.6-1.2) mg/dl Est Cr Clr Drug Dosing 36.1 ml/min Est GFR ( Amer) 58.7 Est GFR (Non-Af Amer) 50.6 BUN/Creatinine Ratio 36.4 H (10-20) Glucose 96 (70-99) mg/dl Calcium 11.8 H (8.5-10.1) mg/dl Ionized Calcium (1.12-1.32) mmol/L Magnesium 1.9 (1.8-2.4) mg/dl Total Bilirubin 0.5 (0.2-1) mg/dl AST 135 H (15-37) U/L ALT 128 H (12-78) U/L Alkaline Phosphatase 247 H (45-117) U/L Troponin I (0-0.045) ng/ml Total Protein 5.7 L (6.4-8.2) gm/dl Albumin 2.4 L (3.4-5.0) gm/dl Globulin 3.3 (2.5-4.0) gm/dl Albumin/Globulin Ratio 0.7 L (0.9-2) Lipase 80 (73-393) U/L
--- NOTE | 2019-03-26 11:20 | Consultation Report ---
DATE OF CONSULTATION: 03/26/2019 MEDICAL ONCOLOGY CONSULTATION REASON FOR CONSULTATION: A 68-year-old female patient with metastatic bladder cancer, admitted for hypercalcemia attributable to malignancy. HISTORY OF PRESENT ILLNESS: Jaqui is a very pleasant 68-year-old female patient with end-stage metastatic bladder cancer and other comorbid issues, who presented to the Emergency Room at my request for hypercalcemia attributable to malignancy. Jaqui most recently was started on atezolizumab last received on 03/11/2019 for end-stage metastatic bladder cancer. This agent is one of the novel anti-PD-L1 agents recently approved for metastatic bladder cancer. For the most part, has tolerated therapy very well but clearly Jaqui continues to decline despite our efforts. She reports having difficulties performing activities of daily living and clearly has been unable to provide herself with adequate nutrition. She presently lives independently and has very little social support moving forward. Again, her last treatment was administered on 03/11/2019. I received a phone call yesterday with her calcium well into the 11 range and with an albumin of 2.5 corrected, I estimated around 13-14. Overall, she continues to struggle with skeletal pain, has generalized pain in mostly the hip, groin, and low back region. Her pain is worse with movement, stable at rest. She has been constipated for the past couple of days. Again, I think many of these issues are attributable to her general decline and lack of assistance with daily care. She was awake, alert and conversant this morning at bedside. PAST MEDICAL HISTORY: Significant for end-stage metastatic bladder cancer, osteoarthritis, hyperlipidemia, hypertension, osteoporosis, peripheral vascular disease, and hypertension. PAST SURGICAL HISTORY: Includes previous hysterectomy, bilateral oophorectomy, total cystectomy, appendectomy. CURRENT MEDICATIONS: Include aspirin 325 mg p.o. daily, atorvastatin 40 mg p.o. daily, cholecalciferol 1000 units p.o. q.a.m., gabapentin 300 mg p.o. q.p.m., oxycodone 5-10 mg p.o. t.i.d. p.r.n., potassium chloride 10 mEq p.o. q.a.m., vitamin E 400 units p.o. q.a.m., alendronate 70 mg p.o. weekly, calcium carbonate 500 mg p.o. b.i.d., metoprolol tartrate 50 mg p.o. b.i.d., sublingual Zofran 8 mg every 8 hours as needed. ALLERGIES: No known drug allergies. SOCIAL HISTORY: She is retired and lives independently. She really has no family interaction. She, I believe, continues to smoke on occasion. She is not a drinker or illicit drug user. FAMILY HISTORY: Mother at age 84 from Alzheimer, father passed from myocardial infarction. REVIEW OF SYSTEMS: GENERAL: Jaqui is in a general decline, generalized weakness, becoming increasingly immobile. No fevers or chills or sweats per se. She is anorexic. SKIN: No rashes or lesions. No history of dermatoses. HEENT: Denies headaches, lightheadedness, or dizziness. No dysphagia or sore throat. LYMPHATICS: No history of lymphoproliferative disease. CARDIAC: Negative for coronary artery disease, no angina or palpitations. PULMONARY: Negative for COPD. No shortness of breath, dyspnea, or orthopnea. No cough or hemoptysis. GASTROINTESTINAL: Positive for constipation. No significant abdominal pain. She is presently not nauseated. She reports no hematochezia or melena. GENITOURINARY: Nursing staff reports foul-smelling urine. She denies dysuria or hematuria. MUSCULOSKELETAL: Positive for skeletal metastatic disease. ENDOCRINE: Negative for diabetes or thyroid disease. NEUROLOGIC: Negative for seizure, stroke, or migraine headache. HEMATOLOGIC: Positive for cytopenias attributable to ongoing treatment. PHYSICAL EXAMINATION: GENERAL: Jaqui is a cachectic-appearing 68-year-old white female patient, awake, alert, appropriate, in no acute distress. VITAL SIGNS: Temperature 37.1, pulse 68, respiratory rate 20, blood pressure 95/56. SKIN: Without rash or lesion. HEENT: Atraumatic, normocephalic. PERRLA, EOMI. Sclerae nonicteric. Nares patent. Throat clear. Tongue midline. Mucous membranes are dry. No buccal lesions or ulcerations. NECK: Supple. Trachea midline, no JVD noted. HEART: Regular rate and rhythm. LUNGS: Clear to auscultation bilaterally. ABDOMEN: Soft, nontender, nondistended. EXTREMITIES: No clubbing, cyanosis, or edema. NEUROLOGICAL: She is awake, alert, and oriented x3. Cranial nerves are grossly intact. LABORATORY DATA: WBC count 6560, hemoglobin 10.8, platelet count 238,000. BUN 35, creatinine 0.92, calcium 10.7, AST 131, ALT 120, albumin 2.1. IMPRESSION: 1. Hypercalcemia, attributable to malignancy. 2. Hypoalbuminemia. 3. Elevated liver transaminases. 4. Chronic anemia. 5. Metastatic bladder cancer. PLAN: Jaqui is a very pleasant unfortunate 68-year-old female patient with end-stage metastatic bladder cancer, currently under my care. Jaqui was recently started on atezolizumab receiving her second dose about a week ago. She seems to be tolerating therapy reasonably well, but clearly she is in a general clinical decline and in my professional opinion no longer able to care for herself at home. She readily admits to not being able to clean her home or prepare meals. She commented this morning on how good the hospital food was, so clearly Jaqui has an appetite, but I do not believe adequate nutrition is available for her at home. She continues to grapple with cancer-induced pain, but overall I believe most of her issues are attributable to a general decline. Upon disease progression, Jaqui was started on Tecentriq which is a novel anti-PD-L1 agent recently FDA approved for metastatic bladder cancer. Anti-PD-L1 agents can be quite effective but also result in significant toxicities, particularly autoimmune in nature. Additionally, this drug can cause elevated liver transaminases, which I suspect may be going on in Jaqui's case. I agree with current medical management to normalize her calcium level through bisphosphonates, IV saline, perhaps Lasix as well. Beyond that, I believe case management should be activated to look into Jaqui's long-term care. I think ultimately she may need to be placed moving forward. I did not engage in discussion regarding her code status, but believe that she is DNR and DNI. At this juncture, Jaqui wants to continue to fight her disease if possible, but remains very realistic regarding her mortality. I will continue to follow her periodically during her stay. I appreciate your assistance in the care of this very pleasant lady. If you have any questions or concerns, feel free to contact me.
[2019-03-26] MEDS: OXYCODONE HCL IR 5 MG TAB (IMMEDIATE RELEASE) PO PRN (15:29)
--- NOTE | 2019-03-26 15:57 | Palliative Care Consultation ---
Date of Consultation March 26, 2019 Assessment & Plan (1) Palliative care encounter: Patient is a 68-year-old female known to me from her hospitalization in January who has past medical history significant for metastatic urothelial carcinoma with extensive bony mets-primarily in the pelvis as well as liver mets. Patient was diagnosed in July 2016-underwent an initial treatment and had done well until she had a recurrence in November 2017. Patient underwent cystectomy in December, nodes were positive at that time. Patient was found to have pelvic metastases in June 2018-received XRT, completed on 11/23/18. Patient was instructed to come to the emergency room on 03/25 due to abnormal lab results-patient had an elevated calcium level -her calcium was nearly 13 when corrected for her low albumin. Patient's ionized calcium was elevated at 1.62. Patient's past medical history is significant for PVD-status post stent, osteoarthritis, hypertension, HLD, osteoporosis-on Fosamax, and chemo-induced peripheral neuropathy. Patient states her bone pain pain has been well controlled with oxycodone at 10 mg in the morning, 10 mg in the afternoon and 5 mg nightly. Patient also complains of abdominal discomfort and distention due to constipation. Patient was treated with IV fluids and a dose of Zometia - calcium level decreased to 10.7-approximately 12 when corrected for her low albumin. On last admission patient stated she wanted her son Yordan to make medical decisions if she was unable to-she did not complete the paperwork-this was done with her today at bedside. Copy to be placed in her medical record, original for her to give to her son Yordan. If Yordan was not available or able to make medical decisions her son Anson, would be her secondary decision maker. Patient has met with Dr. Shea and expects to see him again later today regarding her current chemo-patient was started on Tecentriq -she has received 2 doses-her last dose was on 03/11. Patient does note increased fatigue and weakness due to her chemo. She is having more difficulty caring for her self and home. Had a mark discussion with patient regarding her current treatment given she now has hypercalcemia. Encourage patient to discuss with Dr. Shea the effectiveness of her treatment with the possibility of controlling her disease and keeping hypercalcemia under control. Patient is very accepting of having limited options regarding further care-immediate decisions will depend on her conversation with Dr. Shea Patient's CODE STATUS is DNR -Hypercalcemia-continue hydration and follow calcium levels -Metastatic urothelial carcinoma-further plans per oncology-encouraged patient to have a mark discussion regarding her prognosis as well as effectiveness of current treatment -Filled out healthcare surrogate paperwork naming her son Yordan as healthcare surrogate-copy placed in medical record-patient instructed to give the original to her son Yordan -Extensive bony mets with pathological fracture of the left inferior pubic ramus-pain well controlled with oxycodone IR-10 mg in the morning, 10 mg in the afternoon and 5 mg nightly -Advance care planning-will collaborate with Case management regarding home health agencies as well as private duty and nursing facilities. -Constipation-patient on senna S and MiraLAX. -Peripheral neuropathy-continue Neurontin 300 mg nightly Will continue to follow and assist with medical decision making. (2) Hypercalcemia: Improving with current treatment (3) Constipation: Continue senna S and MiraLAX (4) Weakness: If patient decides to return home-we will likely need more help at home-we will coordinate with case management (5) Pain from bone metastases: Well-controlled with oxycodone IR 10 mg in the morning, 10 mg in the afternoon and 5 mg nightly (6) Metastases to the liver: Following LFTs (7) Peripheral neuropathy due to chemotherapy: Continue Neurontin 300 mg nightly History of Present Illness Reason for Consultation: Prior palliative patient, assist with goals and medical decision making Requesting Physician: Ligia Deng PA-C Attending Physician: Devendra Peters History of Present Illness Patient seen and examined along with [employer] student. Patient is a 68-year-old female known to me from her hospitalization in January who has past medical history significant for metastatic urothelial carcinoma with extensive bony mets-primarily in the pelvis as well as liver mets. Patient was diagnosed in July 2016-underwent an initial treatment and had done well until she had a recurrence in November 2017. Patient underwent cystectomy in December, nodes were positive at that time. Patient was found to have pelvic metastases in June 2018-received XRT, completed on 11/23/18. Patient was instructed to come to the emergency room on 03/25 due to abnormal lab results- patient had an elevated calcium level -her calcium was nearly 13 when corrected for her low albumin. Patient's ionized calcium was elevated at 1.62. Patient's past medical history is significant for PVD-status post stent, osteoarthritis, hypertension, HLD, osteoporosis-on Fosamax, and chemo-induced peripheral neuropathy. Patient states her bone pain pain has been well controlled with oxycodone at 10 mg in the morning, 10 mg in the afternoon and 5 mg nightly. Patient also complains of abdominal discomfort and distention due to constipation. Patient was treated with IV fluids and a dose of Zometia -calcium level decreased to 10.7-approximately 12 when corrected for her low albumin. On last admission patient stated she wanted her son Yordan to make medical decisions if she was unable to-she did not complete the paperwork-this was done with her today at bedside. Copy to be placed in her medical record, original for her to give to her son Yordan. If Yordan was not available or able to make medical decisions her son Anson, would be her secondary decision maker. Patient has met with Dr. Shea and expects to see him again later today regarding her current chemo-patient was started on Tecentriq -she has received 2 doses-her last dose was on 03/11. Patient does note increased fatigue and weakness due to her chemo. She is having more difficulty caring for her self and home. Had a mark discussion with patient regarding her current treatment given she now has hypercalcemia. Encourage patient to discuss with Dr. Shea the effectiveness of her treatment with the possibility of controlling her disease and keeping hypercalcemia under control. Patient is very accepting of having limited options regarding further care-immediate decisions will depend on her conversation with Dr. Shea Patient's CODE STATUS is DNR Allergies Allergy/AdvReac Type Severity Reaction Status Date / Time No Known Allergies Allergy Verified 01/23/19 00:03 Home Medications Home Medications Medication Instructions Recorded Confirmed Type aspirin, buffered 325 mg PO QAM 01/23/19 03/25/19 History atorvastatin 40 mg PO QPM 01/23/19 03/25/19 History cholecalciferol (vitamin D3) 1,000 unit PO QAM 01/23/19 03/25/19 History [Vitamin D3] gabapentin 300 mg PO QPM 01/23/19 03/25/19 History oxycodone 5 - 10 mg PO TID PRN 01/23/19 03/25/19 History potassium chloride 10 meq PO QAM 01/23/19 03/25/19 History vitamin E 400 unit PO QAM 01/23/19 03/25/19 History alendronate 70 mg PO WK 03/25/19 03/25/19 History calcium carbonate [Calcium 500] 500 mg PO BID 03/25/19 03/25/19 History metoprolol tartrate 50 mg PO BID 03/25/19 03/25/19 History ondansetron 8 mg TRANSLINGUAL Q8H PRN 03/25/19 03/25/19 History Patient History Medical History PVD (peripheral vascular disease) (Chronic) "s/p stent placement" Hypertension (Chronic) Bladder cancer (Chronic) Gross hematuria 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 Status post cystoscopy and biopsy July 26, 2016 Reoccurrence October 08, 2017 right neck of the bladder Status post radical cystectomy December 10, 2017 Systemic chemotherapy with cisplatin and Gemzar beginning February 14, 2018 Enlarging left common iliac lymph nodes beginning February 2018 Bone metastasis left inferior pubic ramus noted July 02, 2018 Arthritis (Chronic) Hyperlipemia (Chronic) Hypertension (Chronic) Osteoporosis (Chronic) Surgical History History of procedure for peripheral vascular disease (Chronic) S/P urological surgery (Chronic) History of hysterectomy (Chronic) H/O hysterectomy with oophorectomy (Resolved) H/O total cystectomy (Resolved) History of appendectomy (Resolved) Family History Mother , Passed age 84 of Alzheimers No problems noted. Father , Passed age 64 of AL No problems noted. Brother No problems noted. Brother No problems noted. Brother No problems noted. Brother No problems noted. Son Cerebral aneurysm Son Cerebral aneurysm Social History Preferred Language: Irish Communication Ability: Effective Visual Impairment: Limited Hearing Ability: Hard of Hearing Instructional Support Assistant Required: No Beliefs That Will Affect Care: Spiritism Spiritism Beliefs: Latter-Day marital status: Current Living Situation: Alone current occupational status: retired current occupation: Retired from [employer] Other Information That Helps Us Care for You: No Feels Safe at Home: Yes Safety Concerns: Feels Safe At This Time Smoking Status: Former smoker Tobacco Type: cigarettes Cigarettes Per Day: Down to 10, avg was 1pack/day Do You Dip or Chew Tobacco: No Second Hand Exposure: No Tobacco Cessation Education Requested by Patient: No Hx Alcohol Use: Yes Alcohol type: wine Hx Substance Use: No caffeine: No during the past year weight has: decreased > 10 lbs Review of Systems Constitutional: + fatigue and + weakness; no anorexia Eyes: no problem reported Ear, Nose, Mouth, Throat: no problem reported Respiratory: + dyspnea on exertion Cardiovascular: no chest pain Gastrointestinal: + constipation Genitourinary: Urostomy Musculoskeletal: + muscle weakness Integumentary: no rash Neurologic: + generalized weakness; no behavioral changes Psychiatric: no hopelessness Realistic regarding her disease process Endocrine: no problem reported Physical Exam Physical Exam: PE: No acute distress HEENT: Alopecia, EOMI, hearing within normal limits Respiratory: Lungs clear on exam, increased shortness of breath with exertion- likely due to fatigue CV: Regular rate Abdomen: Distended, urostomy in place Extremities: No edema, generalized weakness Neuro: Alert and oriented-able to make medical decisions at this time Psych: Appropriate mood Results & Data Vital Signs (Past 12 Hours) Vital Signs Temp Pulse Pulse Resp BP BP Pulse Ox 03/26/19 15:26 03/26/19 14:58 97.5 F L 81 19 106/60 91 03/26/19 13:00 98.4 F 75 16 92/54 L 91 03/26/19 08:00 67 03/26/19 07:27 98.8 F 68 20 95/56 L 90 03/26/19 04:00 98.1 F 94 H 18 94/61 L 94 Pulse Ox 03/26/19 15:26 94 03/26/19 14:58 03/26/19 13:00 03/26/19 08:00 03/26/19 07:27 03/26/19 04:00 Time Spent Attending Total time spent 60 minutes with greater than 50% of the time spent at bedside discussing patient's current status as well as goals of care.
[2019-03-26] MEDS: ENOXAPARIN INJ 40 MG/0.4 ML SYR SQ SCH (21:23)
[2019-03-26] MEDS: GABAPENTIN 300 MG CAP PO SCH (21:23)
[2019-03-27] MEDS: HEPARIN 100 UNIT/ML 5ML FLUSH IV PRN (00:31)
[2019-03-27 06:22] LABS: Hematocrit (blood only) 35.1 % (37-47); Hemoglobin 11.6 g/dL (12.0-16.0); Mean Corpuscular Volume 89.8 fL (80-100); Mean Platelet Volume 9.9 fL (7.4-10.4); Platelet Count 256 K/uL (130-400); RDW Standard Deviation 56.2 fL (36.4-46.3); Red Blood Count 3.91 M/uL (4.2-5.4); White Blood Count 6.83 K/uL (4.8-10.8)
[2019-03-27 06:54] LABS: Albumin Level 2.1 gm/dl (3.4-5.0); BUN Creatinine Ratio 38.9 (10-20); Calcium 10.5 mg/dl (8.5-10.1); Creatinine Clr Calc Pharmacy 43.8 ml/min; Est GFR (Non-African American) 69.9; Magnesium 1.9 mg/dl (1.8-2.4); Potassium 4.1 mmol/L (3.5-5.1)
[2019-03-27 06:56] LABS: Albumin Globulin Ratio 0.7 (0.9-2); Bilirubin,Total 0.7 mg/dl (0.2-1); Total Protein 5.1 gm/dl (6.4-8.2)
[2019-03-27] MEDS: POLYETHYLENE (MIRALAX) 17 GM PACK PO SCH (08:02)
[2019-03-27] MEDS: DOCUSATE SODIUM/SENNA 50/8.6MG TAB PO SCH ×2 (08:02→20:23)
[2019-03-27] MEDS: ASPIRIN/ALUM/MAGNES/CAL CARB 325 MG TAB PO SCH (08:02)
[2019-03-27] MEDS: CHOLECALCIFEROL 1,000 UNITS TAB PO SCH (08:02)
[2019-03-27] MEDS: OXYCODONE HCL IR 5 MG TAB (IMMEDIATE RELEASE) PO PRN ×2 (08:06→20:22)
--- NOTE | 2019-03-27 11:24 | Hospitalist Progress Note ---
Date of Service March 27, 2019 Assessment & Plan (1) Hypercalcemia: - Corrected calcium level was 12.6 in setting of metastatic bladder cancer with nilda metastasis and calcium supplementation. - Level is improved to 11.6; monitor qAM. - Zometa 4 mg IV x 1 dose on 03/25/19. - D/c'ed IV fluids. - Will need to discontinue all calcium supplementation following discharge. (2) Bladder cancer metastasized to bone: - Follows with oncology; was recently started on Tecentriq as outpatient due to progression of disease. - Has left inferior pubic ramus lesion, right acetabular lesion and left proximal femoral lesion noted on most recent imaging. - Has been evaluated by rad/onc in the past; no specific area identified that would benefit from radiation therapy. - Consulted oncology for evaluation -- pt. would like to continue treatment as outpatient. - Consulted palliative care, appreciate input. - Will need to discuss discharge planning with her family -- pt. has declined overall and would require 24 hour assistance at home. - Continue Oxycodone 5-10 mg q6h for cancer related pain. (3) Metastases to the liver: - Treatment as noted above. - LFTs are elevated above baseline, may indicate progression of liver tana vs. related to recent therapy. (4) Antineoplastic chemotherapy induced anemia: - Monitor H/H daily, transfuse for hgb <7. (5) Elevated LFTs: - LFTs are trending up overall, may be related to recent therapy vs. progression of disease. - During previous admission, imaging showed mild gallbladder wall thickening and mild biliary duct dilatation. - No indication for further work up. - Holding home statin. (6) Weakness: - Likely related to metastatic bladder cancer and chemotherapy. - PT/OT recommends 24 hour supervision at home with home health vs. SNF placement. - Pt. would like to return to home -- will need to confirm with family that she has support at home. Otherwise will need to investigate placement options. 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 (8) Hyperlipidemia LDL goal <70: - Holding statin due to elevated LFTs. (9) Hypertension: - Hold Metoprolol 50 mg BID in setting of hypotension -- remains borderline low, will continue to hold. - Previously on Amlodipine, now discontinued. (10) PVD (peripheral vascular disease): - Continue aspirin 325 mg daily, holding statin as noted above. (11) Constipation: - Senokot S BID with Miralax daily scheduled. (12) Lower extremity edema: - May be related to hypoalbuminemia vs. other. - Doppler of bilat LE was negative for DVT. - Monitor daily -- no indication for diuresis in setting of borderline hypotension. (13) Severe protein-calorie malnutrition: - In setting of stage IV bladder cancer, poor PO intake. - Encourage PO intake with supplements as tolerated. (14) DVT prophylaxis: - SCDs; Lovenox 40 mg subQ q24hr (high risk) Dispo: Med/surg for treatment of hypercalcemia. PT/OT recommending SNF vs. 24 hour supervision. Plan for family meeting tomorrow at 10 am to discuss discharge planning. Supervising Physician Co-Signing Physician Notes Attending Note & Attestation: Chart reviewed, care plan d/w TRACY Hernandez. I agree w/ the quiroz components of her documentation. Hypercalcemia stable s/p recent fluids and zometa. PT,OT evals - recommending 24 hour supervision. Heme/onc and palliative care both have evaluated. Goals of care will be refined during family meeting tomorrow. Devendra Peters MD Subjective Pt. is very fatigued, weak. Was evaluated by oncology and palliative yesterday -- she would like to continue treatment as outpatient. Complains of pain in abd, improved with home oxycodone. Denies chest pain, SOB, N/V, constipation. PT/OT evaluated -- recommended 24 hour supervision at home vs. SNF placement if 24 hour supervision is not available. Review of Systems Review of Systems: All systems reviewed & are unremarkable except as noted in HPI & below Constitutional: + fatigue, + weakness and + anorexia; no fever and no chills Respiratory: no cough, no dyspnea, no dyspnea on exertion and no wheezing Cardiovascular: + edema; no chest pain, no palpitations and no lightheadedness Gastrointestinal: + abdominal pain; no nausea, no vomiting, no constipation and no diarrhea/loose stools Genitourinary: no difficulty urinating Musculoskeletal: + back pain, + joint pain and + body aches Integumentary: no non-healing lesions Allergy / Immunological: no rash Physical Exam Physical Exam: General: Chronically ill appearing female. HEENT: NC/AT; PERRLA with EOMI; [place] conjunctiva, MMM. No erythema of posterior pharynx Neck: Supple and nontender Cardiac: RRR Lungs: CTA bilaterally; No rhonchi, wheezing, or rales Abdomen: Bowel normoactive X 4; Nontender to palpation Extremities: Warm. No LE edema noted. Neuro: No focal weakness Skin: No rash Results & Data Vital Signs (Past 12 Hours) Vital Signs Temp Pulse Pulse Resp BP Pulse Ox 03/27/19 07:00 36.7 C 102 H 18 102/65 92 03/27/19 04:43 36.9 C 94 H 18 101/59 L 90 03/27/19 00:21 83 03/26/19 23:39 36.4 C L 77 18 106/66 91 Laboratory Results 03/27/19 03/27/19 Range/Units 05:52 05:52 WBC 6.83 (4.8-10.8) K/uL RBC 3.91 L (4.2-5.4) M/uL Hgb 11.6 L (12.0-16.0) g/dL Hct 35.1 L (37-47) % MCV 89.8 (80-100) fL MCH 29.7 (25-34) pg MCHC 33.0 (32-36) g/dL RDW Std Deviation 56.2 H (36.4-46.3) fL RDW Coeff of [place] 17.0 H (11.5-14.5) % Plt Count 256 (130-400) K/uL MPV 9.9 (7.4-10.4) fL Sodium 137 (136-145) mmol/L Potassium 4.1 (3.5-5.1) mmol/L Chloride 109 H (98-107) mmol/L Carbon Dioxide 25 (21-32) mmol/L Anion Gap 3.0 (3-11) BUN 33 H (7-18) mg/dl Creatinine 0.85 (0.6-1.2) mg/dl Est Cr Clr Drug Dosing 43.8 ml/min Est GFR ( Amer) 81.0 Est GFR (Non-Af Amer) 69.9 BUN/Creatinine Ratio 38.9 H (10-20) Glucose 99 (70-99) mg/dl Calcium 10.5 H (8.5-10.1) mg/dl Magnesium 1.9 (1.8-2.4) mg/dl Total Bilirubin 0.7 (0.2-1) mg/dl AST 161 H (15-37) U/L ALT 151 H (12-78) U/L Alkaline Phosphatase 243 H (45-117) U/L Total Protein 5.1 L (6.4-8.2) gm/dl Albumin 2.1 L (3.4-5.0) gm/dl Globulin 3.0 (2.5-4.0) gm/dl Albumin/Globulin Ratio 0.7 L (0.9-2)
--- NOTE | 2019-03-27 14:59 | Palliative Care Progress Note ---
Date of Service March 27, 2019 Assessment & Plan (1) Palliative care encounter: Patient is a 68-year-old female known to me from her hospitalization in January who has past medical history significant for metastatic urothelial carcinoma with extensive bony mets-primarily in the pelvis as well as liver mets. Patient was diagnosed in July 2016-underwent an initial treatment and had done well until she had a recurrence in November 2017. Patient underwent cystectomy in December, nodes were positive at that time. Patient was found to have pelvic metastases in June 2018-received XRT, completed on 11/23/18. Patient was instructed to come to the emergency room on 03/25 due to abnormal lab results-patient had an elevated calcium level -her calcium was nearly 13 when corrected for her low albumin. Patient's ionized calcium was elevated at 1.62. Patient's past medical history is significant for PVD-status post stent, osteoarthritis, hypertension, HLD, osteoporosis-on Fosamax, and chemo-induced peripheral neuropathy. Patient states her bone pain pain has been well controlled with oxycodone at 10 mg in the morning, 10 mg in the afternoon and 5 mg nightly. Patient also complains of abdominal discomfort and distention due to constipation. Patient was treated with IV fluids and a dose of Zometia - calcium level decreased to 10.7-approximately 12 when corrected for her low albumin. Dr. Shea was unable to stop by last p.m. and has not been by so far today.- patient was started on Tecentriq -she has received 2 doses-her last dose was on 03/11. Patient's next dose is due on 03/31-patient is hoping to feel well enough to receive chemo. Patient does note increased fatigue and weakness due to her chemo. She is having more difficulty caring for her self and home. Patient wishes to return home-has friends that can assist as well as her [id number]. Discussed having people prepare food as well as obtaining a life alert button so she can call for help if she would need it -Patient wishes to remain a DNR -Hypercalcemia-improved -Metastatic urothelial carcinoma-further plans per oncology-patient planning to continue with her chemo-next dose due on 03/31, -Filled out healthcare surrogate paperwork naming her son Yordan as healthcare surrogate-copy placed in medical record-patient instructed to give the original to her son Yordan, alternate decision-maker is her son Anson -Extensive bony mets with pathological fracture of the left inferior pubic ramus-pain well controlled with oxycodone IR-10 mg in the morning, 10 mg in the afternoon and 5 mg nightly -Advance care planning-will collaborate with Case management regarding home health agencies as well as private duty and nursing facilities. -Constipation-patient on senna S and MiraLAX. -Peripheral neuropathy-continue Neurontin 300 mg nightly -Patient offered outpatient [id number] card with numbers to call to make appointment, patient can also make appointment through Dr. Shea's office. (2) Hypercalcemia: Improving (3) Weakness: Slightly improved-would like to get her home as soon as possible so she can get better rest. Friends and family to assist with meals (4) Bladder cancer metastasized to bone: Patient wanting to continue chemo (5) Pathological fracture in neoplastic disease, pelvis, initial encounter for fracture: Pain well controlled on current oxycodone resume (6) Metastases to the liver: (7) Presence of urostomy: Subjective Patient awake and alert, sitting up in a chair on exam this afternoon. Patient states she feels a little bit stronger, abdomen more comfortable after having a bowel movement. Patient still significantly fatigued-she is hoping to go home and be able to continue her chemotherapy which is scheduled for 03/31. Patient continues on her current oxycodone regime-patient did receive 1 PRN oxycodone yesterday, she received 1 this a.m. at 0800 Review of Systems Review of Systems: Patient denies fever, chills, chest pain, increased shortness of breath, or new GI/ issues. Patient continues to have significant fatigue Physical Exam Physical Exam: PE: Patient appears comfortable, fatigued HEENT: Alopecia, EOMI, hearing within normal limits Respirations: Diminished breath sounds bilaterally CV: Regular rate, no edema Abdomen: Distended, urostomy in place Extremities: Generalized weakness Neuro: Alert and oriented x4-able to make medical decisions Results & Data Vital Signs (Past 12 Hours) Vital Signs Temp Pulse Resp BP Pulse Ox 03/27/19 11:00 98.2 F 91 H 16 99/86 L 92 03/27/19 07:00 98.1 F 102 H 18 102/65 92 03/27/19 04:43 98.4 F 94 H 18 101/59 L 90 Time Spent Attending Total time spent 35 minutes with greater than 50% of the time spent at bedside assessing patient, discussing goals of care, and offering outpatient follow-up information
[2019-03-27] MEDS: GABAPENTIN 300 MG CAP PO SCH (20:23)
[2019-03-27] MEDS: ENOXAPARIN INJ 40 MG/0.4 ML SYR SQ SCH (20:24)
[2019-03-28 07:06] LABS: Hematocrit (blood only) 35.1 % (37-47); Hemoglobin 11.7 g/dL (12.0-16.0); Mean Corpuscular Hgb Conc 33.3 g/dL (32-36); Mean Corpuscular Volume 89.3 fL (80-100); Mean Platelet Volume 9.1 fL (7.4-10.4); Platelet Count 225 K/uL (130-400); RDW Coefficient of Variation 17.1 % (11.5-14.5); RDW Standard Deviation 56.2 fL (36.4-46.3); Red Blood Count 3.93 M/uL (4.2-5.4); White Blood Count 8.29 K/uL (4.8-10.8)
[2019-03-28 07:42] LABS: Albumin Level 2.1 gm/dl (3.4-5.0); BUN Creatinine Ratio 42.2 (10-20); Bilirubin,Total 0.8 mg/dl (0.2-1); Calcium 10.9 mg/dl (8.5-10.1); Creatinine Clr Calc Pharmacy 46.1 ml/min; Est GFR (African American) 78.8; Potassium 4.2 mmol/L (3.5-5.1)
[2019-03-28 07:44] LABS: Albumin Globulin Ratio 0.7 (0.9-2); Globulin 3.1 gm/dl (2.5-4.0); Total Protein 5.2 gm/dl (6.4-8.2)
[2019-03-28] MEDS: DOCUSATE SODIUM/SENNA 50/8.6MG TAB PO SCH ×2 (08:27→20:31)
[2019-03-28] MEDS: POLYETHYLENE (MIRALAX) 17 GM PACK PO SCH (08:27)
[2019-03-28] MEDS: CHOLECALCIFEROL 1,000 UNITS TAB PO SCH (08:27)
[2019-03-28] MEDS: ASPIRIN/ALUM/MAGNES/CAL CARB 325 MG TAB PO SCH (08:27)
[2019-03-28] MEDS: OXYCODONE HCL IR 5 MG TAB (IMMEDIATE RELEASE) PO PRN (10:13)
--- NOTE | 2019-03-28 11:35 | Hospitalist Progress Note ---
Date of Service March 28, 2019 Assessment & Plan (1) Hypercalcemia: - Corrected calcium level was 12.6 in setting of metastatic bladder cancer with nilda metastasis and calcium supplementation. - Level remains elevated at 11.9; monitor qAM. - Zometa 4 mg IV x 1 dose on 03/25/19. - Discontinue all calcium supplementation following discharge. (2) Bladder cancer metastasized to bone: - Follows with oncology; was recently started on Tecentriq as outpatient due to progression of disease. - Has left inferior pubic ramus lesion, right acetabular lesion and left proximal femoral lesion noted on most recent imaging. - Has been evaluated by rad/onc in the past; no specific area identified that would benefit from radiation therapy. - Consulted oncology and palliative care, appreciate input. - Discussed prognosis & discharge planning with the family -- pt. would like to transition to hospice and discontinue all therapy. - Continue Oxycodone q6h as needed for pain. (3) Metastases to the liver: - Treatment as noted above. - LFTs above baseline, may indicate progression of liver tana vs. related to recent therapy. (4) Antineoplastic chemotherapy induced anemia: - Monitor H/H q48hr, transfuse for hgb <7. (5) Elevated LFTs: - LFTs are elevated, may be related to recent therapy vs. progression of disease. - During previous admission, imaging showed mild gallbladder wall thickening and mild biliary duct dilatation. - No indication for further work up. - Hold home statin. (6) Weakness: - Likely related to metastatic bladder cancer and chemotherapy. - PT/OT recommended 24 hour supervision at home vs. SNF -- pt. does not have family support to provide 24 hour supervision. - Family meeting today - she would like to transition to hospice; will need to be SNF placement with hospice due to lack of support for home hospice. - Case management is following for placement issues. 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 (8) Hyperlipidemia LDL goal <70: - Hold statin due to elevated LFTs. (9) Hypertension: - Hold Metoprolol 50 mg BID in setting of hypotension -- has been normotensive without med, will continue to hold. - Previously on Amlodipine, now discontinued. (10) PVD (peripheral vascular disease): - Continue aspirin 325 mg daily, hold statin as noted above. (11) Constipation: - Senokot S BID with Miralax daily scheduled. (12) Lower extremity edema: - May be related to hypoalbuminemia vs. other. - Doppler of bilat LE was negative for DVT. - No indication for diuresis. (13) Severe protein-calorie malnutrition: - In setting of stage IV bladder cancer, poor PO intake. - Encourage PO intake with supplements as tolerated. (14) DVT prophylaxis: - SCDs; Lovenox 40 mg subQ q24hr (high risk) Dispo: Med/surg for monitoring of hypercalcemia; plan for placement at SNF with hospice following family discussion. Will remain inpatient until at least Saturday due to holiday weekend. Case management following. Supervising Physician Co-Signing Physician Notes Attending Note & Attestation: Chart reviewed, care plan d/w TRACY Hernandez. I agree w/ the quiroz components of her documentation. Stage 4 bladder ca and hypercalcemia. Failure to thrive. Family meeting today - patient to transition to hospice. Dispo planning - may need SNF placement. Devendra Peters MD Subjective Pt. has increased pain today -- located in hips, abd. Has been using oxycodone prn. Is having BMs, denies constipation. Met with family at bedside today -- both her sons and her daughter in law. We discussed plan of care for discharge. Pt. does not have 24 hour supervision at home due to family members who work during the day. She is very weak -- confirmed with nurse that patient would need 24 hour support at home due to difficulty ambulating, inability to complete daily tasks. She was introduced to the idea of an assisted living facility. Pt. is very concerned about the cost of a SNF -- she cannot pay out of pocket for SNF services. We discussed pursuing further chemotherapy vs. hospice. She has discussed hospice with Dr. Shea in the past but decided to pursue ongoing therapy following prior discussions. During our conversation today, pt. did express she does not want to become a burden to her family. After reassurance that she is not a burden to her family, pt. stated she "is done". She does not want further therapy along with outpatient appoint ments/labs. She stated that she does know her prognosis is poor and will eventually lead to . We discussed the benefits of hospice for both the patient and her family. Her family was in agreeance with her decision to stop therapy and transition to hospice. manager of compensation also was present for part of the meeting; will investigate placement options for SNF with hospice. Will also need to determine cost/if placement would be out of pocket. She does not have 24 hour support at home for home hospice. Review of Systems Review of Systems: All systems reviewed & are unremarkable except as noted in HPI & below Constitutional: + fatigue, + weakness and + anorexia; no fever and no chills Respiratory: no cough, no dyspnea, no dyspnea on exertion and no wheezing Cardiovascular: no chest pain, no palpitations and no edema Gastrointestinal: + abdominal pain; no nausea and no constipation Genitourinary: no difficulty urinating Musculoskeletal: + back pain, + joint pain and + myalgia Integumentary: no non-healing lesions Allergy / Immunological: no rash Physical Exam Physical Exam: General: Chronically ill appearing female. HEENT: NC/AT; PERRLA with EOMI; Angelica conjunctiva, MMM. No erythema of posterior pharynx Neck: Supple and nontender Cardiac: RRR Lungs: CTA bilaterally; No rhonchi, wheezing, or rales Abdomen: Bowel normoactive X 4; Nontender to palpation Extremities: Warm. No LE edema noted. Neuro: No focal weakness Skin: No rash Results & Data Vital Signs (Past 12 Hours) Vital Signs Temp Pulse Resp BP Pulse Ox 03/28/19 07:40 36.8 C 87 16 101/63 93 Laboratory Results 03/28/19 03/28/19 Range/Units 06:46 06:46 WBC 8.29 (4.8-10.8) K/uL RBC 3.93 L (4.2-5.4) M/uL Hgb 11.7 L (12.0-16.0) g/dL Hct 35.1 L (37-47) % MCV 89.3 (80-100) fL MCH 29.8 (25-34) pg MCHC 33.3 (32-36) g/dL RDW Std Deviation 56.2 H (36.4-46.3) fL RDW Coeff of [place] 17.1 H (11.5-14.5) % Plt Count 225 (130-400) K/uL MPV 9.1 (7.4-10.4) fL Sodium 140 (136-145) mmol/L Potassium 4.2 (3.5-5.1) mmol/L Chloride 110 H (98-107) mmol/L Carbon Dioxide 24 (21-32) mmol/L Anion Gap 6.0 (3-11) BUN 37 H (7-18) mg/dl Creatinine 0.87 (0.6-1.2) mg/dl Est Cr Clr Drug Dosing 46.1 ml/min Est GFR ( Amer) 78.8 Est GFR (Non-Af Amer) 68.0 BUN/Creatinine Ratio 42.2 H (10-20) Glucose 101 H (70-99) mg/dl Calcium 10.9 H (8.5-10.1) mg/dl Magnesium 2.0 (1.8-2.4) mg/dl Total Bilirubin 0.8 (0.2-1) mg/dl AST 153 H (15-37) U/L ALT 163 H (12-78) U/L Alkaline Phosphatase 241 H (45-117) U/L Total Protein 5.2 L (6.4-8.2) gm/dl Albumin 2.1 L (3.4-5.0) gm/dl Globulin 3.1 (2.5-4.0) gm/dl Albumin/Globulin Ratio 0.7 L (0.9-2)
[2019-03-28] MEDS: ENOXAPARIN INJ 40 MG/0.4 ML SYR SQ SCH (20:31)
[2019-03-28] MEDS: GABAPENTIN 300 MG CAP PO SCH (20:31)
[2019-03-29] MEDS: OXYCODONE HCL IR 5 MG TAB (IMMEDIATE RELEASE) PO PRN ×2 (08:19→16:24)
[2019-03-29] MEDS: CHOLECALCIFEROL 1,000 UNITS TAB PO SCH (08:19)
[2019-03-29] MEDS: POLYETHYLENE (MIRALAX) 17 GM PACK PO SCH (08:19)
[2019-03-29] MEDS: DOCUSATE SODIUM/SENNA 50/8.6MG TAB PO SCH ×2 (08:19→19:36)
[2019-03-29] MEDS: ASPIRIN/ALUM/MAGNES/CAL CARB 325 MG TAB PO SCH (08:19)
--- NOTE | 2019-03-29 10:31 | Hospitalist Progress Note ---
Date of Service March 29, 2019 Assessment & Plan (1) Hypercalcemia: - Corrected calcium level was 12.6 in setting of metastatic bladder cancer with nilda metastasis and calcium supplementation. - Level remains elevated, will monitor q48hr. - Zometa 4 mg IV on 03/25/19. - Discontinue all calcium supplementation at discharge. (2) Bladder cancer metastasized to bone: - Follows with oncology; was recently started on Tecentriq as outpatient due to progression of disease. - Has left inferior pubic ramus lesion, right acetabular lesion and left proximal femoral lesion noted on most recent imaging. - Consulted oncology and palliative care, appreciate input. - Discussed prognosis & discharge planning with the family on 03/28 -- pt. would like to transition to hospice and discontinue all therapy. - Continue Oxycodone q6h as needed for pain. (3) Metastases to the liver: - Treatment as noted above. - LFTs above baseline, may indicate progression of liver metastasis vs. related to recent therapy. (4) Antineoplastic chemotherapy induced anemia: - Monitor H/H q48hr. (5) Elevated LFTs: - LFTs are elevated, related to recent therapy vs. progression of disease. - No indication for further work up. - Holding home statin. (6) Weakness: - Likely related to metastatic bladder cancer and chemotherapy. - PT/OT recommended 24 hour supervision at home vs. SNF -- pt. does not have family support to provide 24 hour supervision. - Family meeting on 03/28 - would like to transition to hospice; will need SNF placement with hospice due to lack of 24 hour care at home. - Case management is following. 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 (8) Hyperlipidemia LDL goal <70: - Hold statin due to elevated LFTs. (9) Hypertension: - Hold Metoprolol in setting of hypotension. - Has been normotensive without med, will continue to hold beta martin. (10) PVD (peripheral vascular disease): - Continue aspirin 325 mg daily, hold statin as noted above. (11) Constipation: - Senokot S BID with Miralax daily scheduled. (12) Lower extremity edema: - May be related to hypoalbuminemia vs. other. - Doppler of bilat LE was negative for DVT. - No indication for diuresis. (13) Severe protein-calorie malnutrition: - In setting of stage IV bladder cancer, poor PO intake. - Encourage PO intake with supplements as tolerated. (14) DVT prophylaxis: - SCDs; Lovenox 40 mg subQ q24hr. Dispo: Med/surg for monitoring of hypercalcemia; plan for placement at SNF with hospice following family discussion. Will remain inpatient until at least Saturday due to holiday weekend. Case management following. Supervising Physician Co-Signing Physician Notes Attending Note & Attestation: Chart reviewed, care plan d/w PA Ligia Hernandez. I agree w/ the uqiroz components of her documentation. Stage 4 bladder ca and hypercalcemia. s/p [facility] day #1. Failure to thrive and weakness. Patient to transition to hospice at discharge. Needs SNF placement for such. Devendra Peters MD Subjective Pt. is very weak/fatigued. Pain well controlled with Oxycodone. Review of Systems Review of Systems: All systems reviewed & are unremarkable except as noted in HPI & below Constitutional: + fatigue, + weakness and + anorexia; no fever and no chills Respiratory: no cough, no dyspnea, no dyspnea on exertion and no wheezing Cardiovascular: no chest pain, no palpitations and no edema Gastrointestinal: no abdominal pain, no nausea and no constipation Genitourinary: no difficulty urinating Musculoskeletal: + back pain, + joint pain, + myalgia and + body aches Integumentary: no non-healing lesions Allergy / Immunological: no rash Physical Exam Physical Exam: General: Chronically ill appearing female. HEENT: NC/AT; PERRLA with EOMI; [place] conjunctiva, MMM. No erythema of posterior pharynx Neck: Supple and nontender Cardiac: RRR Lungs: CTA bilaterally Abdomen: Bowel normoactive X 4; Nontender to palpation Extremities: Warm. No LE edema noted. Neuro: No focal weakness Skin: No rash Results & Data Vital Signs (Past 12 Hours) Vital Signs Temp Pulse Resp BP Pulse Ox 03/29/19 08:16 36.8 C 80 17 107/62 91 03/29/19 00:11 36.8 C 85 20 112/65 92
--- NOTE | 2019-03-29 10:36 | Progress Note ---
DATE: 03/29/2019 ONCOLOGY PROGRESS NOTE DIAGNOSES: 1. Hypercalcemia, attributable to malignancy. 2. End-stage metastatic bladder cancer. 3. Anemia, attributable to chemotherapy. 4. Elevated LFTs. 5. General decline/asthenia. SUBJECTIVE: Jaqui was seen and examined at bedside. She is clearly withdrawn; however, has accepted her prognosis and fate. Jaqui has decided to enroll in hospice care after this may have her family. Reminded Jaqui that she needs to do what is best for her. She fully understands the terminal nature of her disease and has not done very well on the PD-L1 inhibitor recently started. She has had increasing difficulty with performing activities of daily living and again has accepted the fact that the disease is winning. Her pain is well controlled. Her p.o. intake is marginal at best. Nursing reports no overnight difficulties. OBJECTIVE: GENERAL: A very pleasant but withdrawn a 68-year-old female patient in no acute distress. VITAL SIGNS: Temperature 36.8, pulse 80, respiratory rate 17, blood pressure 107/62. SKIN: Without rash or lesion. Pale in appearance. HEENT: Oral mucosa is dry. No buccal lesions or ulcerations. HEART: Regular rate and rhythm. LUNGS: Clear to auscultation bilaterally. ABDOMEN: Soft, nontender, nondistended. EXTREMITIES: No clubbing, cyanosis or edema. NEUROLOGIC: Grossly intact. IMPRESSION: 1. Hypercalcemia, attributable to malignancy. 2. End-stage metastatic bladder cancer (bone and liver). 3. Chemotherapy-induced anemia. 4. Elevated liver transaminases. 5. Asthenia/generalized weakness, general clinical decline. PLAN: I had a very nice but stat discussion with Jaqui today. She is clearly of the mindset of pursuing palliative avenues at this juncture. I support her decision and fully understand the rationale for the decision. Jaqui has been in steady decline over the past several weeks, can no longer prepare meals for herself, has difficulty getting around and has had significant pain exacerbations. In essence, she has given up and wishes to be palliated moving forward. Apparently, this did not sit well with family members, but again reminded her that ultimately she is the one has to go through any treatment moving forward and hopefully her family will understand and accept Jauqi's wishes. I have nothing further to add, but would be more than happy to assist her hospice care upon discharge.
[2019-03-29] MEDS: ENOXAPARIN INJ 40 MG/0.4 ML SYR SQ SCH (19:36)
[2019-03-29] MEDS: GABAPENTIN 300 MG CAP PO SCH (19:36)
[2019-03-30] MEDS: HEPARIN 100 UNIT/ML 5ML FLUSH IV PRN ×2 (05:33→15:44)
[2019-03-30 05:46] LABS: Hematocrit (blood only) 35.7 % (37-47); Hemoglobin 11.6 g/dL (12.0-16.0); Mean Corpuscular Hgb Conc 32.5 g/dL (32-36); Mean Corpuscular Volume 89.7 fL (80-100); Mean Platelet Volume 9.3 fL (7.4-10.4); Platelet Count 240 K/uL (130-400); Red Blood Count 3.98 M/uL (4.2-5.4); White Blood Count 8.06 K/uL (4.8-10.8)
[2019-03-30 06:20] LABS: Calcium 10.9 mg/dl (8.5-10.1); Creatinine Clr Calc Pharmacy 52.7 ml/min; Est GFR (African American) 92.8; Potassium 4.2 mmol/L (3.5-5.1)
[2019-03-30] MEDS: CHOLECALCIFEROL 1,000 UNITS TAB PO SCH (08:39)
[2019-03-30] MEDS: ASPIRIN/ALUM/MAGNES/CAL CARB 325 MG TAB PO SCH (08:40)
[2019-03-30] MEDS: DOCUSATE SODIUM/SENNA 50/8.6MG TAB PO SCH ×2 (08:40→20:33)
[2019-03-30] MEDS: POLYETHYLENE (MIRALAX) 17 GM PACK PO SCH (08:40)
--- NOTE | 2019-03-30 12:04 | Hospitalist Progress Note ---
Date of Service March 30, 2019 Assessment & Plan (1) Bladder cancer metastasized to bone: Follows with oncology; was recently started on Tecentriq as outpatient due to progression of disease. - Has left inferior pubic ramus lesion, right acetabular lesion and left proximal femoral lesion noted on most recent imaging. - Continue Oxycodone PRN. - Discussed prognosis & discharge planning with the family on 03/28 -- pt. would like to transition to hospice and discontinue all therapy. (2) Comfort measures only status: Plan as above (3) Hypercalcemia: Corrected calcium level was 12.6 in setting of metastatic bladder cancer with nilda metastasis and calcium supplementation. - Level down to 10.9 on 03/30. - Zometa 4 mg IV on 03/25/19. - Discontinued all calcium supplementation at discharge. (4) Peripheral neuropathy due to chemotherapy: - Continue Gabapentin 300 mg qhs. (5) Weakness: Likely related to metastatic bladder cancer and chemotherapy. - PT/OT recommended 24 hour supervision at home vs. SNF -- pt. does not have family support to provide 24 hour supervision. - Family meeting on 03/28 - would like to transition to hospice; will need SNF placement with hospice due to lack of 24 hour care at home. (6) Hypertension: - Held metoprolol in setting of hypotension. - Has been normotensive without med, will continue to hold beta martin. (7) PVD (peripheral vascular disease): - Stopped aspirin 325 mg daily, due to comfort measures. (8) Constipation: - Senokot S BID with Miralax daily scheduled. (9) Lower extremity edema: May be related to hypoalbuminemia. Doppler of bilat LE was negative for DVT. - No indication for diuresis. (10) Severe protein-calorie malnutrition: - In setting of stage IV bladder cancer, poor PO intake. - Encourage PO intake with supplements as tolerated. (11) DVT prophylaxis: - SCDs - Patient is comfort status and does not want Lovenox injections. Discussed possibility of VTE, and she is ok with this risk. Subjective In minimal pain with the oxy 10mg. Review of Systems Review of Systems: All systems reviewed & are unremarkable except as noted in HPI & below Physical Exam Constitutional: WD/WN, vitals as above Eyes: EOM intact bilaterally; no conjunctival abnormality ENMT: external ear and nose normal, oropharynx normal Neck: trachea midline, no thyromegaly normal visual inspection Respiratory: normal respiratory effort, lungs clear to auscultation no respiratory distress Cardiovascular: RRR, no murmur, no edema Gastrointestinal (Abdomen): Inspection/Auscultation: abdomen normal to inspection; abdomen not distended Musculoskeletal: no cyanosis or clubbing, extremities motor strength 5/5 Skin: no rashes, warm and dry Neurologic: moves all extremities and awake Psychiatric: Orientation: alert, oriented to person and cooperative Results & Data Vital Signs (Past 12 Hours) Vital Signs Temp Pulse Resp BP Pulse Ox 03/30/19 07:33 36.7 C 75 18 101/58 L 92 03/30/19 00:01 36.6 C 81 16 105/60 94
[2019-03-30] MEDS: OXYCODONE HCL IR 5 MG TAB (IMMEDIATE RELEASE) PO PRN ×2 (15:43→20:33)
[2019-03-30] MEDS: GABAPENTIN 300 MG CAP PO SCH (20:33)
[2019-03-30 21:09] LABS: Appearance Urine Cloudy (Clear); Bilirubin Urine Negative (Negative); Blood Urine 3+ (Negative); Color Urine Amber; Glucose Urine UA Negative (Negative); Ketones Urine Negative (Negative); Leukocyte Esterase Urine 3+ (Negative); Nitrite Urine Positive (Negative); Specific Gravity Urine <= 1.005 (1.000-1.030); Urobilinogen Urine Negative (Negative); pH Urine >= 9.0 (4.5-7.5)
[2019-03-30 21:23] LABS: Protein Urine 2+ (Negative)
[2019-03-30 21:30] LABS: Epithelial Cell Urine 0-5 /lpf (0-5); RBC Urine >30 /hpf (0-4)
[2019-03-30 21:31] LABS: Bacteria Urine 3+ (Negative); Triple Phosphate Crystal Urine Present (None Prsent)
--- NOTE | 2019-03-31 07:55 | Hospitalist Progress Note ---
Date of Service March 31, 2019 Assessment & Plan (1) Bladder cancer metastasized to bone: Follows with oncology; was recently started on Tecentriq as outpatient due to progression of disease. - Has left inferior pubic ramus lesion, right acetabular lesion and left proximal femoral lesion noted on most recent imaging. - Continue Oxycodone PRN. - Discussed prognosis & discharge planning with the family on 03/28 -- pt. would like to transition to hospice and discontinue all therapy. - Patient and are in agreement with discharge to [facility] when available. (2) Comfort measures only status: Plan as above (3) Hypercalcemia: Corrected calcium level was 12.6 in setting of metastatic bladder cancer with nilda metastasis and calcium supplementation. - Level down to 10.9 on 03/30. - Zometa 4 mg IV on 03/25/19. - Discontinued all calcium supplementation at discharge. - Stopped checking on 03/30 for comfort measures (4) Peripheral neuropathy due to chemotherapy: - Continue Gabapentin 300 mg qhs. (5) Weakness: Likely related to metastatic bladder cancer and chemotherapy. - PT/OT recommended 24 hour supervision at home vs. SNF -- pt. does not have family support to provide 24 hour supervision. - Family meeting on 03/28 - would like to transition to hospice; will need SNF placement with hospice due to lack of 24 hour care at home. (6) Hypertension: - Held metoprolol in setting of hypotension. - Has been normotensive without med, will continue to hold beta martni. (7) PVD (peripheral vascular disease): - Stopped aspirin 325 mg daily, due to comfort measures and mild hematuria from ostomy. (8) Constipation: - Senokot S BID with Miralax daily scheduled. (9) Lower extremity edema: May be related to hypoalbuminemia. Doppler of bilat LE was negative for DVT. - No indication for diuresis. (10) Severe protein-calorie malnutrition: - In setting of stage IV bladder cancer, poor PO intake. - Encourage PO intake with supplements as tolerated. (11) DVT prophylaxis: SCDs - Patient is comfort status and does not want Lovenox injections. Discussed possibility of VTE, and she is ok with this risk. Subjective With some continued bone pain. Still with hematuria, though improving. Review of Systems Constitutional: + fatigue, + weakness and + anorexia; no fever and no chills Musculoskeletal: + back pain, + joint pain, + myalgia and + body aches Physical Exam Constitutional: WD/WN, vitals as above Eyes: EOM intact bilaterally; no conjunctival abnormality ENMT: external ear and nose normal, oropharynx normal Neck: trachea midline, no thyromegaly normal visual inspection Respiratory: normal respiratory effort, lungs clear to auscultation no respiratory distress Cardiovascular: RRR, no murmur, no edema Gastrointestinal (Abdomen): Inspection/Auscultation: abdomen normal to inspection; abdomen not distended Musculoskeletal: no cyanosis or clubbing, extremities motor strength 5/5 Skin: no rashes, warm and dry Neurologic: moves all extremities and awake Psychiatric: Orientation: alert, oriented to person and cooperative
[2019-03-31] MEDS: DOCUSATE SODIUM/SENNA 50/8.6MG TAB PO SCH ×2 (08:10→20:36)
[2019-03-31] MEDS: POLYETHYLENE (MIRALAX) 17 GM PACK PO SCH (08:14)
--- NOTE | 2019-03-31 13:43 | Palliative Care Progress Note ---
Date of Service March 31, 2019 Assessment & Plan (1) Palliative care encounter: Patient is a 68-year-old female who has past medical history significant for metastatic urothelial carcinoma with extensive bony mets-primarily in the pelvis as well as liver mets. Patient was diagnosed in July 2016-underwent an initial treatment and had done well until she had a recurrence in November 2017. Patient underwent cystectomy in December, nodes were positive at that time. Patient was found to have pelvic metastases in June 2018-received XRT, completed on 11/23/18. Patient was instructed to come to the emergency room on 03/25 due to abnormal lab results-patient had an elevated calcium level -her calcium was nearly 13 when corrected for her low albumin. Patient's ionized calcium was elevated at 1.62. Patient's past medical history is significant for PVD-status post stent, osteoarthritis, hypertension, HLD, osteoporosis-on Fosamax, and chemo-induced peripheral neuropathy. Patient states her bone pain pain has been well controlled with oxycodone at 10 mg prn. On admission patient was treated with IV fluids and a dose of Zometia -calcium level decreased to 10.7-approximately 12 when corrected for her low albumin. Calcium level today is 10.9, albumin 2.1. Patient and family discussion over the weekend has changed her goals to transfer to [facility] under hospice care -Patient will remain a DNR -Ybeblbngtltvx-onaeuoor-uzfyft calcium levels to increase given extensive bone mets and no further treatment -Metastatic urothelial carcinoma-no further chemo -Filled out healthcare surrogate paperwork naming son Yordan as healthcare surrogate-this was done again today due to patient losing copy we have done last week-son needs a copy to have with him. Copy placed in medical record. -Extensive bony mets with pathological fracture of the left inferior pubic ramus-pain well controlled with oxycodone IR-10 mg in the morning, 10 mg in the afternoon and 5 mg nightly -Constipation-patient on senna S and MiraLAX. -Peripheral neuropathy-continue Neurontin 300 mg nightly -Goal is to transfer to [facility] under hospice care (2) Hypercalcemia: Improved -expect calcium levels to rise given extensive bony mets and disease progression-patient transitioning to comfort care (3) Weakness: Plan is for admission at [facility] under hospice care (4) Bladder cancer metastasized to bone: Patient transitioning to comfort care (5) Pathological fracture in neoplastic disease, pelvis, initial encounter for fracture: Pain well controlled on current oxycodone as needed (6) Metastases to the liver: Comfort care (7) Presence of urostomy: Subjective Patient seen and examined in her room. Patient's son Yordan, at bedside. Over the holiday weekend further discussions with patient and family have resulted in the decision for patient to be transferred to [facility] when bed available under hospice care. Patient will discontinue current therapies regarding hypercalcemia and no further chemo. Patient slightly more confused on exam this a.m.-calcium level was 10.9 with an albumin of 2.1-this corrects to a calcium level of nearly 12. Discussed at length with son and patient what to expect as calcium levels continue to increase-including increased confusion. Patient stated she had no concerns at this time. Was able to talk to the son privately regarding end-of-life issues given patient's current disease. Answered all his questions and addressed his concerns. Patient's pain is well controlled code on 10 mg as needed-she has required 2 doses in the past 24 hours. Review of Systems Review of Systems: Patient denies fever, chills, chest pain, shortness of breath, or new GI/ issues. Physical Exam Physical Exam: PE: Awake, alert, more confused HEENT: EOMI, normal hearing Respirations: Unlabored CV: Regular rate, no edema Abdomen: Distended, urostomy in place : Urostomy in place-tea colored urine in bag Extremities: Generalized weakness Neuro: Slightly increased confusion Total Time Total time spent 35 minutes with greater than 50% of the time spent at bedside discussing end-of-life issues at length with both patient and son
[2019-03-31] MEDS: OXYCODONE HCL IR 5 MG TAB (IMMEDIATE RELEASE) PO PRN (20:35)
[2019-03-31] MEDS: GABAPENTIN 300 MG CAP PO SCH (20:35)
[2019-04-01] MEDS: POLYETHYLENE (MIRALAX) 17 GM PACK PO SCH (07:53)
[2019-04-01] MEDS: DOCUSATE SODIUM/SENNA 50/8.6MG TAB PO SCH ×2 (07:53→19:42)
[2019-04-01] MEDS: HEPARIN 100 UNIT/ML 5ML FLUSH IV PRN (09:46)
--- NOTE | 2019-04-01 15:06 | Hospitalist Progress Note ---
Date of Service April 01, 2019 Assessment & Plan (1) Bladder cancer metastasized to bone: Follows with oncology; was recently started on Tecentriq as outpatient due to progression of disease. - Has left inferior pubic ramus lesion, right acetabular lesion and left proximal femoral lesion noted on most recent imaging. - Continue oxycodone PRN. - Discussed prognosis & discharge planning with the family on 03/28 -- pt. would like to transition to hospice and discontinue all therapy. - Patient and are in agreement with discharge to [facility] when available. (2) Comfort measures only status: Plan as above (3) Hypercalcemia: Corrected calcium level was 12.6 in setting of metastatic bladder cancer with nilda metastasis and calcium supplementation. - Level down to 10.9 on 03/30. - Zometa 4 mg IV on 03/25/19. - Discontinued all calcium supplementation at discharge. - Stopped checking on 03/30 for comfort measures (4) Peripheral neuropathy due to chemotherapy: - Continue Gabapentin 300 mg qhs. (5) Weakness: Likely related to metastatic bladder cancer and chemotherapy. - PT/OT recommended 24 hour supervision at home vs. SNF -- pt. does not have family support to provide 24 hour supervision. - Family meeting on 03/28 - would like to transition to hospice; will need SNF placement with hospice due to lack of 24 hour care at home. (6) Hypertension: - Held metoprolol in setting of hypotension. - Has been normotensive without med, will continue to hold beta martin. (7) PVD (peripheral vascular disease): - Stopped aspirin 325 mg daily, due to comfort measures and mild hematuria from ostomy. (8) Constipation: - Senokot S BID with Miralax daily scheduled. (9) Lower extremity edema: May be related to hypoalbuminemia. Doppler of bilat LE was negative for DVT. - No indication for diuresis. (10) Severe protein-calorie malnutrition: - In setting of stage IV bladder cancer, poor PO intake. - Encourage PO intake with supplements as tolerated. (11) DVT prophylaxis: SCDs - Patient is comfort status and does not want Lovenox injections. Discussed possibility of VTE, and she is ok with this risk. Subjective Very comfortable this morning. No pain. Review of Systems Review of Systems: All systems reviewed & are unremarkable except as noted in HPI & below Physical Exam Constitutional: WD/WN, vitals as above Eyes: EOM intact bilaterally; no conjunctival abnormality ENMT: external ear and nose normal, oropharynx normal Neck: trachea midline, no thyromegaly normal visual inspection Respiratory: normal respiratory effort, lungs clear to auscultation no respiratory distress Cardiovascular: RRR, no murmur, no edema Gastrointestinal (Abdomen): Inspection/Auscultation: abdomen normal to inspection; abdomen not distended Musculoskeletal: no cyanosis or clubbing, extremities motor strength 5/5 Skin: no rashes, warm and dry Neurologic: moves all extremities and awake Psychiatric: Orientation: alert, oriented to person and cooperative
[2019-04-01] MEDS: OXYCODONE HCL IR 5 MG TAB (IMMEDIATE RELEASE) PO PRN (19:40)
[2019-04-01] MEDS: GABAPENTIN 300 MG CAP PO SCH (19:42)
[2019-04-02] MEDS: POLYETHYLENE (MIRALAX) 17 GM PACK PO SCH (07:22)
[2019-04-02] MEDS: DOCUSATE SODIUM/SENNA 50/8.6MG TAB PO SCH (07:22)
[2019-04-02] MEDS: HEPARIN 100 UNIT/ML 5ML FLUSH IV PRN (14:28)
--- NOTE | 2019-04-02 16:17 | Palliative Care Progress Note ---
Date of Service April 02, 2019 Assessment & Plan (1) Palliative care encounter: Patient is a 68-year-old female who has past medical history significant for metastatic urothelial carcinoma with extensive bony mets-primarily in the pelvis as well as liver mets. Patient was diagnosed in July 2016-underwent an initial treatment and had done well until she had a recurrence in November 2017. Patient underwent cystectomy in December, nodes were positive at that time. Patient was found to have pelvic metastases in June 2018-received XRT, completed on 11/23/18. Patient was instructed to come to the emergency room on 03/25 due to abnormal lab results-patient had an elevated calcium level -her calcium was nearly 13 when corrected for her low albumin. Patient's ionized calcium was elevated at 1.62. Patient's past medical history is significant for PVD-status post stent, osteoarthritis, hypertension, HLD, osteoporosis-on Fosamax, and chemo-induced peripheral neuropathy. Patient states her bone pain pain has been well controlled with oxycodone at 10 mg prn. On admission patient was treated with IV fluids and a dose of Zometia -calcium level decreased to 10.7-approximately 12 when corrected for her low albumin. Calcium level has been stable at 10.9, with albumin of 2.1. Patient and family goals are to transfer to [facility] under hospice care- patient be transferred this afternoon -Patient will remain a DNR -Fkjgwmzjeygml-dgfshdsj-ytjmld calcium levels to increase given extensive bone mets and no further treatment -Metastatic urothelial carcinoma-no further chemo -Filled out healthcare surrogate paperwork naming son Yordan as healthcare surrogate -Extensive bony mets with pathological fracture of the left inferior pubic ramus-pain well controlled with oxycodone IR-10 mg as needed-last dose was on 04/01 at 1940 -Constipation-patient on senna S and MiraLAX. -Peripheral neuropathy-continue Neurontin 300 mg nightly -Goal is to transfer to [facility] under hospice care Subjective Patient seen and examined this afternoon prior to discharge, no family at bedside. Patient more confused, no acute distress. She denies any pain, only notes some mild abdominal discomfort around her urostomy. Patient only receiving oxycodone as needed for pain-last dose was on 04/01 at 1940 Review of Systems Gastrointestinal: Patient denies fever, chills, chest pain, increased shortness of breath, or worsening abdominal pain. No new issues per nursing Physical Exam Physical Exam: PE: Patient appears comfortable, NAD HEENT: EOMI, hearing within normal limits Respirations: Unlabored, no rhonchi CV: Regular rate, no increased edema Abdomen: Soft, distended, mild discomfort with moderate palpation and area surrounding urostomy Neuro: Patient slightly more confused Results & Data Vital Signs (Past 12 Hours) Vital Signs Temp Pulse Resp BP BP Pulse Ox 04/02/19 12:03 97.7 F 71 16 110/67 102/61 95 Time Spent Attending Total time spent 35 minutes with greater than 50% of the time spent at bedside evaluating patient's pain control as well as answering any of her questions prior to discharge.
--- NOTE | 2019-04-02 18:13 | Discharge Summary ---
Date of Service April 02, 2019 Admission HPI Per Admitting Provider Mrs. Gold is a 68 year old with metastatic bladder cancer, neuropathy, HTN, HLD, PVD who presented to the ER with abnormal lab work. She was admitted 01/23- 01/26 for progression of metastatic bladder cancer and HCAP. Palliative care and oncology were both consulted; code status was DNR/DNI but pt. requested to continue to proceed with chemotherapy. Pt. follows with Dr. Shea and has routine lab work as an outpatient prior to chemotherapy sessions. Corrected calcium level was 12.3 on 03/24/19; she received a call from her oncologist and was directed to come to the hospital for admission. Pt. feels well overall with exception of myalgias/bone pain in setting of metastatic disease. She has generalized pain in the groin area, left hip, low back, and abdomen. Pain is worse with movement, stable at rest. Has nausea at home, denies vomiting. Has not had a BM in 2 days; normally has a BM every 2-3 days. Has been taking Oxycodone 10 mg in the morning and mid afternoon and 5 mg at bedtime for cancer related pain. Denies fever/chills, chest pain, SOB, URI symptoms, LE edema, foul smelling urine. ER course: Corrected calcium level was 12.6. Pt. also had increasing LFTs on lab work. CXR showed resolution of previous opacities, no evidence of acute PNA. She received a 500 cc bolus. Will be admitted for further treatment/evaluation of hypercalcemia. Principal Diagnosis Metastatic bladder cancer Discharge Exam Constitutional WD/WN, vitals as above Eyes EOM intact bilaterally; no conjunctival abnormality ENMT external ear and nose normal, oropharynx normal Neck trachea midline, no thyromegaly normal visual inspection Respiratory normal respiratory effort, lungs clear to auscultation no respiratory distress Cardiovascular RRR, no murmur, no edema Gastrointestinal (Abdomen) Inspection/Auscultation: abdomen normal to inspection; abdomen not distended Musculoskeletal no cyanosis or clubbing, extremities motor strength 5/5 Skin no rashes, warm and dry Neurologic moves all extremities and awake Psychiatric Orientation: alert, oriented to person and cooperative Discharge Data Allergies Allergy/AdvReac Type Severity Reaction Status Date / Time No Known Allergies Allergy Verified 01/23/19 00:03 Consultations 03/25/19 15:54 ED Decision to Admit Stat 03/25/19 18:19 Consult Palliative Care Routine 03/26/19 04:44 Consult Oncology Routine Ordered Studies 03/25/19 19:58 US venous doppler LE Routine Hospital Course (1) Bladder cancer metastasized to bone: Follows with oncology; was recently started on Tecentriq as outpatient due to progression of disease. - Has left inferior pubic ramus lesion, right acetabular lesion and left proximal femoral lesion noted on most recent imaging. - Continue oxycodone PRN. - Discussed prognosis & discharge planning with the family on 03/28 -- pt. would like to transition to hospice and discontinue all therapy. - Patient and are in agreement with discharge to [facility] when available. (2) Comfort measures only status: Plan as above (3) Hypercalcemia: Corrected calcium level was 12.6 in setting of metastatic bladder cancer with nilda metastasis and calcium supplementation. - Level down to 10.9 on 03/30. - Zometa 4 mg IV on 03/25/19. - Discontinued all calcium supplementation at discharge. - Stopped checking on 03/30 for comfort measures (4) Peripheral neuropathy due to chemotherapy: - Continue Gabapentin 300 mg qhs. (5) Weakness: Likely related to metastatic bladder cancer and chemotherapy. - PT/OT recommended 24 hour supervision at home vs. SNF -- pt. does not have family support to provide 24 hour supervision. - Family meeting on 03/28 - would like to transition to hospice; will need SNF placement with hospice due to lack of 24 hour care at home. (6) Hypertension: - Held metoprolol in setting of hypotension. - Has been normotensive without med, will continue to hold beta martin. (7) PVD (peripheral vascular disease): - Stopped aspirin 325 mg daily, due to comfort measures and mild hematuria from ostomy. (8) Constipation: - Senokot S BID with Miralax daily scheduled. (9) Lower extremity edema: May be related to hypoalbuminemia. Doppler of bilat LE was negative for DVT. - No indication for diuresis. (10) Severe protein-calorie malnutrition: - In setting of stage IV bladder cancer, poor PO intake. - Encourage PO intake with supplements as tolerated. (11) DVT prophylaxis: SCDs - Patient is comfort status and does not want Lovenox injections. Discussed possibility of VTE, and she is ok with this risk. Total Time Total Time Spent Total Time Spent (In Minutes): 35 Discharge Plan Discharge Items Patient Disposition: Transfer Halfway Fac Reason For Visit: HYPERCALCEMIA Discharge Diagnosis: Metastatic bladder cancer Discharge Goals: Decrease discomfort and Improve disease control Activity: Resume your previous activity Non-emergency contact: Primary Care Provider Call non-emergency contact if: you have any medication questions and your symptoms worsen Follow-up/Referrals: Ashwin Shea DO [Physician] - 04/01/19 9:50 am (Please, follow up with Dr. Shea at [facility]. Call the office at [phone].) Ashwin Ji [Primary Care Provider] - 04/02/19 1:00 pm (Please, follow up with Ashwin Ji PA-C on April 02 at 1:00 pm. *If you need to change this appointment, call the office at [phone].) Diet: Regular Addtl Provider Instructions: Ms. Gold was discharged on hospice for metastatic bladder cancer. She declined further cancer treatments. Prescriptions: New oxycodone 5 mg Tablet 10 mg PO Q4H PRN (Reason: pain) Qty: 5 RF: 0 polyethylene glycol 3350 [Miralax] 17 gram Powder In Packet 17 g PO DAILY Qty: 1 RF: 0 sennosides-docusate sodium [Senokot-S] 8.6-50 mg Tablet 1 tab PO BID Qty: 1 RF: 0 Continued gabapentin 300 mg Capsule 300 mg PO QPM RF: 0 ondansetron 8 mg tablet,disintegrating 8 mg translingual Q8H PRN (Reason: Nausea) RF: 0 Discontinued potassium chloride 10 mEq Tablet Extended Release 10 meq PO QAM RF: 0 aspirin, buffered 325 mg Tablet 325 mg PO QAM RF: 0 atorvastatin 40 mg Tablet 40 mg PO QPM RF: 0 cholecalciferol (vitamin D3) [Vitamin D3] 1,000 unit Capsule 1,000 unit PO QAM RF: 0 vitamin E 400 unit Capsule 400 unit PO QAM RF: 0 oxycodone 5 mg Tablet 5 - 10 mg PO TID PRN (Reason: Pain) RF: 0 alendronate 70 mg tablet 70 mg PO WK RF: 0 calcium carbonate [Calcium 500] 500 mg calcium (1,250 mg) Tablet 500 mg PO BID RF: 0 metoprolol tartrate 50 mg tablet 50 mg PO BID RF: 0 Stand-Alone Forms: [facility] Discharge Orders: Discharge Order (Routine); Ordered 04/02/19 Ordered By: Anil Palumbo Skilled Items Patient informed of condition?: Yes DNR: Yes Discharge Level of Care: Skilled Communicable Disease: No Discharge Prognosis: Stable Admission Data Admit Date/Time: 03/26/19 14:01 Attending Provider: Anil Palumbo Admit Provider: Devendra Peters Primary Care Provider: Ashwin Ji Other Providers: Chelsey Werner ; Megan Rasheed ; Ashwin Shea V Service: Medical Other Interventions: Discharge Summary Assessment (RN) Last Done: 04/02/19 12:03 DC Date/Time DO NOT enter until pt leaves facility: 04/02/19 15:03
== END 2019-04-02 15:03 | disposition hospice, inpatient (51) | DRG 640 ==
LOC: 2N 14:35 → ED 14:35 → 2N 17:47 → SUATTDRO 03-26 14:01 → 4E 03-30 15:38